=== PATIENT | female | born 1975 | race Caucasian/White ===

== ENCOUNTER → 2016-05-23 | Outpatient (CLI) | payer BC ==
--- NOTE | 2016-05-24 11:07 | MM ---
Reason for exam: clinical finding. Last mammogram was performed 4 years and 11 months ago. Physical Findings: Nurse did not find any significant physical abnormalities on exam. [facility] Diagnostic Mammo w CAD NICHOLAS Bilateral CC and MLO view(s) were taken. Prior study comparison: June 07, 2011, mammogram, performed at [facility]. The breast tissue is heterogeneously dense. This may lower the sensitivity of mammography. Finding: There are typically benign round calcifications in the left breast. There is no discrete abnormality. These results were verbally communicated with the patient on 05/24/16. ASSESSMENT: Benign, BI-RAD 2 RECOMMENDATION: Routine screening mammogram of both breasts in 1 year.
== END | disposition home or self-care (01) ==
LOC: RADMAMWWP 15:45
PROVIDERS: ATTEND Internal Medicine
DX: N64.52 Nipple discharge (principal)

== ENCOUNTER → 2016-06-12 | Outpatient (CLI) | payer BC ==
--- NOTE | 2016-06-13 07:36 | USB ---
Reason for exam: clinical finding. Indicated problem(s): non-bloody discharge and pain in both breasts. Physical Findings: Nurse Summary: Patient complains of right breast lump for two years bilateral hart/green discharge, bilateral tenderness (nurse mm). US Breast BILAT Right breast ultrasound including all four quadrants, the retroareolar region and axilla demonstrates a 0.7 x 0.8 x 0.6cm oval cystic cluster at 12 o'clock and a 0.4 x 0.3 x 0.7cm cystic cluster at 6 o'clock. Left breast ultrasound including all four quadrants, the retroareolar region and axilla demonstrates a 0.8 x 0.4 x 0.9cm oval, cystic cluster at 11 o'clock. These results were verbally communicated with the patient and result sheet given to the patient on 06/12/16. ASSESSMENT: Benign, BI-RAD 2 RECOMMENDATION: Routine screening mammogram of both breasts in 1 year. Manage patient on a clinical basis.
== END | disposition home or self-care (01) ==
LOC: RADUSWWP 15:50
PROVIDERS: ATTEND Surgery
DX: N64.52 Nipple discharge (principal); N64.4 Mastodynia

== ENCOUNTER 2019-09-06 00:44 | Emergency (ER) | payer BC, OTHER ==
[2019-09-06 00:50] VITALS: BP 113/77; PULSE 96; RESP 18; TEMP 98
--- NOTE | 2019-09-06 01:38 | ED ---
ENT HPI - General Chief complaint: ENT Stated complaint: Ear Pain Time Seen by Provider: 09/06/19 01:02 Source: patient Limitations: no limitations - History of Present Illness Initial comments: 44 year-old female patient presents to the emergency department today for evaluation of right ear pain and discomfort. Patient states that for the last 2-3 days her right ear has been very itchy. States she has been itching it with her finger and Q-tips. Patient states today it seemed to be more irritated and tender to the touch. Denies any drainage from the ear. Denies any history of diabetes or other medical conditions. Denies fever or chills. States that she has been having some clear nasal drainage and increase in her ALLERGY symptoms over the last few days. She has been taking [id number] medication for this. - Related Data Previous Rx's Medication Instructions Recorded Ofloxacin 0.3% Otic Soln [Floxin 5 drops RIGHT EAR BID #15 ml 09/06/19 0.3% Otic Soln] Allergies Allergy/AdvReac Type Severity Reaction Status Date / Time paroxetine [From Paxil] Allergy Hallucinati Verified 09/06/19 00:50 ons prochlorperazine Allergy Itching Verified 09/06/19 00:50 [From Compazine] Review of Systems ROS Statement: Those systems with pertinent positive or pertinent negative responses have been documented in the HPI. ROS Other: All systems not noted in ROS Statement are negative. Past Medical History Past Medical History: Hypertension Additional Past Medical History / Comment(s): cervical cancer when 13 years old History of Any Multi-Drug Resistant Organisms: None Reported Past Surgical History: Cholecystectomy, Tubal Ligation Past Psychological History: No Psychological Hx Reported Smoking Status: Current every day smoker Past Alcohol Use History: Rare Past Drug Use History: Marijuana General Exam Limitations: no limitations General appearance: alert, in no apparent distress, other (This is a well-developed, well-nourished adult female patient in no acute distress. Vital signs upon presentation are temperature 98.0F, pulse 96, respirations 18, blood pressure 113/77, pulse ox 100% on room air.) Eye exam: Present: normal appearance, PERRL, EOMI. Absent: scleral icterus, conjunctival injection, periorbital swelling ENT exam: Present: normal oropharynx, mucous membranes moist, TM's normal bilaterally, normal external ear exam (External auditory canal to the right side that shows some erythema and abrasion.) Respiratory exam: Present: normal lung sounds bilaterally. Absent: respiratory distress, wheezes, rales, rhonchi, stridor Cardiovascular Exam: Present: regular rate, normal rhythm, normal heart sounds. Absent: systolic murmur, diastolic murmur, rubs, gallop, clicks GI/Abdominal exam: Present: normal bowel sounds Course Vital Signs 09/06/19 00:46 Temperature 98 F Pulse Rate 96 Respiratory 18 Rate Blood Pressure 113/77 O2 Sat by Pulse 100 Oximetry Medical Decision Making - Medical Decision Making 44 year-old female patient presents to the emergency department today for right ear tenderness and discomfort. Physical examination does reveal your canal abrasion. No swelling or drainage. No fever or chills. Patient was advised to not insert anything into her ear. She is instructed to take ibuprofen and Tylenol for pain control. She'll be given a prescription for ofloxacin eardrops if her symptoms should worsen or persist beyond 2 days. She is instructed to follow-up with her primary care physician for recheck in 1-2 days. Return parameters were discussed in detail. She verbalizes understanding and agrees with this plan. Disposition Clinical Impression: Ear canal abrasion Disposition: HOME SELF-CARE Condition: Good Instructions (If sedation given, give patient instructions): Earache (ED), Abrasion (ED) Additional Instructions: Use drops if symptoms don't improve over the next two days. Follow up with your primary care physician for recheck in 1-2 days. Return to the emergency department for any new, worsening, or concerning symptoms. Prescriptions: Ofloxacin 0.3% Otic Soln [Floxin 0.3% Otic Soln] 5 drops RIGHT EAR BID #15 ml Is patient prescribed a controlled substance at d/c from ED?: No Referrals: Manuel Bowman MD [Primary Care Provider] - 1-2 days Time of Disposition: 01:37
== END 2019-09-06 01:56 | disposition home or self-care (01) ==
LOC: EC 00:44
DX: S00.411A Abrasion of right ear, initial encounter (principal); F17.200 Nicotine dependence, unspecified, uncomplicated; Z85.41 Personal history of malignant neoplasm of cervix uteri; Z88.8 Allergy status to other drugs, medicaments and biological substances; X58.XXXA Exposure to other specified factors, initial encounter
CPT/HCPCS: 99282

== ENCOUNTER 2020-10-05 | Emergency (ER) | payer OTHER | END 2020-10-06 00:16 | disposition home or self-care (01) | CPT/HCPCS: 70450; 70486; 72125; 99283 ==

== ENCOUNTER → 2022-11-16 | Outpatient (CLI) | payer OTHER ==
--- NOTE | 2022-11-16 11:24 | CT ---
EXAMINATION TYPE: CT lumbar spine wo con CT DLP: 886 mGycm, Automated exposure control for dose reduction was used. DATE OF EXAM: 11/16/2022 11:09 AM COMPARISON: None. CLINICAL INDICATION:Female, 47 years old with history of M51.26 OTHER INTERVERTEBRAL DISC DISPLACEMEN T; PHH, OTHER INTERVERTEBRAL DISC DISPLACEMENT TECHNIQUE: Multiple axial images were obtained from the midportion of T11 through the sacroiliac ирина nts. Soft tissue and bone windows in coronal and sagittal planes were obtained and reviewed. FINDINGS: Alignment: There are 5 lumbar type vertebral bodies within normal alignment. Bone: No evidence of fracture is identified. Discs: T12-L1: No spinal canal or neural foraminal stenosis is identified. L1-L2: Broad-based disc bulge with minimal effacement of the anterior thecal sac. Mild left neural fo raminal stenosis. The right neural foramen is patent. L2-L3: Broad-based disc bulge with mild effacement of the anterior thecal sac. Mild bilateral neural foraminal stenosis. L3-L4: Broad-based disc bulge with minimal effacement of the anterior thecal sac. Mild bilateral neur al foraminal stenosis. L4-L5: Broad-based disc bulge with mild effacement of the anterior thecal sac. Mild bilateral neural foraminal stenosis. L5-S1: Vacuum disc disease is present. Central disc protrusion with caudal migration of 6 mm superimp osed upon a broad-based disc bulge with mild effacement of anterior thecal sac. Mild to moderate left neural foraminal stenosis. The right neural foramen is patent. Other: Postcholecystectomy changes. IMPRESSION: 1. No evidence of fracture of the lumbar spine. 2. L5-S1 disc herniation with caudal migration resulting in mild central canal stenosis. There is mil d to moderate left neural foraminal stenosis at this level. 3. Mild multilevel degenerative disc disease as described above.
== END | disposition home or self-care (01) ==
LOC: RADCTMAIN 10:31
PROVIDERS: ATTEND Orthopaedic Surgery
DX: M51.26 Other intervertebral disc displacement, lumbar region (principal); M47.816 Spondylosis without myelopathy or radiculopathy, lumbar region; M48.061 Spinal stenosis, lumbar region without neurogenic claudication
CPT/HCPCS: 72131

== ENCOUNTER → 2022-11-16 | Outpatient (CLI) | payer OTHER | END | disposition home or self-care (01) | LOC: LABPAT 11:06 | PROVIDERS: ATTEND Orthopaedic Surgery | DX: Z01.812 Encounter for preprocedural laboratory examination (principal); M51.26 Other intervertebral disc displacement, lumbar region; M47.816 Spondylosis without myelopathy or radiculopathy, lumbar region; Z22.322 Carrier or suspected carrier of Methicillin resistant Staphylococcus aureus | CPT/HCPCS: 87070 ==

== ENCOUNTER → 2022-11-16 | Outpatient (CLI) | payer OTHER ==
[2022-11-16 16:37] LABS: Prothrombin Time 10.6 sec (9.0-12.0)
[2022-11-17 02:19] LABS: HCT 37.7 % (37.2-46.3); HGB 12.8 d/dL (12.0-15.0); MCH 32.1 pg (27.0-32.0); MCV 94.5 FL (80.0-97.0); Mean Platelet Volume 10.6 FL (9.5-12.2); NRBC Per 100 WBC 0 X 10*3/uL (0.00-0.01); Platelet Count 259 X 10*3/uL (140-440); RBC 3.99 X 10*6/uL (4.10-5.20); RDW 13.4 % (11.5-14.5); WBC 7.53 X 10*3/uL (4.50-10.00)
[2022-11-17 02:22] LABS: Blood Urea Nitrogen 6.3 mg/dL (9.0-27.0); Calcium 9.6 mg/dL (8.7-10.3); Chloride 104 mmol/L (96-109); Glucose 86 mg/dL (70-110); Potassium 3.9 mmol/L (3.5-5.5); Sodium 142 mmol/L (135-145)
== END | disposition home or self-care (01) ==
LOC: LABWHC1 11:08
PROVIDERS: ATTEND Orthopaedic Surgery
DX: Z01.812 Encounter for preprocedural laboratory examination (principal); M54.31 Sciatica, right side; M51.36 Other intervertebral disc degeneration, lumbar region
CPT/HCPCS: 36415; 80048; 85027; 85610

== ENCOUNTER → 2022-11-16 | Outpatient (CLI) | payer OTHER | END | disposition home or self-care (01) | LOC: LABWHC1 15:19 | PROVIDERS: ATTEND Orthopaedic Surgery | DX: Z53.9 Procedure and treatment not carried out, unspecified reason (principal) ==

== ENCOUNTER 2022-11-23 10:09 | Day surgery (SDC) | payer OTHER ==
--- NOTE | 2022-11-23 07:59 | P.HPOR ---
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 Month and Year of last PT date? Yes How many sessions? 12 Did it help? No Within the last 6 months Physician directed home exercise completed? Yes, the patient has trialed the physician directed home exercise program without relief of their symptoms. Medications Yes; List: Gabapentin, Motrin 800, Medrol Dosepak Alternative interventions Chiropractic:Yes Massage therapy:No R.I.C.E:Yes Brace: No Injections No RFA:No SUBJECTIVE: Ms. Bates returns to the office today for a pre-operative appointment for her L5-S1 MIS TLIF, right-sided approach. Since last visit patient reports an increase in pain and tension across the low back, buttocks and right leg associated with an increase in right foot numbness as well. Patient is tender to palpation of the low back. The patient continues to report a sharp, throbbing lumbar pain that has been ongoing for approximately 18 years with no known injury or trauma to indicate an exact onset of their symptoms. In addition to their lumbar pain, they continue to report that it radiates down into the bilateral lower extremities, associated with numbness and tingling through the L5-S1 dermatome. The patient states that her right lower extremity pain is much more severe than the left at this time. The patient notes radiating pain into the buttocks and groin. The patient notes decreased range of motion and mobility over the last several months. Patient also states that sneezing or coughing causes shooting low back pain. Overall, the patient has seen a progressive increase in symptoms since their initial onset. She notes that her symptoms are exacerbated by all activity, which makes it very difficult for her to complete many of her daily tasks. The patient is having severe sleep disturbances as well due to their ongoing pain and associated symptoms. Regarding treatments, the patient has previously trialed physical therapy, at home stretches/exercises, career services manager, at home heat/ice therapies, activity modification, and medication management, all with no significant or sustained relief of her symptoms. The patient denies trialing any other modalities at this time. For their symptoms, the patient has been taking Gabapentin, Motrin 800, and Medrol dosepak all without good relief of her symptoms. Otherwise the patient denies any f/c/sob/cp, no incision concerns, no bladder or bowel retention/incontinence, no perineal numbness/tingling, and ambulates independently today. HPI: Ms. Bates presents to the office on 10/04/22 for an evaluation of their low back pain. The patient reports a sharp, throbbing lumbar pain that has been ongoing for approximately 18 years with no known injury or trauma to indicate an exact onset of their symptoms. In addition to their lumbar pain, they do report that it radiates down into the bilateral lower extremities, associated with numbness and tingling through the L5-S1 dermatome. The patient states that his right lower extremity pain is much more severe than the left at this time. The patient notes a worsening throbbing pain throughout the posterior right thigh. The patient notes radiating pain into the buttocks and groin as well. The patient notes decreased range of motion and mobility over the last 1 to 2 months. Overall, the patient has seen a progressive increase in symptoms since their initial onset. She notes that her symptoms are exacerbated by all activity, w hich makes it very difficult for her to complete many of her daily tasks. The patient is having severe sleep disturbances as well due to their ongoing pain and associated symptoms. Regarding treatments, the patient has previously trialed physical therapy, at home stretches/exercises, career services manager, at home heat/ice therapies, activity modification, and medication management, all with no significant or sustained relief of her symptoms. The patient denies trialing any other modalities at this time. For their symptoms, the patient has been taking Ibuprofen, [place], & Norflex. Otherwise the patient denies any f/c/sob/cp, no incision concerns, no bladder or bowel retention/incontinence, no perineal numbness/tingling, and ambulates independently today. The patients' past social, medical, family, surgical history, as well as review of systems, have been reviewed. Please refer to the Neurosurgery History and Physical form that has been scanned in to our electronic medical record system. 14 points review of systems completed and as stated in HPI, all other systems reviewed are negative. Social History: [id number]:current smoker P3 Smoking Amount:1/2 PPD Alcohol:none Family History: [id number]: esophageal P2 Father: kidney Sibling(s): alive & well. Family History: cervical cancer. Past Medical History: P1None Surgical / Procedural History: tubal ligation cyst removal cholecystectomy cervical cancer Current Medications: P1Rx: Claritin 10 mg tablet Ref: 0 Rx: HYDROcodone 5 mg-acetaminophen 325 mg tablet Ref: 0 Rx: IBU 800 mg tablet Ref: 0 Rx: lisinopriL 10 mg tablet Ref: 0 Rx: MMJ , Ref: 0 Rx: Norflex Ref: 0 Rx: Singulair 10 mg tablet Ref: 0 Rx: Xanax 0.25 mg tablet Ref: 0 Rx: gabapentin 300 mg capsule Ref: 0 Rx: Medrol ([place]) 4 mg tablets in a dose pack Ref: 0 P1 PHYSICAL EXAMINATION: General:Awake, alert, appropriate for age, in no acute distress. HEENT:No unusual neck masses around region of lateral neck triangle, thyroid, supraclavicular groove Heart:Regular rate and rhythm, normal S1, S2 and no murmur/gallop. Lungs:Clear to auscultation bilaterally with no use of accessory muscles. Extremities:Skin warm and dry without acute lesions, coloration, temperature, skin intact, no tenderness or erythema Integument: Hairy patches:ABSENT Dorsal skin dimples:ABSENT Cafe au lait spots:ABSENT Palpation: Please see Pain drawing on Intake sheet for further detail. Midline spinal tenderness:No E6 Cervical Tenderness: No E6 Paralumbar tenderness:Yes E6 Parathoracic tenderness:No E6 Buttocks tenderness: No E6 Sacroiliac Tenderness:No POSTURAL and MUSCULO-SKELETAL EVALUATION: Coronal Balance: NEUTRAL Recumbent testing: Patient isable to lay flat on back Sagittal Balance: NEUTRAL Shoulder Profile: LEVEL Pelvic Girdle: LEVEL Neck ROM: UNRESTRICTED Lumbar ROM: RESTRICTED Shoulder ROM: Symmetrical Hip ROM: Symmetrical Knee ROM: Symmetrical Hands: Normal appearance, Symmetrical Feet: Normal appearance, Symmetrical VASCULAR STATUS : LEFT RIGHT Wrist Pulses INTACT INTACT Pedal Pulses (Dors. pedis & post.tibialis) INTACT INTACT Color NORMAL NORMAL Edema Absent Absent NEUROLOGIC EXAMINATION: Mental Status:Awake and alert, fully oriented, with normal attention, concentration and memory, and fluent, appropriate speech. Cranial Nerves: I: Olfactory not tested. II: Visual acuity normal, no visual field deficit noted with confrontation. III,IV: Normal pupillary reflexes & intact extraocular movements without nystagmus. V,: Intact symmetrical facial sensation. VII: Intact symmetrical facial motor movement VIII: Hearing intact. IX,X: Intact gag, swallow, & normal voice. XI: Sternocleidomastoid, trapezius function intact. XII: Tongue midline with normal movements. L'hermitte's Sign:positive Spurling'Sign:Absent bilaterally. Cubital percussion test: Absent bilaterally. Ellison-Tinel sign - Carpal region:Absent bilaterally. Straight Leg Raising:Positive, right Crossed straight leg raise: negative MOTOR EXAM (0-5/5, N/T Muscle appearance:Symmetrical, without signs of atrophy or dystrophy UPPER EXTREMITY RIGHT LEFT Shoulder Abduction 5/5 5/5 Biceps 5/5 5/5 Triceps 5/5 5/5 Wrist Extension 5/5 5/5 Hand Intrinsic 5/5 5/5 Telecommunications Engineer 5/5 5/5 Hand and finger dexterity intact bilaterally?yes Disdiadochokinesis examination negative bilaterally? yes LOWER EXTREMITY RIGHT LEFT Hip Flexion 4/5 4/5 Knee Extension 4/5 4/5 Knee Flexion 4/5 4/5 Dorsiflexion 4/5 4/5 Plantarflexion 4/5 4/5 EHL 4/5 4/5 FHL 4/5 4/5 Toe heel walk / heel-toe walk intact while maintaining satisfactory balance?yes Squatting/straightening w/o assistance to a min of 60 degree knee flexion? yes Single leg stance:intact Trendelenburg sign negative bilaterally REFLEXES(0-4/2, NT)Upper ExtremityLower Extremity Right 2 2 Left 2 2 Pathological Reflexes RIGHT LEFT Ellison's Absent Absent Clonus Absent Absent Babinski Absent Absent Sensory system (0-4, N/T) Test type RU WISAM RL LL Joint-Position 2 2 2 2 Vibration 2 2 2 2 Pain & LT sense 2 2 2 2 Dermatomal Deficit: None None None None Gait and Functional Evaluation: Ambulatory aids:Independent Romberg's test:Intact bilaterally Steady Gait RADIOGRAPHIC STUDIES: XRay Lumbar AP/lateral 2 views taken at [facility] on 0 10/04/22 of Lumbar Spine:spondylosis noted L5-S1 with stenosis there is facet hypertrophy facet arthrosis noted. There is disc collapse and disc height loss. No fractures otherwise noted. Alignment maintained. AP pelviscongruent level pelvis no fracture [facility] LumbarSpine:L5-S1 herniated nucleus pulposus noted with stenosis. There is spondylosis L5-S1 with disc height loss disc desiccation facet hypertrophy and ligamentum hypertrophy. Always contributed to moderate stenosis at this level. No acute fracture or dislocation was noted no lesions. IMPRESSION: It was my pleasure to have seen and examined Allison. I reviewed the patient's clinical syndrome, physical findings, and imaging studies during the appointment today. It is my impression that the patient has a diagnosis of. 1. L5-S1 herniated nucleus pulposus 2. L5-S1 spondylosis with stenosis 3. Low back pain 4. Lower extremity radiculopathy I outlined the natural course history without intervention and various interventional options. PLAN: Based on my findings I suggest the following course of action: - CT of lumbar spine ordered today stat - I discussed treatment options with the patient, including operative and non- operative options, and they have elected to proceed with the following surgical procedure: L5-S1 MIS TLIF, right-sided approach The indications, risks, benefits, and alternatives to surgery were discussed with the patient and family at length. Specifically, but not limited to, the risks of infection, stiffness, recurrence of symptoms, need for revision surgery, local numbness, neurovascular injury, and blood clots were discussed. The patient's questions were answered. The decision to proceed was made. Consent will be obtained for the procedure. - Ambulate daily. - Take medications as directed. - Ice and rest for pain and swelling control. Spine Surgery Risk Review Ms. Bates is presenting for evaluation of low back and bilateral lower extremity pain, bilateral lower extremity numbness and tingling. It was my pleasure to have seen and examined Ms. Bates. In our visit today we have had a chance to go over subjective complaints, physical examination findings and treatments including the natural course hi story without intervention and various interventional options. The patients imaging demonstrates: XRay Lumbar AP/lateral 2 views taken at [facility] on 10/04/22 of Lumbar Spine:spondylosis noted L5-S1 with stenosis there is facet hypertrophy facet arthrosis noted. There is disc collapse and disc height loss. No fractures otherwise noted. Alignment maintained. AP pelviscongruent level pelvis no fracture MRI [facility] 20[facility] of LumbarSpine :L5-S1 herniated nucleus pulposus noted with stenosis. There is spondylosis L5-S1 with disc height loss disc desiccation facet hypertrophy and ligamentum hypertrophy. Always contributed to moderate stenosis at this level. No acute fracture or dislocation was noted no lesions. On physical exam, Ms. Bates demonstrates: The patient reports a sharp, throbbing lumbar pain that has been ongoing for approximately 18 years with no known injury or trauma to indicate an exact onset of their symptoms. In addition to their lumbar pain, they do report that it radiates down into the bilateral lower extremities, associated with numbness and tingling through the L5-S1 dermatome. The patient states that his right lower extremity pain is much more severe than the left at this time. The patient notes a worsening throbbing pain throughout the posterior right thigh. The patient notes radiating pain into the buttocks and groin as well. The patient notes decreased range of motion and mobility over the last 1 to 2 months. Overall, the patient has seen a progressive increase in symptoms since their initial onset. She notes that her symptoms are exacerbated by all activity, which makes it very difficult for her to complete many of her daily tasks. The patient is having severe sleep disturbances as well due to their ongoing pain and associated symptoms. I have explained to the patient that as their condition progresses it will cause further neurological deficits and eventual paralysis. Based on the patients imaging, physical exam, and the rapid progression and disabling nature of their symptoms, at this time I recommend surgery in the form of a: L5-S1 MIS TLIF, right-sided approach. I discussed the risk and benefits of this procedure at length with Ms. Bates. The patient agreed to considered pursuing the procedure above mentioned. Prior to surgery, she should follow up with her PCP (Cardio, ID, IM etc) for clearance. Questions were invited and answered, and the patient wishes to proceed as outlined below. Currently, I am recommendin. L5-S1 MIS TLIF, right-sided approach 2.Follow up with PCP for surgical clearance. 3.Review of surgical risks and benefits as well as an educational packet on the proposed surgical procedure. Risks: All surgical procedures come with inherent risks, including those related to positioning, anesthesia, intraoperative findings, and postoperative complications. It is important to understand that surgery does not come with any guarantee of a successful outcome as complications and adverse events are always possible. The patient was given a handout in office today discussing the surgical procedure and risks associated with the intervention, both of which were discussed with the patient. These risks include but are not limited to the following: * Experiencing same, different or even worse symptoms in back, neck, arms, or legs compared to before surgery. Requiring further surgery or other forms of treatment presently or at some time in the future at same or other levels of the intended spine surgery. On an extreme but fortunately relatively rare basis severe complication such as blindness, stroke, heart attack, temporary and/or permanent nerve injury, paralysis, coma, or may occur, sometimes without known explanation. Surgical complications may include but are not limited to risk of infection, fluid accumulation in the surgical dissection site, including a seroma or hematoma, that requires additional surgery, wound drainage, bleeding, new numbness or weakness, vision changes/loss, spinal fluid leakage, non-healing and/or infected incision, headaches, difficulty or inability to swallow, hoarseness, hemopneumothorax, pneumothorax, impotence, retrograde ejaculation, vaginal dryness; injury to nerves, spinal cord, blood vessels, lymphatics or other vital organs (i.e., bowel injury, injury to the great vessels); heterotopic bone formation; complications related to the hardware such as screws, rods, cages including misplaced hardware, device failure, instrumentation at the wrong spine level, hardware fracture/breakage, or hardware loosening; vertebral failure of the spinal column above or below the newly placed hardware; retained surgical instrumentations or devices and the need for further surgery. * Medical risks of the planned spine surgery include but are not limited to generalized Infections to the whole body or local areas outside of the surgical site (sepsis), heart attack, bleeding, anaphylaxis, meningitis, seizure, epilepsy, hearing loss, burn bajwa, laceration of the head or other areas of the body, bruising, hypersensitivity of the skin, bladder over distension; allergic reaction; shoulder injury related to positioning; fat, blood and air clots to other areas of the body like heart, lungs, brain; failure of internal organs such as lungs, kidneys, liver and excessive bleeding. If blood transfusions are necessary, note that transfusions may cause intolerance reactions such as anaphylaxis or other complex reactions. Despite best efforts, the results of spine surgery might not heal in terms of bone, soft tissues such as skin, fascia, ligaments, and joints. Additionally, in order to achieve best possible results, spine surgery may be carried out beyond the initially planned levels and involve decompression, fusion including insertion of hardware at levels other than the original intended area of surgical interest change some portions of the procedure in order to ensure the best possible outcomes. With spine surgery and spinal fusion, there are different off label uses of instrumentation (devices, implants and hardware) as well as biological substances (bone morphogenic proteins, demineralized bone matrix) as well as using extra bone from allograft sources (i.e. cadaver bone) or autograft (iliac crest bone, ribs, or the spine itself). The patient has been given information about these practices and their inherent risks and benefits. [facility] is an educational center that serves as a training facility for neurosurgical and orthopedic LEADERSHIP DEVELOPMENT MANAGER and Nursing students. Physician assistants are medically trained surgical providers who function in the outpatient, inpatient, and operating room setting under the direct supervision of the attending surgeon. [facility] has multiple operating rooms with single and overlapping rooms running daily. They currently function under the required guidelines as produced by the [facility] Finance Committee with regards to the overlapping rooms and will continue to comply with changes to this policy as they occur. The requirements include and are complied with as follows: (1) the critical portions of the overlapping rooms will not occur at the same time, (2) the attending physician will be physically present during the critical portions of the procedure and immediately available during the entire case, and (3) a back-up attending is designated should the primary attending not be immediately available. The patient has had a chance to review all the listed information, has been given print outs detailing this information, and has had all his/her questions answered to their satisfaction. It was my pleasure to have seen and examined Ms. Bates. In our visit today we have had a chance to go over my understanding of our patient's current condition, the natural course history without intervention and various interventional options. Questions were invited and answered, and the patient wishes to proceed as outlined above. I have seen and examined the patient for 25 minutes and we have spent more than 50% of the time in repeat and detailed counseling about the patient's condition, its natural course history with out and as much as can be predicted with surgery and re-review of various surgical treatment options. In conclusion, Ms. Bates requested we proceed with the above suggested surgery and are willing to accept risks and limitations of the suggested surgery as nature of the disease process and our best attempts at treatment for the condition. Thank you again for allowing us to be part of your patient's care. Please don't hesitate to contact me if you have any further questions. Follow- up: Post procedure Patient Education: (Informational booklet, instructions, etc) given at today's appointment: Yes .ED:Patient Education: Y Medications Reviewed: YES In our visit today Ms. Bates and I have had a chance to go over my understanding of the patient's current condition, the natural course history without intervention and various interventional options. Questions were invited and answered, and the patient wishes to proceed as outlined above. I will be sure to keep you updated afterMs. Bates returns here for further follow-up. Thank you again for your referral. Please do not hesitate to contact me if you have any further questions. Signed and authenticated by: Jacky Summers [facility] [address] [address] This message is confidential, intended only for the named recipient(s) and may contain information that is privileged or exempt from disclosure under applicable law. If you are not the intended recipient(s), you are notified that the dissemination, distribution or copying of this information is strictly prohibited. If you received this message in error, please notify the sender then delete this message. Patient verbalizes understanding of the information discussed. The above note was initiated by Herminio Llanes, physician recording dairy and food laboratory assistant for Dr. Jacky Love. This note has been reviewed by Dr. Love, who has made his personal changes and impressions for this document. CC: Eyal Bowman M.D. #Orders: CT Lumbar Spine # SIGNED BY Jacky Love ([facility])11/21/2022 06:37A Past Medical History Past Medical History: Cancer, Hypertension, Musculoskeletal Disorder, Osteoarthritis (OA) Additional Past Medical History / Comment(s): cervical cancer when 13 years old, allergy induced asthma, pain down right buttock & leg, migraines History of Any Multi-Drug Resistant Organisms: None Reported Past Surgical History: Cholecystectomy, Tubal Ligation Additional Past Surgical History / Comment(s): conization of cervix, hysterscopy to remove scar tissue Past Anesthesia/Blood Transfusion Reactions: No Reported Reaction Smoking Status: Former smoker - Past Family History Mother Family Medical History: No Reported History Medications and Allergies Home Medications Medication Instructions Recorded Confirmed Type ALPRAZolam [Xanax] 0.25 mg PO TID PRN 11/16/22 11/16/22 History Cetirizine HCl [Zyrtec] 10 mg PO DAILY 11/16/22 11/16/22 History Gabapentin [Neurontin] 300 mg PO TID PRN 11/16/22 11/16/22 History Ibuprofen [Motrin] 800 mg PO Q6H PRN 11/16/22 11/16/22 History Nicotine 14Mg/24Hr Patch [Habitrol 1 patch TRANSDERM DAILY 11/16/22 11/16/22 History 14Mg/24Hr Patch] lisinopriL [Zestril] 10 mg PO DAILY 11/16/22 11/16/22 History Allergies Allergy/AdvReac Type Severity Reaction Status Date / Time paroxetine [From Paxil] Allergy Hallucinati Verified 11/16/22 16:48 ons prochlorperazine Allergy Itching Verified 11/16/22 16:48 [From Compazine] Physical Examination Osteopathic Statement: *. No significant issues noted on an osteopathic structural exam other than those noted in the History and Physical/Consult.
[~2022-11-23 10:09] MED LIST: ACETAMINOPHEN TAB 500 MG TAB PO PRN; GABAPENTIN 300 MG CAP PO PRN; LIDOCAINE 1% (10MG/ML) FOR IV START INTRADERMA PRN; MIDAZOLAM 2 MG/2 ML VIAL IV PRN; ONDANSETRON 4 MG/2 ML VIAL IVP ONE; ONDANSETRON 4 MG/2 ML VIAL IVP PRN; TRANEXAMIC 1,000 MG/100ML-NACL 1,000 MG in SALINE 1 100ML.BAG IVPB PRN; VANCOMYCIN 1,000 MG in SODIUM CHLORIDE 0.9% 250 ML IVPB PRN
[2022-11-23] MEDS: DEXAMETHASONE SOD PHOSPHATE 4 MG/ML 1 ML VIAL IV ONE ×2 (11:20→17:51)
[2022-11-23] MEDS: LACTATED RINGERS 1,000 ML IV SCH ×2 (11:20→16:56)
[2022-11-23] MEDS ORDERED: MIDAZOLAM 2 MG/2 ML VIAL ONE (12:30)
[2022-11-23] MEDS ORDERED: KETAMINE 10 MG/ML 20 ML VIAL ONE (12:30)
[2022-11-23] MEDS ORDERED: PROPOFOL 10 MG/ML 20 ML VIAL IV ONE (12:30)
[2022-11-23] MEDS ORDERED: NEOSTIGMINE 1 MG/ML 10 ML VIAL ONE (12:30)
[2022-11-23] MEDS ORDERED: PHENYLEPHRINE-0.9% NACL SYG 1,000 MCG/10 ML SYRINGE ONE (12:30)
[2022-11-23] MEDS ORDERED: LIDOCAINE 2% INJ 20 MG/ML (2 ML VIAL) ONE (12:30)
[2022-11-23] MEDS ORDERED: ROCURONIUM 10 MG/ML (5 ML VIAL) IV ONE (12:30)
[2022-11-23] MEDS ORDERED: TRANEXAMIC 1,000 MG/100ML-NACL PREMIX BAG ONE (12:30)
[2022-11-23] MEDS ORDERED: SUCCINYLCHOLINE CHLORIDE 200 MG/10 ML VIAL IV ONE (12:30)
[2022-11-23] MEDS ORDERED: ePHEDrine 50 MG/ML 1 ML VIAL ONE (12:30)
[2022-11-23] MEDS ORDERED: GLYCOPYRROLATE 0.2 MG/ML 2 ML VIAL ONE (12:30)
[2022-11-23] MEDS ORDERED: fentaNYL (PF) 50 MCG/ML 2 ML AMP ONE (12:30)
[2022-11-23] MEDS ORDERED: THROMBIN (BOVINE) 5,000 UNIT VIAL TOPICAL ONE (12:35)
[2022-11-23] MEDS ORDERED: LIDOCAINE 2%-EPI 1:100,000 20 ML VIAL SQ ONE (12:35)
[2022-11-23] MEDS ORDERED: GELATIN SPONGE,ABSORB (LARGE) 1 EACH SPONGE TOPICAL ONE (12:35)
[2022-11-23] MEDS ORDERED: BUPIVACAINE (PF) 0.25% 10 ML VIAL SQ ONE (12:35)
[2022-11-23] MEDS ORDERED: VANCOMYCIN 1,000 MG VIAL MISCELLANE ONE (14:10)
[2022-11-23] MEDS ORDERED: HYDROcodone/APAP 5-325MG 1 EACH TAB PO PRN (14:57)
[2022-11-23] MEDS ORDERED: HYDROmorphone 0.5 MG/0.5 ML SYRINGE IVP PRN (14:57)
[2022-11-23] MEDS ORDERED: MAGNESIUM HYDROXIDE 2,400 MG/30 ML CUP PO PRN (14:57)
[2022-11-23] MEDS ORDERED: SENNOSIDES-DOCUSATE SODIUM 1 EACH TAB PO PRN (14:57)
[2022-11-23] MEDS: HYDROmorphone 0.5 MG/0.5 ML SYRINGE IVP PRN ×3 (15:09→16:08)
--- NOTE | 2022-11-23 15:30 | FL ---
Intraoperative/procedural fluoroscopic services were provided. Total fluoroscopy time is 50 seconds w ith a total of 8 submitted images to PACS. Please see the operative/procedural note for further detai ls. DAP: 06/19/1973 [id number]
[2022-11-23] MEDS ORDERED: droPERidol 5 MG/2 ML VIAL IVP ONE (16:12)
[2022-11-23] MEDS: HYDROcodone/APAP 10-325MG 1 EACH TAB PO PRN (16:57)
[2022-11-23] MEDS: ACETAMINOPHEN TAB 325 MG TAB PO SCH (18:20)
[2022-11-23] MEDS: HYDROmorphone 1 MG/ML 1 ML SYRINGE IVP PRN ×2 (18:21→22:15)
[2022-11-23] MEDS: ONDANSETRON 4 MG/2 ML VIAL IVP PRN (18:43)
[2022-11-23] MEDS: CYCLOBENZAPRINE 5 MG TAB PO PRN (20:43)
--- NOTE | 2022-11-23 22:26 | CT ---
EXAMINATION TYPE: CT lumbar spine wo con CT DLP: 652.2 mGycm, Automated exposure control for dose reduction was used. DATE OF EXAM: 11/23/2022 9:16 PM COMPARISON: CT lumbar spine 11/16/2022. CLINICAL INDICATION:Female, 47 years old with history of s/p L5-S1 MIS; PHH, s/p L5-S1 MIS TECHNIQUE: Multiple axial images were obtained from the midportion of T11 through the sacroiliac ирина nts. Soft tissue and bone windows in coronal and sagittal planes were obtained and reviewed. FINDINGS: Postsurgical changes from L5-S1 with bilateral pedicular screws and rods and disc fusion cage. Hardwa re appears intact with appropriate alignment. Hardware creates streak artifact which limits evaluatio n. No acute fracture. There is associated soft tissue edema and gas with skin anil. Small amount o f midline shift fluid of this posterior back of his tissues. No gross evidence for significant centra l canal or neural foraminal stenosis at L5-S1. Broad-based disc bulge with mild effacement of the int rathecal sac suggested at L2 or L5. Mild bilateral neural foraminal narrowing suggested. Broad-based disc bulge with minimal effacement of the anterior thecal sac at L2-L3, L3-L4 with mild bilateral luke ral foraminal stenosis. Broad-based disc bulge at L1-L2 with minimal effacement of the anterior theca l sac. Mild left neural foraminal stenosis. The right neural foramen is patent. Linear atelectasis within both lung bases. Mildly distended stomach. Post cholecystectomy changes. IMPRESSION: 1. No evidence of fracture of the lumbar spine. 2. Postsurgical changes of lumbar fusion at L5-S1. Hardware appears intact with appropriate alignment . 3. Mild multilevel degenerative disc disease as described above.
[2022-11-24] MEDS: ACETAMINOPHEN TAB 325 MG TAB PO SCH ×4 (00:13→17:35)
[2022-11-24] MEDS: HYDROcodone/APAP 10-325MG 1 EACH TAB PO PRN ×4 (00:16→19:00)
[2022-11-24] MEDS: ONDANSETRON 4 MG/2 ML VIAL IVP PRN ×3 (00:46→19:00)
[2022-11-24] MEDS: HYDROmorphone 1 MG/ML 1 ML SYRINGE IVP PRN ×4 (04:43→21:30)
[2022-11-24] MEDS: CYCLOBENZAPRINE 5 MG TAB PO PRN ×2 (07:04→15:18)
[2022-11-24 09:25] VITALS: RESP 18
--- NOTE | 2022-11-24 09:48 | P.PN ---
Subjective Progress Note Date: 11/24/22 Principal diagnosis: 1. L5-S1 herniated nucleus pulposus 2. L5-S1 spondylosis with stenosis 3. Low back pain 4. Lower extremity radiculopathy Patient seen and examined at bedside. Patient is resting comfortable in bed. Patient reports her pain is managed on current regimen. Surgical incisions the paralumbar spine, dressings are clean dry and intact. Patient reports that she has been ambulatory since procedure and is tolerating activity well. Patient denies any numbness or tingling to bilateral lower extremities. Patient seems she is progressing well towards discharge tomorrow 11/25/2022. She states she has multiple family members that are able to assist her at home and declines need for home care at this time. No acute events overnight. Objective - Vital Signs Vital signs: Vital Signs Temp 97.5 F L 11/24/22 00:16 Pulse 56 L 11/24/22 00:16 Resp 17 11/24/22 00:16 BP 102/65 11/24/22 00:16 Pulse Ox 100 11/24/22 00:16 FiO2 Intake & Output 11/23/22 11/24/22 11/24/22 18:59 06:59 18:59 Intake Total 1950 Output Total 450 825 Balance 1500 -825 Weight 60.6 kg Intake: IV 1950 Output: Urine 400 825 Estimated Blood Loss 50 Other: Voiding Method Indwelling Catheter Indwelling Catheter - Exam Physical Examination General: The patient is awake and alert, in no acute distress Skin: Skin is warm and dry with no obvious rashes or lesions. Surgical incisions to the paralumbar spine, dressings are clean dry and intact. Eye: Pupils are equal, round and reactive to light, extra-ocular movements are intact; there is normal conjunctiva bilaterally. Neck: The neck is supple, there is no tenderness and ROM intact. Cardiovascular: There is a regular rate and rhythm. No murmur, rub or gallop is appreciated. Respiratory: Lungs are clear to auscultation, respirations are non-labored, breath sounds are equal. Gastrointestinal: Soft, non-distended, non-tender abdomen. Back: There is no tenderness to palpation in the midline, paralumbar, parathoracic or buttocks region. There is no obvious deformity . Musculoskeletal: ROM limited secondary to pain and stiffness from surgical procedure. Muscle strength in all major muscle groups of bilateral upper extremities 5/5, bilateral lower extremities 5/5. Neurological: CN 2-12 intact. There are no obvious motor or sensory deficits. Movement and coordination equal and intact. Sensory exam to light touch intact C5-T1 and intact from L2-S1. Reflexes 2/4 in bilateral upper and lower extremities. Negative Hoffmans, babinski, and clonus signs. Psychiatric: Cooperative, appropriate mood & affect, normal judgment. Assessment and Plan Assessment: Postop day 1: L5-S1 minimally invasive TLIF 1. L5-S1 herniated nucleus pulposus 2. L5-S1 spondylosis with stenosis 3. Low back pain 4. Lower extremity radiculopathy Plan: -Appreciate applications development consultant and team management. -Activity: Ambulate QID, OOB all meals, up and about, limit lifting bending twisting to less than 5 lbs. Use walker or cane if needed for stability. -Daily PT/OT, increase ambulation strength and balance. -Pain control: Adequate at this time -Meds: reviewed -GI ppx: senna, Miralax -DVT PPX: OK to restart Heparin tonight -Hygiene: Shower today. Maintain dressing clean and dry. Meticulous cleaning after BMs away from the incision site -Encourage IS 10x/hr -Dispo: Anticipate discharge home tomorrow. *I reviewed and discussed this case with my attending Dr. Love, whom has reviewed this chart and films and is in agreement with assessment and plan of care as outlined above. I have personally seen and examined the patient, performed the documentation and the assessment and plan as written. Number of minutes spent on the visit: 20m.
--- NOTE | 2022-11-24 10:13 | P.OP ---
Date of Procedure: 11/23/22 Preoperative Diagnosis: 1. L5-S1 spondylosis 2. L5-S1 bilateral foraminal stenosis 3. Lower extremity radiculopathy with paresthesias 4. Low back pain Postoperative Diagnosis: 1. L5-S1 spondylosis 2. L5-S1 bilateral foraminal stenosis 3. Lower extremity radiculopathy with paresthesias 4. Low back pain Procedure(s) Performed: 1. L5-S1 posterior lateral and interbody fusion (41690) 2. L5-S1 laminal foraminotomy for decompression and cage placement (65158) 3. Nonsegmental instrumentation L5-S1 (04509) 4. Insertion of interbody device L5-S1 (20346) 5. Use of [employer] navigation for screw placement (71855) use of intraoperative neuro monitoring use of intraoperative neuro microscope Implants: - Matthew everest mis SCREW AND JUANJOSE SYSTEM - globus Sabal cage short 9-16 15 -MAGNATOS, ALLOCELL, ARTHROCELL, IFACTOR, AUTOGRAFT Anesthesia: GETA Surgeon: Jacky Love Hot Water Heater Installer #1: Wei Loera (SOPHIE Krause Was present and assisted with all aspects of the case from positioning to dressing placement) Estimated Blood Loss (ml): 50 IV fluids (ml): 1,100 Urine output (ml): 250 Pathology: none sent Condition: stable Disposition: PACU Indications for Procedure: Ms. Bates is presenting for evaluation of low back and bilateral lower extremity pain, bilateral lower extremity numbness and tingling. It was my pleasure to have seen and examined Ms. Bates. In our visit today we have had a chance to go over subjective complaints, physical examination findings and treatments including the natural course history without intervention and various interventional options. The patients imaging demonstrates: XRay Lumbar AP/lateral 2 views taken at [facility] on 10/04/22 of Lumbar Spine:spondylosis noted L5-S1 with stenosis there is facet hypertrophy facet arthrosis noted. There is disc collapse and disc height loss. No fractures otherwise noted. Alignment maintained. AP pelviscongruent level pelvis no fracture [facility] of LumbarSpine:L5-S1 herniated nucleus pulposus noted with stenosis. There is spondylosis L5-S1 with disc height loss disc desiccation facet hypertrophy and ligamentum hypertrophy. Always contributed to moderate stenosis at this level. No acute fracture or dislocation was noted no lesions. On physical exam, Ms. Bates demonstrates: The patient reports a sharp, throbbing lumbar pain that has been ongoing for approximately 18 years with no known injury or trauma to indicate an exact onset of their symptoms. In addition to their lumbar pain, they do report that it radiates down into the bilateral lower extremities, associated with numbness and tingling through the L5-S1 dermatome. The patient states that his right lower extremity pain is much more severe than the left at this time. The patient notes a worsening throbbing pain throughout the posterior right thigh. The patient notes radiating pain into the buttocks and groin as well. The patient notes decreased range of motion and mobility over the last 1 to 2 months. Overall, the patient has seen a progressive increase in symptoms since their initial onset. She notes that her symptoms are exacerbated by all activity, which makes it very difficult for her to complete many of her daily tasks. The patient is having severe sleep disturbances as well due to their ongoing pain and associated symptoms. I have explained to the patient that as their condition progresses it will cause further neurological deficits and eventual paralysis. Based on the patients imaging, physical exam, and the rapid progression and disabling nature of their symptoms, at this time I recommend surgery in the form of a: L5-S1 MIS TLIF, right-sided approach. I discussed the risk and benefits of this procedure at length with Ms. Bates. The patient agreed to considered pursuing the procedure above mentioned. Prior to surgery, she should follow up with her PCP (Cardio, ID, IM etc) for clearance. Questions were invited and answered, and the patient wishes to proceed as outlined below. Currently, I am recommendin. L5-S1 MIS TLIF, right-sided approach Description of Procedure: L5-S1 MIS TLIF JAMIL (R) The patient was seen and examined in the preoperative area. All preoperative protocols were followed. Informed consent was obtained, risks and benefits of the procedure were discussed at length. Risks including bleeding infection damage to the surrounding tissue and risk of reoperation were discussed with the patient. Risk of anesthesia up to and including was discussed with the patient. These are outlined in the risk review. They were willing to accept these risks and all the risks of surgery. The patient was given a weight-based dose of antibiotics in the form of 2 g Ancef. The patient was seen and evaluated by the anesthesia team who deemed them fit for surgery. The site was marked, the patient was willing to proceed with the procedure. The patient was transferred to the operative suite by the Department of anesthesia. They were then drifted off to sleep by the department anesthesia and GETA was performed. The patient tolerated this well. Guido catheter was placed by nursing staff, a-traumatically. Once confirmation of lines and ventilation the patient was transferred to a prone Praveen table very carefully. All bony prominences including wrists, elbows, axilla, chest, hips, and thighs, and feet were padded very well. Special attention was paid to the genitalia, and these were padded accordingly. SCDs were placed on bilateral lower extremities and were connected. Arms were well padded and placed on arm boards up and out in the 90/90 position. Once in position, again we confirmed good ventilation capabilities and that lines were running appropriately. The patients Lumbar spine was then exposed. 1010s were placed outlining the incision site. Standard alcohol was used to clean the incision site and allowed to dry. C-arm was used to needle localize the pedicles at L5-S1 and bio-vikram the patient and confirm level for incision which was marked with a skin marker. Operative briefing was performed with all teams and everyone in agreement to proceed. The patient was then prepped and draped in a normal sterile fashion. Timeout was then performed, and all parties agreed with the procedure to be performed. Skin nicks were made over the PSIS on the right side and pins placed for the [employer] Navigation tracker. This was secured and then a 3D Zhiem spin was registered. Once registered it was tested and confirmed to be accurate. We then targeted pedicles b/l at L5 and S1 using navigated Jamshidi and drill guide. Wires were then placed in their void and confirmed to be in good position on AP and Lateral. Contralateral right side screws were then placed over wires and tested and they all tested above 20 mA. Attention was then turned to interbody fusion at L5-S1. Tubular retractor system was placed at the interspace of L5-S1 using biplanar c arm. Once in position and dilated up to 26mm tube it was locked to the bed and confirmed in good position. Microscope was then brought in for visualization. Limited myomectomy was performed and laminectomy, complete facetectomy and foraminotomy performed at L5-S1 using high speed mendoza and Kerrison rongure. The ligamentum was removed and dural sac decompressed. Exiting and traversing roots visualized and decompressed. Neural elements were then protected, and disc space accessed with an osteotome. Sequential shaving then done under lateral imaging and complete discectomy performed using daksha, pituitary and curette. Once good bleeding endplates accomplished and good height muslim with trials, a combination of autograft, allograft and synthetic placed anterior in the disc space. The cage was then selected and impacted into place under lateral imaging. The cage was then expanded restoring height, lordosis and alignment. The cage was backfilled with bone graft through a funnel. The silverware supervisor removed and area inspected. Good cage placement, stable cage and no injuries. Area was irrigated copiously, and meticulous hemostasis achieved. The tubular retractor was then removed under direct visualization. Screws were then selected and placed over the previously placed wires on the ipsilateral side. This was done in the fashion described above. Screws were then tested, and all tested above 20 mA. Shells were then placed on the tabs. Juanjose length was then measured, and rods selected. They were then placed through the MIS tabs, subfascial. These were then locked into place with set screws and final tightened. Juanjose holders removed and images taken showing good placement of rods good lordosis and muslim of height. Tabs were broken off. Wounds were then copiously irrigated with NSS. Mendoza used for TP decortication and mixture of MagnatOs, allograft and autograft packed posterolateral. Facia was then closed with 0 Vircyl. Deep subq closed with 0 Vicryl. Superficial subq closed with 2-0 Vicryl and skin with anil. Wound edges approximated very well. Wound was then cleaned with alcohol and dried. Wounds dressed in Optifoam dressings. The patient was then transferred off the table back to their hospital bed a- traumatically. They were extubated by the department of anesthesia. They were then transferred to PACU in stable condition having tolerated the procedure with no complications.
[2022-11-24 11:08] LABS: Basophils # (A) 0.02 X 10*3/uL (0.00-0.10); Basophils % (A) 0.2 %; Eosinophils # (A) 0.09 X 10*3/uL (0.04-0.35); HCT 33.9 % (37.2-46.3); HGB 11.3 d/dL (12.0-15.0); Lymphocytes # (A) 1.96 X 10*3/uL (0.90-5.00); Lymphocytes % (A) 22.1 %; MCHC 33.3 d/dL (32.0-37.0); Mean Platelet Volume 10.7 FL (9.5-12.2); Monocytes # (A) 0.72 X 10*3/uL (0.20-1.00); Monocytes % (A) 8.1 %; NRBC Per 100 WBC 0 X 10*3/uL (0.00-0.01); Neutrophils # (A) 6.05 X 10*3/uL (1.80-7.70); Neutrophils % (A) 68.4 %; Platelet Count 210 X 10*3/uL (140-440); RBC 3.53 X 10*6/uL (4.10-5.20); RDW 13.5 % (11.5-14.5); WBC 8.86 X 10*3/uL (4.50-10.00)
[2022-11-24 11:15] LABS: BUN/Creat Ratio 8.17 Ratio (12.00-20.00); Blood Urea Nitrogen 4.9 mg/dL (9.0-27.0); Calcium 8.7 mg/dL (8.7-10.3); Carbon Dioxide 26.7 mmol/L (21.6-31.8); Chloride 103 mmol/L (96-109); Glucose 92 mg/dL (70-110); Potassium 3.9 mmol/L (3.5-5.5); Sodium 138 mmol/L (135-145)
[2022-11-25] MEDS: ACETAMINOPHEN TAB 325 MG TAB PO SCH ×2 (00:06→06:27)
[2022-11-25] MEDS: CYCLOBENZAPRINE 5 MG TAB PO PRN ×2 (00:09→07:34)
[2022-11-25] MEDS: HYDROmorphone 1 MG/ML 1 ML SYRINGE IVP PRN (04:44)
[2022-11-25] MEDS: HYDROcodone/APAP 10-325MG 1 EACH TAB PO PRN (07:34)
[2022-11-25] MEDS: ONDANSETRON 4 MG/2 ML VIAL IVP PRN (07:34)
[2022-11-25 07:44] VITALS: BP 110/72; PULSE 71; TEMP 98.1
[2022-11-25 08:23] LABS: HCT 34.3 % (34.0-46.0); HGB 11.5 gm/dL (11.4-16.0); MCH 32.4 pg (25.0-35.0); MCHC 33.5 g/dL (31.0-37.0); MCV 96.8 fL (80.0-100.0); Mean Platelet Volume 8.1; Platelet Count 185 k/uL (150-450); RBC 3.54 m/uL (3.80-5.40); RDW 13.5 % (11.5-15.5); WBC 10.1 k/uL (3.8-10.6)
[2022-11-25] MEDS: LACTATED RINGERS 1,000 ML IV SCH (09:49)
--- NOTE | 2022-11-25 10:05 | P.PN ---
Subjective Progress Note Date: 11/25/22 Principal diagnosis: 1. L5-S1 herniated nucleus pulposus 2. L5-S1 spondylosis with stenosis 3. Low back pain 4. Lower extremity radiculopathy Patient seen and examined at bedside. Patient is resting comfortable in bed. Patient reports her pain is managed on current regimen. Surgical incisions the paralumbar spine, dressings are clean dry and intact. Patient reports that she has been ambulatory every hour while awake and is tolerating activity well. Patient denies any numbness or tingling to bilateral lower extremities. Patient states she feels comfortable going home. No acute events overnight. Objective - Vital Signs Vital signs: Vital Signs Temp 98.1 F 11/25/22 06:45 Pulse 71 11/25/22 06:45 Resp 18 11/25/22 06:45 BP 110/72 11/25/22 06:45 Pulse Ox 99 11/25/22 06:45 FiO2 Intake & Output 11/24/22 11/25/22 11/25/22 18:59 06:59 18:59 Intake Total 1080 Output Total 30 Balance 1050 Intake: Oral 1080 Output: Post Void Residual 30 Other: Voiding Method Toilet # Voids 2 1 - Exam Physical Examination General: The patient is awake and alert, in no acute distress Skin: Skin is warm and dry with no obvious rashes or lesions. Surgical incisions to the paralumbar spine, dressings are clean dry and intact. Eye: Pupils are equal, round and reactive to light, extra-ocular movements are i ntact; there is normal conjunctiva bilaterally. Neck: The neck is supple, there is no tenderness and ROM intact. Cardiovascular: There is a regular rate and rhythm. No murmur, rub or gallop is appreciated. Respiratory: Lungs are clear to auscultation, respirations are non-labored, breath sounds are equal. Gastrointestinal: Soft, non-distended, non-tender abdomen. Back: There is no tenderness to palpation in the midline, paralumbar, parathoracic or buttocks region. There is no obvious deformity . Musculoskeletal: ROM limited secondary to pain and stiffness from surgical procedure. Muscle strength in all major muscle groups of bilateral upper extremities 5/5, bilateral lower extremities 5/5. Neurological: CN 2-12 intact. There are no obvious motor or sensory deficits. Movement and coordination equal and intact. Sensory exam to light touch intact C5-T1 and intact from L2-S1. Reflexes 2/4 in bilateral upper and lower extremities. Negative Hoffmans, babinski, and clonus signs. Psychiatric: Cooperative, appropriate mood & affect, normal judgment. - Labs CBC & Chem 7: 11/25/22 07:31 11/24/22 07:40 Labs: Abnormal Lab Results - Last 24 Hours (Table) 11/24/22 11/24/22 11/25/22 Range/Units 07:40 07:40 07:31 RBC 3.53 L 3.54 L (4.10-5.20) X 10*6/uL Hgb 11.3 L (12.0-15.0) d/dL Hct 33.9 L (37.2-46.3) % BUN 4.9 L (9.0-27.0) mg/dL BUN/Creatinine Ratio 8.17 L (12.00-20.00) Ratio Assessment and Plan Assessment: Postop day 2: L5-S1 minimally invasive TLIF 1. L5-S1 herniated nucleus pulposus 2. L5-S1 spondylosis with stenosis 3. Low back pain 4. Lower extremity radiculopathy Plan: -Appreciate sourcing consultant and team management. -Activity: Ambulate QID, OOB all meals, up and about, limit lifting bending twisting to less than 5 lbs. Use walker or cane if needed for stability. -Daily PT/OT, increase ambulation strength and balance. -Pain control: Adequate at this time -Meds: reviewed -GI ppx: senna, Miralax -DVT PPX: OK to restart Heparin tonight -Hygiene: Shower today. Maintain dressing clean and dry. Meticulous cleaning after BMs away from the incision site -Encourage IS 10x/hr -Dispo: Discharge home today 11/25/22 *I reviewed and discussed this case with my attending Dr. Love, whom has reviewed this chart and films and is in agreement with assessment and plan of care as outlined above. I have personally seen and examined the patient, performed the documentation and the assessment and plan as written. Number of minutes spent on the visit: 20m.
--- NOTE | 2022-11-25 10:07 | P.DS ---
Providers Date of admission: 11/24/22 Expected date of discharge: 11/25/22 Attending physician: Jacky Love DO Consults: 11/23/22 14:57 Consult Physician Routine Consulting Provider: Manuel Bowman Reason/Comments: medical management s/p L5-S1 MIS TLIF Do you want consulting provider notified?: Yes Primary care physician: Manuel Bowman Hospital Course: Hospital Course: The patient was evaluated preoperatively and found to have the diagnosis of lumbar spondylosis, HNP. They underwent appropriate preoperative care and were willing to undergo the intended procedure. They underwent a successful L5-S1 minimally invasive TLIF, were recovered appropriately and sent to the floor. While on the floor they worked with physical therapy, occupational therapy and nursing to enhance their recovery experience. Their pain was well controlled through their stay and they were started on appropriate medications, DVT ppx modalities, activity and dietary needs. Daily labs were monitored closely, and transfusions were only used when necessary. Medicine as well as other consulting services have made their input and have helped with our team approach and multidisciplinary care. PT milestones have been met and passed and they have made the recommendation of home for this patient and treating providers agree with this care path. The patient will be discharged home with appropriate medications, instructions and follow-up information and in stable condition. Patient Condition at Discharge: Good Plan - Discharge Summary Discharge Rx Participant: Yes New Discharge Prescriptions: New cefaDROXiL [Duricef] 500 mg PO Q12HR 5 Days #10 cap Cyclobenzaprine [Flexeril] 5 mg PO TID PRN #30 tablet PRN Reason: Muscle Spasm HYDROcodone/APAP 10-325MG [[place] 10-325] 1 tab PO Q6HR PRN #42 tab PRN Reason: Pain Sennosides/Docusate Sodium [Senna Plus 8.6-50 mg Softgel] 1 each PO DAILY PRN #20 capsule PRN Reason: Constipation Ondansetron [Zofran] 4 mg PO Q8HR PRN #21 tab PRN Reason: Nausea No Action lisinopriL [Zestril] 10 mg PO DAILY Nicotine 14Mg/24Hr Patch [Habitrol 14Mg/24Hr Patch] 1 patch TRANSDERM DAILY Ibuprofen [Motrin] 800 mg PO Q6H PRN PRN Reason: Pain Gabapentin [Neurontin] 300 mg PO TID PRN PRN Reason: Pain Cetirizine HCl [Zyrtec] 10 mg PO DAILY ALPRAZolam [Xanax] 0.25 mg PO TID PRN PRN Reason: Anxiety Discharge Medication List ALPRAZolam [Xanax] 0.25 mg PO TID PRN 11/16/22 [History] Cetirizine HCl [Zyrtec] 10 mg PO DAILY 11/16/22 [History] Gabapentin [Neurontin] 300 mg PO TID PRN 11/16/22 [History] Ibuprofen [Motrin] 800 mg PO Q6H PRN 11/16/22 [History] Nicotine 14Mg/24Hr Patch [Habitrol 14Mg/24Hr Patch] 1 patch TRANSDERM DAILY 11/16/22 [History] lisinopriL [Zestril] 10 mg PO DAILY 11/16/22 [History] Cyclobenzaprine [Flexeril] 5 mg PO TID PRN #30 tablet 11/24/22 [Rx] HYDROcodone/APAP 10-325MG [[place] 10-325] 1 tab PO Q6HR PRN #42 tab 11/24/22 [Rx] Sennosides/Docusate Sodium [Senna Plus 8.6-50 mg Softgel] 1 each PO DAILY PRN #20 capsule 11/24/22 [Rx] cefaDROXiL [Duricef] 500 mg PO Q12HR 5 Days #10 cap 11/24/22 [Rx] Ondansetron [Zofran] 4 mg PO Q8HR PRN #21 tab 11/25/22 [Rx] Follow up Appointment(s)/Referral(s): Jacky Love DO [Doctor of Osteopathic Medicine] - 2 Weeks Patient Instructions/Handouts: Laminectomy (DC) Activity/Diet/Wound Care/Special Instructions: Spine Discharge and Recovery Instructions Date of Surgery: 11/23/2022 Diagnosis: Lumbar spondylosis with stenosis Procedure: L5-S1 minimally invasive TLIF Medications: See medication list All medication refills should be obtained through your primary care doctor or your clinic spine surgeon. Please discuss prescription refills at your follow up appointment. Do not call the hospital for medication refills. Dressing: Leave your dressing in place for a total of 5 days post operatively. Then you may remove your dressing and leave open to air. Keep the area clean and if not able to keep area clean, then cover with sterile gauze and tape. Showering: You may shower 3 days after your procedure allowing soap and water to run over incision. Do not scrub. Do not soak. Blot dry. Follow up: Please confirm a follow up appointment with your surgeon 3 weeks post operatively. Please make an appointment to follow up with your PCP in 1-2 weeks after surgery for evaluation 3 phase, 3-week plan POST OP WEEKS 1-3 1. Lifting/carrying/pushing/pulling limited to less than 5 pounds. 2. Do not sit for longer than 15 minutes at one time. Get up and walk around. Prolonged sitting is NOT advised. If you lay down, see if you can tolerate laying down on you front (belly side) 3. Walk for periods of 15 minutes = 1 mile but no longer; do it multiple times times each day. 4. Ice your low back after activity. POST OP WEEKS 3-6 1. Lifting limited to less than 20 pounds. 2. Do not sit for longer than 30 minutes at a time. Frequently change positions. Use a sit-to stand workstation or take frequent breaks from sitting if you have returned to work. 3. Walk for 30 minutes each day. If possible, do these three or more times a day POST OP WEEKS 6+ At your 6-week appointment we will give you a physical therapy referral to focus on a core stabilization and strengthening program. You should also work on leg & buttock strengthening, hamstring & quadriceps stretching, and continue a low impact aerobic activity program such as swimming, walking, or riding a stationary bicycle. During the initial 6 weeks after your surgery, you are at the highest risk of re-injuring your spine. You should generally avoid BLTs (bending, lifting and twisting combination motions) and follow the above guidelines to reduce the chance of reinjury. You can anticipate post op appointments in our office at approximately 3 weeks and 6 weeks after your surgery. INCISION CARE: If your incision is not draining you do NOT need to cover it with a dressing. Keep your incision clean, dry and intact. In most cases, we apply skin glue, anil or sutures to the incision at the time of surgery. This will be like a crust or have the appearance of a scab and will fall off in time on its own. The stitches or anil need to be removed at 3 weeks post op appointment. You may begin to shower 3 days after surgery (this allows the glue to morton well). However, please avoid scrubbing the incision site or peeling off any of the skin glue. This will ensure optimal healing of your incision. Also, during this time avoid soaking the incision area in water - this includes swimming pools, hot tubs or baths. No ointments, lotions or oils on the incision until your surgeon allows. Leave anil, sutures or glue in place. Neurological dysfunction that comes on suddenly can also be a sign of a stroke. Below some common symptoms of a stroke are listed: B - balance difficulty such as sudden onset walking or leaning to one side - NEW E - eye problem such as sudden double vision or trouble seeing on one side - NEW F - Facial weakness or numbness on one side - NEW A - Arm or leg weakness or numbness on one side - NEW S - Slurred speech or difficulty with word finding - NEW T - Time is BRAIN! Call 911 as soon as you recognize these symptoms Diet: Consume a regular diet rich in vegetables and lean protein such as chicken or fish. You should consume in a ratio of approximately 20% fats|40% carb ohydrates|40%protein. Vegetables, sweet potatoes, brown rice or quinoa are examples of good carbohydrates. Chips, white bread, cookies and sweets/sugar are examples of bad carbohydrates. Limit your bad carbs, go wild with good carbs. 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 (1) Get Active. Physical activity can help people lose weight, control high blood pressure and cholesterol, feel emotionally better, and sleep better. (2) Control Cholesterol. Avoid a diet high in saturated fat, trans fat, & cholesterol. Limit whole milk & cream, ice cream, butter, egg yolks, processed meats (like sausage and hot dogs), and fatty meats. Choose healthy foods that are low in saturated fat, trans fat and cholesterol which include: Fruits and vegetables, fiber rich grain products (like whole grain pasta and brown rice), lean meat such as chicken, fish, nuts, seeds, and legumes. (3) Eat Better. Eat small portions. Shop at the grocery with a list and do not stray from it. Tips for a healthy diet include: Limit sodium intake to less than 1500mg daily, avoid prepackaged, processed, and fast foods, choose a diet rich in fruits, vegetables, and whole grain, high fiber foods, and limit saturated & cholesterol in your diet. (4) Manage Blood Pressure. If you have high blood pressure, you should have a cuff at home so that you can check your blood pressure regularly. Be sure you have a good cuff. An arm one is generally better than a wrist one. Bring the cuff to a doctor's appointment to validate that the measurements that your cuff are taking are accurate. Take your blood pressure twice daily when you are sitting down and relaxing. Record the numbers in a log and bring this log with you to your doctors' appointments. (5) Lose Weight if your BMI is above 25. A healthy BMI is between 19-25. To calculate Your BMI, you may use a Standard BMI Calculator on the NIH BMI website: <www.nhlbi.nih.gov/guidelines/obesity/BMI/bmicalc.htm>. Weigh oneself daily. If you are overweight, set a goal to lose weight. A pound a week loss if needed is a good target. (6) Reduce Blood Sugar. Limit foods and liquids with "added sugars." (Added sugars include sucrose, fructose, glucose, maltose, dextrose, high fructose corn syrup, corn syrup, concentrated fruit juice and honey). (7) Stop Smoking. If you smoke, quitting smoking is one of the best things that you can do for your health. Smoking increases your risk of heart attack, stroke, and peripheral vascular disease, which is a build-up of plaque in your arteries. Please discard all the cigarettes and lighters in your house. Have a plan for what you will do when you have the urge to smoke. Direct and second- hand smoke shortens your life as well as the lives of your family, friends and others around you. For your health and the health of those around you, please consider quitting! Proper Bending Body Mechanics: Maintain a wide stance with one foot slightly in front of the other. Keep your back straight. Bend utilizing the strength in your hips and knees. Do not bend at the waist. Maintain the lifted object at your waist-level close to your body. Avoid lifting weight that causes immediately pain or pain anywhere in the body afterwards. Smoking/Nicotine If there was ever one thing that you could do to increase your overall health, decrease your risk of cardiovascular problems by about 39% the second you make the choice, it is to STOP SMOKING. Your body's most instant gratification is the second you stop smoking. We have all heard the studies, read the articles but it is true, smoking is extremely bad for your overall health, and moreover it is detrimental to your bone health. Nicotine, IN ANY FORM, kills bone cells, prevents your body from healing fractures, and significantly prolongs healing after surgery. In spine surgery specifically, it increases your risk of not healing your bones to create a fusion and increases your risk of having a revision surgery due to this up to 60%. I know it is hard. I know it feels impossible. But there are ways. Take control of your life. We are here to help you through it. And when you are ready, ask us and we can direct you to help if you desire. Use the START Plan to Quit Smoking (please visit the Helpguide.org website listed below for more information): S = Set a quit date. Choose a date within the next 2 weeks, so you have enough time to prepare without losing your motivation to quit. If you mainly smoke at work, quit on the weekend, so you have a few days to adjust to the change. T = Tell family, friends, and co-workers that you plan to quit. Let your friends and family in on your plan to quit smoking and tell them you need their support and encouragement to stop. Look for a quit kyle who wants to stop smoking as well. You can help each other get through the rough times. A = Anticipate and plan for the challenges you'll face while quitting. Most people who begin smoking again do so within the first 3 months. You can help yourself make it through by preparing ahead for common challenges, such as nicotine withdrawal and cigarette cravings. R = Remove cigarettes and other tobacco products from your home, car, and work. Throw away all your cigarettes (no emergency pack!), lighters, ashtrays, and matches. Wash your clothes and freshen up anything that smells like smoke. Shampoo your car, clean your drapes and carpet, and steam your furniture. T = Talk to your doctor about getting help to quit. Your doctor can prescribe medication to help with withdrawal and suggest other alternatives. If you can't see a doctor, you can get many products over the counter at your local pharmacy or grocery store, including the nicotine patch, nicotine lozenges, and nicotine gum. Resources for Quitting Smoking: <https://www.[place].gov/documents/mdch/Quit_[place] cco_Resources_for_patients_313480_7.pdf> Supplementation: Take recommended dosages of Vitamin D and Calcium to help fortify your bones and help them to heal. See your health maintenance packet for dosages and recommended levels. DVT/VTE prophylaxis: You will be given compression stockings from the hospital. Wear these daily for the first two weeks after surgery. You may take them off at night. You may be prescribed a medication to help thin your blood. Take this as directed. If you are not prescribed this medication, early and frequent ambulation has been shown to be the best prophylaxis to deep vein thrombosis and sequelae related to this event. Discharge Disposition: HOME SELF-CARE
--- NOTE | 2022-11-29 15:27 | CONS ---
CONSULTATION CHIEF COMPLAINT: Low back pain with degenerative osteoarthritis and disk disease. HISTORY OF PRESENT ILLNESS: This lady is coming in for an elective diskectomy. REVIEW OF SYSTEMS: She has had no headaches, fever, chills, neurologic problems, chest pain, shortness of breath, abdominal pain, nausea, vomiting, melena, hematochezia, jaundice, renal failure, hematuria, frequency, urgency, dysuria, etc. Past medical history, family history, and personal and social histories are otherwise unremarkable or noncontributory. PHYSICAL EXAMINATION: VITAL SIGNS: Normal. HEAD, EARS, EYES, NOSE, AND MOUTH: Normal. CHEST: Clear. CARDIAC: Normal sinus rhythm. ABDOMEN: Soft and nontender. EXTREMITIES: Normal. NEUROLOGIC: She is intact. DIAGNOSES: She is admitted to the hospital with diagnoses: 1. Lumbosacral spine degenerative disk disease, arthritis, and herniated nucleus pulposus. RECOMMENDATIONS: None. MMODL / IJN: [id number] /
--- NOTE | 2022-11-29 15:27 | PN ---
PROGRESS NOTE DATE OF SERVICE: 11/25/2022 CHIEF COMPLAINT: Status post diskectomy. HISTORY OF PRESENT ILLNESS: This lady is doing well. She has had no nausea, vomiting, etc. PHYSICAL EXAMINATION: CHEST: Clear. CARDIAC: Normal. VITAL SIGNS: Normal. IMPRESSION: Status post lumbar diskectomy. PLAN: Probably home today or tomorrow. MMODL / IJN: [id number] /
--- NOTE | 2022-11-29 15:28 | PN ---
PROGRESS NOTE DATE OF SERVICE: 11/24/2022 CHIEF COMPLAINT: LS spine disk disease and arthritis. HISTORY OF PRESENT ILLNESS: This lady is doing well, and she is still having some pain, but is doing very nicely. PHYSICAL EXAMINATION: CHEST: Clear. CARDIAC: Normal. ABDOMEN: Soft and nontender. VITAL SIGNS: She is afebrile. IMPRESSION: Status post diskectomy for lumbosacral spine degenerative disk disease and arthritis. PLAN: Progress activity and probably home soon. MMODL / IJN: [id number] /
== END 2022-11-25 11:26 | disposition home or self-care (01) ==
LOC: OR 10:09 → 4SSUR 14:48 → OR 11-25 11:26
PROVIDERS: ATTEND Orthopaedic Surgery
DX: M48.07 Spinal stenosis, lumbosacral region (principal); M47.27 Other spondylosis with radiculopathy, lumbosacral region; M51.27 Other intervertebral disc displacement, lumbosacral region; I10 Essential (primary) hypertension; M19.90 Unspecified osteoarthritis, unspecified site; F41.9 Anxiety disorder, unspecified; F17.210 Nicotine dependence, cigarettes, uncomplicated; Z85.41 Personal history of malignant neoplasm of cervix uteri; Z98.890 Other specified postprocedural states; Z90.49 Acquired absence of other specified parts of digestive tract; Z79.899 Other long term (current) drug therapy
CPT/HCPCS: 97161; 81025; 86900; 86901; 80048; 85025; 85027; 86850; 72100; 72131; 22853; C1713; C1734; J2250; J3370; J0330; J2710; J0690 ×2; J2405 ×3; J3010; J1170 ×4; J2704; J1790; J2001; J2371; J0665

== ENCOUNTER 2022-12-06 22:00 | Emergency (ER) | payer OTHER ==
[2022-12-06 22:16] VITALS: TEMP 98.6
[2022-12-07 00:06] LABS: Basophils % (A) 0 %; Eosinophils # (A) 0.2 k/uL (0-0.7); Eosinophils % (A) 2 %; HCT 36.2 % (34.0-46.0); HGB 12.4 gm/dL (11.4-16.0); Lymphocytes # (A) 2.4 k/uL (1.0-4.8); Lymphocytes % (A) 19 %; MCHC 34.2 g/dL (31.0-37.0); MCV 96.5 fL (80.0-100.0); Mean Platelet Volume 7.2; Monocytes # (A) 0.8 k/uL (0-1.0); Monocytes % (A) 6 %; Neutrophils # (A) 9.3 k/uL (1.3-7.7); Neutrophils % (A) 72 %; RBC 3.75 m/uL (3.80-5.40); RDW 13.1 % (11.5-15.5)
[2022-12-07 00:07] LABS: Platelet Count 375 k/uL (150-450)
[2022-12-07] MEDS ORDERED: HYDROcodone/APAP 10-325MG 1 EACH TAB PO ONE (00:08)
--- NOTE | 2022-12-07 00:12 | ED ---
General Adult HPI - General Chief complaint: Back Pain/Injury Stated complaint: Back Surgery Complication Time Seen by Provider: 12/06/22 23:09 Source: patient, RN notes reviewed Mode of arrival: wheelchair Limitations: no limitations - History of Present Illness Initial comments: 47-year-old female with past medical history of chronic back pain presents the emergency department with a chief complaint of postop problem. Patient had a spinal surgery performed by Dr. Chua's and on 11/23/2022. She reports that today she woke up with increased redness and tenderness to her right sided surgical site. She also is complaining of accompanying symptoms of chills. No known fevers. She reports that she initially course of antibiotics for 2 weeks. She was provided a new antibiotic today by Dr. Love and took 1 dose prior to arrival. She denies any saddle paresthesia, loss of bowel or bladder function. - Related Data Home Medications Medication Instructions Recorded Confirmed ALPRAZolam [Xanax] 0.25 mg PO TID PRN 11/16/22 12/07/22 Cetirizine HCl [Zyrtec] 10 mg PO DAILY 11/16/22 12/07/22 Gabapentin [Neurontin] 300 mg PO TID PRN 11/16/22 12/07/22 Ibuprofen [Motrin] 800 mg PO Q6H PRN 11/16/22 11/16/22 Nicotine 14Mg/24Hr Patch [Habitrol 1 patch TRANSDERM DAILY 11/16/22 11/16/22 14Mg/24Hr Patch] lisinopriL [Zestril] 10 mg PO DAILY 11/16/22 12/07/22 Acetaminophen Tab [Tylenol Tab] 500 mg PO PRN 12/07/22 Previous Rx's Medication Instructions Recorded Cyclobenzaprine [Flexeril] 5 mg PO TID PRN #30 tablet 11/24/22 HYDROcodone/APAP 10-325MG [Gerry 1 tab PO Q6HR PRN #42 tab 11/24/22 10-325] Sennosides/Docusate Sodium [Senna 1 each PO DAILY PRN #20 capsule 11/24/22 Plus 8.6-50 mg Softgel] cefaDROXiL [Duricef] 500 mg PO Q12HR 5 Days #10 cap 11/24/22 Ondansetron [Zofran] 4 mg PO Q8HR PRN #21 tab 11/25/22 Allergies Allergy/AdvReac Type Severity Reaction Status Date / Time paroxetine [From Paxil] Allergy Hallucinati Verified 12/06/22 22:15 ons prochlorperazine Allergy Itching Verified 12/06/22 22:15 [From Compazine] Review of Systems ROS Statement: Those systems with pertinent positive or pertinent negative responses have been documented in the HPI. ROS Other: All systems not noted in ROS Statement are negative. Past Medical History Past Medical History: Cancer, Hypertension, Musculoskeletal Disorder, Osteoarthritis (OA) Additional Past Medical History / Comment(s): cervical cancer when 13 years old, allergy induced asthma, pain down right buttock & leg, migraines History of Any Multi-Drug Resistant Organisms: None Reported Past Surgical History: Cholecystectomy, Tubal Ligation Additional Past Surgical History / Comment(s): conization of cervix, hysterscopy to remove scar tissue Past Anesthesia/Blood Transfusion Reactions: No Reported Reaction Past Psychological History: Anxiety Smoking Status: Former smoker Past Alcohol Use History: Rare Past Drug Use History: Marijuana - Past Family History Mother Family Medical History: No Reported History General Exam - General Exam Comments Initial Comments: General: Alert, in no acute distress Head: atraumatic normocephalic. Eyes PERRL, EOMI intact, mucous membranes moist Respiratory: Lungs clear to auscultation bilaterally Cardiovascular: Heart rate regular rate and rhythm Abdominal: Soft without guarding or rebound Extremities: Normal inspection with full range of motion and normal capillary refill Back: Left incisional site appears well-healed, tight surgical site with surrounding erythema. It is firm. It is tender. No active drainage or discharge Neuroogic: alert and oriented 3, CN II-XII intact, able to ambulate with steady gait Skin: warm dry and intact with normal color Limitations: no limitations Course Vital Signs 12/06/22 22:11 Temperature 98.6 F Pulse Rate 100 Respiratory 20 Rate Blood Pressure 109/77 O2 Sat by Pulse 99 Oximetry Medical Decision Making - Medical Decision Making Was pt. sent in by a medical professional or institution (, PA, [employer], urgent care, hospital, or [place] health care facility...) When possible be specific @ -[No] Did you speak to anyone other than the patient for history (EMS, parent, family, police, friend...)? What history was obtained from this source @ - Did you review nursing and triage notes (agree or disagree)? Why? @ -[I reviewed and agree with nursing and triage notes] Were old charts reviewed (outside hosp., previous admission, EMS record, old EKG, old radiological studies, urgent care reports/EKG's, [place] health care facility records)? Report findings @ -[No old charts were reviewed] Differential Diagnosis (chest pain, altered mental status, abdominal pain women, abdominal pain men, vaginal bleeding, weakness, fever, dyspnea, syncope, headache, dizziness, GI bleed, back pain, seizure, CVA, palpatations, mental health, musculoskeletal)? @ -[not applicable] EKG interpreted by me (3pts min.). @ -[As above] X-rays interpreted by me (1pt min.). @ -[None done] CT interpreted by me (1pt min.). @ See below U/S interpreted by me (1pt. min.). @ -[None done] What testing was considered but not performed or refused? (CT, X-rays, U/S, labs)? Why? @ -[None] What meds were considered but not given or refused? Why? @ -[None] Did you discuss the management of the patient with other professionals (professionals i.e. , PA, [employer], lab, RT, psych nurse, social studies department chair, summer internship, teacher, custody officer, assistant case manager)? Give summary @ -[No] Was smoking cessation discussed for >3mins.? @ -[No] Was critical care preformed (if so, how long)? @ -[No] Were there social determinants of health that impacted care today? How? (Homelessness, low income, unemployed, alcoholism, drug addiction, transportation, low edu. Level, literacy, decrease access to med. care, residential, rehab)? @ -[No] Was there de-escalation of care discussed even if they declined (Discuss DNR or withdrawal of care, Hospice)? DNR status @ -[No] What co-morbidities impacted this encounter? (DM, HTN, Smoking, COPD, CAD, Cancer, CVA, ARF, Chemo, Hep., AIDS, mental health diagnosis, sleep apnea, morbid obesity)? @ -[None] Was patient admitted / discharged? Hospital course, mention meds given and route, prescriptions, significant lab abnormalities, going to OR and other pertinent info. @ -Discharged. This is a pleasant 47-year-old female who presents the emergency department with wound recheck. Patient had a thorough history and physical exam performed which revealed surgical sites that appear well healed. Right-sided surgical site reveals mild erythema mild tenderness to palpation. No active bleeding or pertinent discharge from the site. Patient able to ambul ate with steady gait without extremities. I interpreted the following laboratory and imaging studies. CT abdomen and pelvis with contrast reveals postsurgical changes that appear intact without com plication. There are small subcutaneous fluid collections which likely represent postsurgical seroma or resolving hematomas. Incidental finding of sigmoid colitis. Patient labs revealed WBC 13.0, hemoglobin 12.2 sodium 133, potassium 4.1, lactic acid is. Blood cultures are pending. I discussed results in detail the patient verbalized understanding and questions were addressed. Patient will be discharged home in stable condition. Patient verbalizes that she has an appointment with her surgeon@[phone] 00 earlier this morning. Return precautions were discussed. She is instructed to continue her antibiotics as prescribed. Case discussed with Dr. Kelly [facility] who agrees with plan. Undiagnosed new problem with uncertain prognosis? @ -[No] Drug Therapy requiring intensive monitoring for toxicity (Heparin, Nitro, Insulin, Cardizem)? @ -[No] Were any procedures done? @ -[No] Diagnosis/symptom? @ -Post-op Problem Acute, or Chronic, or Acute on Chronic? @ -Acute Uncomplicated (without systemic symptoms) or Complicated (systemic symptoms)? @ -Uncomplicated Side effects of treatment? @ -[No] Exacerbation, Progression, or Severe Exacerbation? @ -[No] Poses a threat to life or bodily function? How? (Chest pain, USA, AR, pneumonia, PE, COPD, DKA, ARF, appy, cholecystitis, CVA, Diverticulitis, Homicidal, Suicidal, threat to staff... and all critical care pts) @ -Low likelihood - Lab Data Result diagrams: 12/06/22 23:47 12/06/22 23:47 Lab Results 12/06/22 12/06/22 12/06/22 Range/Units 23:47 23:47 23:47 WBC 13.0 H (3.8-10.6) k/uL RBC 3.75 L (3.80-5.40) m/uL Hgb 12.4 (11.4-16.0) gm/dL Hct 36.2 (34.0-46.0) % MCV 96.5 (80.0-100.0) fL MCH 33.0 (25.0-35.0) pg MCHC 34.2 (31.0-37.0) g/dL RDW 13.1 (11.5-15.5) % Plt Count 375 D (150-450) k/uL MPV 7.2 Neutrophils % 72 % Lymphocytes % 19 % Monocytes % 6 % Eosinophils % 2 % Basophils % 0 % Neutrophils # 9.3 H (1.3-7.7) k/uL Lymphocytes # 2.4 (1.0-4.8) k/uL Monocytes # 0.8 (0-1.0) k/uL Eosinophils # 0.2 (0-0.7) k/uL Basophils # 0.0 (0-0.2) k/uL Sodium 133 L (137-145) mmol/L Potassium 4.1 (3.5-5.1) mmol/L Chloride 98 (98-107) mmol/L Carbon Dioxide 26 (22-30) mmol/L Anion Gap 9 mmol/L BUN 9 (7-17) mg/dL Creatinine 0.56 (0.52-1.04) mg/dL Est GFR (CKD-EPI)AfAm >90 (>60 ml/min/1.73 sqM) Est GFR (CKD-EPI)NonAf >90 (>60 ml/min/1.73 sqM) Glucose 88 (74-99) mg/dL Plasma Lactic Acid Kwame 1.2 (0.7-2.0) mmol/L Calcium 9.3 (8.4-10.2) mg/dL Total Bilirubin 0.5 (0.2-1.3) mg/dL AST 21 (14-36) U/L ALT 17 (4-34) U/L Alkaline Phosphatase 82 (38-126) U/L Total Protein 7.1 (6.3-8.2) g/dL Albumin 4.1 (3.5-5.0) g/dL Disposition Clinical Impression: Encounter for wound re-check Disposition: HOME SELF-CARE Condition: Stable Additional Instructions: Please follow-up with your appointment with Dr. Love tomorrow at 9 AM Continue antibiotics as prescribed Is patient prescribed a controlled substance at d/c from ED?: No Referrals: Manuel Bowman MD [Primary Care Provider] - 1-2 days Jacky Love DO [Family Provider] - 1-2 days Time of Disposition: 02:00
[2022-12-07 00:21] LABS: ALT 17 U/L (4-34); AST 21 U/L (14-36); African American GFR (CKD) >90 (>60 ml/min/1.73 sqM); Albumin 4.1 g/dL (3.5-5.0); Alkaline Phosphatase 82 U/L (38-126); Anion Gap 9 mmol/L; Blood Urea Nitrogen 9 mg/dL (7-17); Calcium 9.3 mg/dL (8.4-10.2); Carbon Dioxide 26 mmol/L (22-30); Chloride 98 mmol/L (98-107); Glucose 88 mg/dL (74-99); Non-African American GFR(CKD) >90 (>60 ml/min/1.73 sqM); Potassium 4.1 mmol/L (3.5-5.1); Sodium 133 mmol/L (137-145); Total Bilirubin 0.5 mg/dL (0.2-1.3); Total Protein 7.1 g/dL (6.3-8.2)
--- NOTE | 2022-12-07 01:41 | CT ---
EXAM: CT Lumbar Spine With Intravenous Contrast CLINICAL HISTORY: ITS.REASON CT Reason: post op abscess TECHNIQUE: Axial computed tomography images of the lumbar spine with intravenous contrast. CTDI is 20.8 mGy and DLP is 801.2 mGy-cm. This CT exam was performed using one or more of the following dose reduction techniques: automated exposure control, adjustment of the mA and/or kV according to patient size, and/or use of iterative reconstruction technique. COMPARISON: Comparison made to prior CT scan of the lumbar spine from November 16, 2022. FINDINGS: Vertebrae: There are 5 lumbar type vertebral bodies with a mild generalized curve to the left and normal lumbar lordosis. Patient is status post posterior interbody fusion of L5 and S1 with transpedicular screws and connecting rods in place. There is a metallic interbody fusion device in place. No acute fracture. Discs/spinal canal/neural foramina: There is a metallic intervertebral fusion device in place at L5-S1. No acute findings. No spinal canal stenosis. Soft tissues: There are small subcutaneous fluid collections at the level of L5 with overlying cutaneous surgical anil. Findings concerning for sigmoid colitis, which may be of infectious or inflammatory etiologies. IMPRESSION: Status post posterior and interbody fusion of L5 and S1 with expected postsurgical changes. No evidence of surgical hardware complication. Small subcutaneous fluid collections, which likely represent postsurgical seromas or resolving hematomas. Findings concerning for sigmoid colitis, which may be of infectious or inflammatory etiologies.
[2022-12-07 02:37] VITALS: RESP 16
[2022-12-07 02:39] VITALS: BP 108/63; PULSE 88
== END 2022-12-07 02:39 | disposition home or self-care (01) ==
LOC: EC 22:00
DX: T81.41XA Infection following a procedure, superficial incisional surgical site, initial encounter (principal); I10 Essential (primary) hypertension; F41.9 Anxiety disorder, unspecified; F12.90 Cannabis use, unspecified, uncomplicated; Z79.899 Other long term (current) drug therapy; Z90.49 Acquired absence of other specified parts of digestive tract; Z87.891 Personal history of nicotine dependence; Z98.890 Other specified postprocedural states
CPT/HCPCS: 36415; 80053; 83605; 85025; 87040; 72132; 99284; Q9967

== ENCOUNTER 2022-12-08 13:51 | Inpatient (IN) | payer OTHER ==
[2022-12-08] MEDS ORDERED: SODIUM CHLORIDE 0.9% 1,000 ML IV ONE (14:33)
[2022-12-08] MEDS ORDERED: HYDROmorphone 0.5 MG/0.5 ML SYRINGE IVP STA (14:33)
--- NOTE | 2022-12-08 14:33 | ED ---
General Adult HPI - General Chief complaint: Back Pain/Injury Stated complaint: post op comp Time Seen by Provider: 12/08/22 14:00 Source: patient, RN notes reviewed Mode of arrival: wheelchair Limitations: no limitations - History of Present Illness Initial comments: 37-year-old female with past medical history significant for recent lumbar spine surgery presents to the emergency department with a chief complaint of postop problem. Patient was seen on 2314. She reports that she did follow up with Dr. Chua's and yesterday morning who removed the anil. She reports she was instructed to return to the emergency department if her symptoms worsen. She reports worsening redness, pain, went to the site. She denies any known fevers. She has been taking her antibiotics as prescribed. - Related Data Home Medications Medication Instructions Recorded Confirmed Cetirizine HCl [Zyrtec] 10 mg PO DAILY 11/16/22 12/08/22 Gabapentin [Neurontin] 300 mg PO TID PRN 11/16/22 12/08/22 Ibuprofen [Motrin] 800 mg PO Q6H PRN 11/16/22 12/08/22 Nicotine 14Mg/24Hr Patch [Habitrol 1 patch TRANSDERM DAILY PRN 11/16/22 12/08/22 14Mg/24Hr Patch] lisinopriL [Zestril] 10 mg PO DAILY 11/16/22 12/08/22 Acetaminophen Tab [Tylenol Tab] 500 - 1,000 mg PO Q6H PRN 12/07/22 12/08/22 ALPRAZolam [Xanax] 0.5 mg PO TID PRN 12/08/22 12/08/22 Cyclobenzaprine [Flexeril] 10 mg PO TID PRN 12/08/22 12/08/22 Sennosides/Docusate Sodium [Senna 1 tab PO DAILY PRN 12/08/22 12/08/22 Plus 8.6-50 mg Softgel] Previous Rx's Medication Instructions Recorded HYDROcodone/APAP 10-325MG [Blackwell 1 tab PO Q6HR PRN #42 tab 11/24/22 10-325] cefaDROXiL [Duricef] 500 mg PO Q12HR 5 Days #10 cap 11/24/22 Ondansetron [Zofran] 4 mg PO Q8HR PRN #21 tab 11/25/22 Allergies Allergy/AdvReac Type Severity Reaction Status Date / Time Fish Containing Products Allergy Swelling Verified 12/08/22 18:18 [Fish] paroxetine [From Paxil] Allergy Hallucinati Verified 12/08/22 15:36 ons prochlorperazine Allergy Itching Verified 12/08/22 15:36 [From Compazine] Review of Systems ROS Statement: Those systems with pertinent positive or pertinent negative responses have been documented in the HPI. ROS Other: All systems not noted in ROS Statement are negative. Past Medical History Past Medical History: Cancer, Hypertension, Musculoskeletal Disorder, Osteoarthritis (OA) Additional Past Medical History / Comment(s): cervical cancer when 13 years old, allergy induced asthma, pain down right buttock & leg, migraines History of Any Multi-Drug Resistant Organisms: None Reported Past Surgical History: Cholecystectomy, Tubal Ligation Additional Past Surgical History / Comment(s): conization of cervix, hysterscopy to remove scar tissue Past Anesthesia/Blood Transfusion Reactions: No Reported Reaction Past Psychological History: Anxiety Smoking Status: Former smoker Past Alcohol Use History: Rare Past Drug Use History: Marijuana - Past Family History Mother Family Medical History: No Reported History General Exam - General Exam Comments Initial Comments: General: Alert, in no acute distress Head: atraumatic normocephalic. Eyes PERRL, EOMI intact, mucous membranes moist Respiratory: Lungs clear to auscultation bilaterally Cardiovascular: Rate regular rate and rhythm Abdominal: Soft without guarding or rebound Back: Left lower lumbar surgical site without erythema, tenderness or warmth. Right-sided lumbar surgical site with surrounding erythema and warmth it is tender to palpation. No active drainage at this time. Extremities: Normal inspection with full range of motion and normal capillary refill Neuroogic: alert and oriented 3, CN II-XII intact, able to ambulate with steady gait Skin: warm dry and intact with normal color Limitations: no limitations Course Vital Signs 12/08/22 12/08/22 12/08/22 13:53 14:30 16:10 Temperature 97.9 F Pulse Rate 115 H 79 90 Respiratory 20 18 16 Rate Blood Pressure 125/80 95/66 103/72 O2 Sat by Pulse 98 98 99 Oximetry 12/08/22 18:16 Temperature Pulse Rate 80 Respiratory 16 Rate Blood Pressure 102/77 O2 Sat by Pulse 99 Oximetry - Reevaluation(s) Reevaluation #1: 12/08/22 17:[address] Bowman who agrees and accepts the patient for admission with recommended consult to Dr. Love Medical Decision Making - Medical Decision Making Was pt. sent in by a medical professional or institution (, SOPHIE, BATCH MIXER OPERATOR, urgent care, hospital, or care home...) When possible be specific @ -[No] Did you speak to anyone other than the patient for history (EMS, parent, family, police, friend...)? What history was obtained from this source @ -[No] Did you review nursing and triage notes (agree or disagree)? Why? @ -[I reviewed and agree with nursing and triage notes] Were old charts reviewed (outside hosp., previous admission, EMS record, old E KG, old radiological studies, urgent care reports/EKG's, care home records)? Report findings @ -[No old charts were reviewed] Differential Diagnosis (chest pain, altered mental status, abdominal pain women, abdominal pain men, vaginal bleeding, weakness, fever, dyspnea, syncope, headache, dizziness, GI bleed, back pain, seizure, CVA, palpatations, mental h ealth, musculoskeletal)? @ -[not applicable] EKG interpreted by me (3pts min.). @ -[As above] X-rays interpreted by me (1pt min.). @ -[None done] CT interpreted by me (1pt min.). @ -CT was considered however it was recently done on 12/07/2022. Does not reveal any deep surgical site abscess U/S interpreted by me (1pt. min.). @ -[None done] What testing was considered but not performed or refused? (CT, X-rays, U/S, labs)? Why? @ -[None] What meds were considered but not given or refused? Why? @ -[None] Did you discuss the management of the patient with other professionals (professionals i.e. , SOPHIE, BATCH MIXER OPERATOR, lab, RT, psych nurse, social science professor, legal service specialist, teacher, light armored vehicle officer, patient case coordinator)? Give summary @ -[No] Was smoking cessation discussed for >3mins.? @ -[No] Was critical care preformed (if so, how long)? @ -[No] Were there social determinants of health that impacted care today? How? (Homelessness, low income, unemployed, alcoholism, drug addiction, transportation, low edu. Level, literacy, decrease access to med. care, senior care, rehab)? @ -[No] Was there de-escalation of care discussed even if they declined (Discuss DNR or withdrawal of care, Hospice)? DNR status @ -[No] What co-morbidities impacted this encounter? (DM, HTN, Smoking, COPD, CAD, Cancer, CVA, ARF, Chemo, Hep., AIDS, mental health diagnosis, sleep apnea, morbid obesity)? @ -[None] Was patient admitted / discharged? Hospital course, mention meds given and route, prescriptions, significant lab abnormalities, going to OR and other pertinent info. @ Admission. This is a pleasant 47-year-old female who presents the emergency department with postop problem. Patient had a thorough history and physical exam performed while the ED. Physical exam reveals right sided, erythema numbness. Patient had lab work obtained WBC 12.0. Patient agreeable with the plan for admission. Case discussed with Dr. Pang who agrees and accepts the patient for admission with consult to Dr. Chua's and. Patient started on IV Vanco. Case discussed with Dr. Watters, [facility] who agrees with plan of care Undiagnosed new problem with uncertain prognosis? @ -[No] Drug Therapy requiring intensive monitoring for toxicity (Heparin, Nitro, Insulin, Cardizem)? @ -[No] Were any procedures done? @ -[No] Diagnosis/symptom? @ -Post op problem - Luekocytosis Acute, or Chronic, or Acute on Chronic? @ -Acute Uncomplicated (without systemic symptoms) or Complicated (systemic symptoms)? @ -complicated Side effects of treatment? @ -[No] Exacerbation, Progression, or Severe Exacerbation? @ -[No] Poses a threat to life or bodily function? How? (Chest pain, USA, [place], pneumonia, PE, COPD, DKA, ARF, appy, cholecystitis, CVA, Diverticulitis, Homicidal, Suicidal, threat to staff... and all critical care pts) @ -Moderate likelihood - Lab Data Result diagrams: 12/08/22 14:51 12/08/22 14:51 Lab Results 12/08/22 12/08/22 12/08/22 Range/Units 14:51 14:51 14:51 WBC 12.0 H (3.8-10.6) k/uL RBC 3.95 (3.80-5.40) m/uL Hgb 12.7 (11.4-16.0) gm/dL Hct 37.6 (34.0-46.0) % MCV 95.1 (80.0-100.0) fL MCH 32.2 (25.0-35.0) pg MCHC 33.9 (31.0-37.0) g/dL RDW 13.1 (11.5-15.5) % Plt Count 375 (150-450) k/uL MPV 7.6 Neutrophils % 75 % Lymphocytes % 16 % Monocytes % 6 % Eosinophils % 2 % Basophils % 0 % Neutrophils # 9.0 H (1.3-7.7) k/uL Lymphocytes # 2.0 (1.0-4.8) k/uL Monocytes # 0.7 (0-1.0) k/uL Eosinophils # 0.2 (0-0.7) k/uL Basophils # 0.0 (0-0.2) k/uL Sodium 134 L (137-145) mmol/L Potassium 4.1 (3.5-5.1) mmol/L Chloride 101 (98-107) mmol/L Carbon Dioxide 26 (22-30) mmol/L Anion Gap 7 mmol/L BUN 7 (7-17) mg/dL Creatinine 0.55 (0.52-1.04) mg/dL Est GFR (CKD-EPI)AfAm >90 (>60 ml/min/1.73 sqM) Est GFR (CKD-EPI)NonAf >90 (>60 ml/min/1.73 sqM) Glucose 95 (74-99) mg/dL Plasma Lactic Acid Kwame 1.2 (0.7-2.0) mmol/L Calcium 9.4 (8.4-10.2) mg/dL Total Bilirubin 0.9 (0.2-1.3) mg/dL AST 20 (14-36) U/L ALT 15 (4-34) U/L Alkaline Phosphatase 93 (38-126) U/L Total Protein 7.0 (6.3-8.2) g/dL Albumin 4.0 (3.5-5.0) g/dL Disposition Clinical Impression: Post op infection Disposition: ADMITTED IP TO THIS HOSP Condition: Stable Time of Disposition: 15:58
[2022-12-08 15:00] LABS: Basophils % (A) 0 %; Eosinophils # (A) 0.2 k/uL (0-0.7); Eosinophils % (A) 2 %; HCT 37.6 % (34.0-46.0); HGB 12.7 gm/dL (11.4-16.0); Lymphocytes % (A) 16 %; MCH 32.2 pg (25.0-35.0); MCHC 33.9 g/dL (31.0-37.0); MCV 95.1 fL (80.0-100.0); Mean Platelet Volume 7.6; Monocytes # (A) 0.7 k/uL (0-1.0); Monocytes % (A) 6 %; Neutrophils % (A) 75 %; Platelet Count 375 k/uL (150-450); RBC 3.95 m/uL (3.80-5.40); RDW 13.1 % (11.5-15.5)
[2022-12-08 15:33] LABS: ALT 15 U/L (4-34); AST 20 U/L (14-36); African American GFR (CKD) >90 (>60 ml/min/1.73 sqM); Alkaline Phosphatase 93 U/L (38-126); Anion Gap 7 mmol/L; Blood Urea Nitrogen 7 mg/dL (7-17); Calcium 9.4 mg/dL (8.4-10.2); Carbon Dioxide 26 mmol/L (22-30); Chloride 101 mmol/L (98-107); Glucose 95 mg/dL (74-99); Non-African American GFR(CKD) >90 (>60 ml/min/1.73 sqM); Potassium 4.1 mmol/L (3.5-5.1); Sodium 134 mmol/L (137-145); Total Bilirubin 0.9 mg/dL (0.2-1.3)
[2022-12-08] MEDS ORDERED: VANCOMYCIN IV PER PHARMACY 1 EACH MISC MISCELLANE PRN (15:57)
[2022-12-08] MEDS ORDERED: VANCOMYCIN 1,000 MG in SODIUM CHLORIDE 0.9% 250 ML IVPB ONE (16:30)
[2022-12-08] MEDS ORDERED: NALOXONE 0.4 MG/ML 1 ML VIAL IV PRN (17:15)
[2022-12-08] MEDS: HYDROmorphone 0.5 MG/0.5 ML SYRINGE IVP PRN ×2 (19:50→23:18)
[2022-12-08] MEDS: SODIUM CHLORIDE 0.9% 1,000 ML IV SCH (19:55)
[2022-12-08] MEDS: VANCOMYCIN 1,000 MG in SODIUM CHLORIDE 0.9% 250 ML IVPB SCH (23:19)
[2022-12-09] MEDS: HYDROmorphone 0.5 MG/0.5 ML SYRINGE IVP PRN ×6 (03:07→20:25)
[2022-12-09 09:14] LABS: Blood Urea Nitrogen 6.5 mg/dL (9.0-27.0); Calcium 8.6 mg/dL (8.7-10.3); Carbon Dioxide 22.3 mmol/L (21.6-31.8); Chloride 102 mmol/L (96-109); Glucose 94 mg/dL (70-110); Sodium 135 mmol/L (135-145)
[2022-12-09] MEDS: SODIUM CHLORIDE 0.9% 1,000 ML IV SCH (09:36)
[2022-12-09] MEDS: VANCOMYCIN 1,000 MG in SODIUM CHLORIDE 0.9% 250 ML IVPB SCH ×3 (09:39→23:09)
[2022-12-09 09:52] LABS: Basophils # (A) 0.04 X 10*3/uL (0.00-0.10); Basophils % (A) 0.5 %; Eosinophils # (A) 0.15 X 10*3/uL (0.04-0.35); Eosinophils % (A) 1.8 %; HCT 32.5 % (37.2-46.3); Lymphocytes # (A) 1.76 X 10*3/uL (0.90-5.00); Lymphocytes % (A) 20.7 %; MCH 32.2 pg (27.0-32.0); MCHC 33.8 d/dL (32.0-37.0); Monocytes # (A) 0.84 X 10*3/uL (0.20-1.00); Monocytes % (A) 9.9 %; NRBC Per 100 WBC 0 X 10*3/uL (0.00-0.01); Neutrophils # (A) 5.68 X 10*3/uL (1.80-7.70); Neutrophils % (A) 66.5 %; Platelet Count 293 X 10*3/uL (140-440); RBC 3.42 X 10*6/uL (4.10-5.20); WBC 8.52 X 10*3/uL (4.50-10.00)
[2022-12-09] MEDS ORDERED: GABAPENTIN 300 MG CAP PO PRN (09:57)
[2022-12-09] MEDS ORDERED: SENNOSIDES-DOCUSATE SODIUM 1 EACH TAB PO PRN (09:57)
[2022-12-09] MEDS: GABAPENTIN 300 MG CAP PO SCH ×3 (10:17→20:25)
--- NOTE | 2022-12-09 11:31 | P.CNOR ---
History of Present Illness - [facility] Consult date: 12/09/22 Requesting physician: Stephanie Hua Consult reason: other (Post-Op Complication) History of present illness: History of Presenting Illness Patient is a pleasant 47-year-old female with a past medical history of chronic back pain that presents to the ER with a complaint of post op complications. Patient had a L5-S1 MIS TLIF performed by Dr. Love on 11/23/2022. Patient had follow-up at her postop appointment on 12/07/2022 and had her anil removed from her lumbar incisions. There was mild erythema noted, oral antibiotics were prescribed. Patient was instructed if symptoms increased to return to the ER. Patient states she has increase of pain, swelling, and erythema to the right surgical lumbar incision. She states she has a burning pain at the right lumbar incision that radiates to the left across her lower back. She continues to deny any numbness or tingling to the lower extremities. Patient has been admitted to Dr. Bowman for medical management. Dr. Maya has been consulted for post-op infection and failed outpatient treatment. Patient has been started on IV vancomycin. She has remained afebrile, denies chills or chest pain. Review of Systems Pertinent positives and negatives as discussed in HPI, a complete review of systems was performed and all other systems are negative. Physical Examination Inspection: Healing incisions to the paralumbar spine. Increased erythema and swelling to the right lumbar incision; scant amount of serous drainage noted from a pinhole opening at the inferior portion of the incision. Sensation: Sensation is equal, symmetric, bilaterally intact throughout the upper and lower extremities Palpation: Nontender to palpation throughout bilateral upper and lower extremities. Range of motion: Patient does have full range of motion bilateral upper and lower extremities on exam Motor: 5/5 in all major motor groups in the bilateral upper and lower extremities Special tests: Negative Homans bilaterally. Negative Megha bilaterally. Negative clonus bilaterally. Neurovascular: Radial pulse intact, 2+ bilaterally. Cap refill under 3 seconds in digits upper extremities. Assessment and Plan s/p recent L5-S1 MIS TLIF Post-op wound complication CT scan of the Lumbar spine has been ordered NPO at [place] on 12/10/22 I&D of lumbar surgical wound scheduled for Sunday12/11/22. Continue with IV vancomycin Pain management: IV Dilaudid, [place], Gabapentin, and Flexeril Activity: Ambulate as tolerated. I reviewed and discussed this case with my attending Dr. Love, whom has reviewed this chart and films and is in agreement with assessment and plan of care as outlined above. I have personally seen and examined the patient, performed the documentation and the assessment and plan as written. Number of minutes spent on the visit: 30m. Past Medical History Past Medical History: Cancer, Hypertension, Musculoskeletal Disorder, Osteoarthritis (OA) Additional Past Medical History / Comment(s): cervical cancer when 13 years old, allergy induced asthma, pain down right buttock & leg, migraines History of Any Multi-Drug Resistant Organisms: None Reported Past Surgical History: Cholecystectomy, Tubal Ligation Additional Past Surgical History / Comment(s): conization of cervix, hysterscopy to remove scar tissue Past Anesthesia/Blood Transfusion Reactions: No Reported Reaction Past Psychological History: Anxiety Smoking Status: Former smoker Past Alcohol Use History: Rare Past Drug Use History: Marijuana - Past Family History Mother Family Medical History: No Reported History Medications and Allergies Home Medications Medication Instructions Recorded Confirmed Type Cetirizine HCl [Zyrtec] 10 mg PO DAILY 11/16/22 12/08/22 History Gabapentin [Neurontin] 300 mg PO TID PRN 11/16/22 12/08/22 History Ibuprofen [Motrin] 800 mg PO Q6H PRN 11/16/22 12/08/22 History Nicotine 14Mg/24Hr Patch [Habitrol 1 patch TRANSDERM DAILY PRN 11/16/22 12/08/22 History 14Mg/24Hr Patch] lisinopriL [Zestril] 10 mg PO DAILY 11/16/22 12/08/22 History HYDROcodone/APAP 10-325MG [[place]ine 1 tab PO Q6HR PRN #42 tab 11/24/22 12/08/22 Rx 10-325] cefaDROXiL [Duricef] 500 mg PO Q12HR 5 Days #10 cap 11/24/22 12/08/22 Rx Ondansetron [Zofran] 4 mg PO Q8HR PRN #21 tab 11/25/22 12/08/22 Rx Acetaminophen Tab [Tylenol Tab] 500 - 1,000 mg PO Q6H PRN 12/07/22 12/08/22 History ALPRAZolam [Xanax] 0.5 mg PO TID PRN 12/08/22 12/08/22 History Cyclobenzaprine [Flexeril] 10 mg PO TID PRN 12/08/22 12/08/22 History Sennosides/Docusate Sodium [Senna 1 tab PO DAILY PRN 12/08/22 12/08/22 History Plus 8.6-50 mg Softgel] Allergies Allergy/AdvReac Type Severity Reaction Status Date / Time Fish Containing Products Allergy Swelling Verified 12/08/22 18:18 [Fish] paroxetine [From Paxil] Allergy Hallucinati Verified 12/08/22 15:36 ons prochlorperazine Allergy Itching Verified 12/08/22 15:36 [From Compazine] Results - Labs Labs: Abnormal Lab Results - Last 24 Hours (Table) 12/08/22 12/08/22 12/09/22 Range/Units 14:51 14:51 06:14 WBC 12.0 H (3.8-10.6) k/uL RBC 3.42 L (4.10-5.20) X 10*6/uL Hgb 11.0 L (12.0-15.0) d/dL Hct 32.5 L (37.2-46.3) % MCH 32.2 H (27.0-32.0) pg Neutrophils # 9.0 H (1.3-7.7) k/uL Sodium 134 L (137-145) mmol/L BUN (9.0-27.0) mg/dL Creatinine (0.6-1.5) mg/dL Calcium (8.7-10.3) mg/dL 12/09/22 Range/Units 06:14 WBC (3.8-10.6) k/uL RBC (4.10-5.20) X 10*6/uL Hgb (12.0-15.0) d/dL Hct (37.2-46.3) % MCH (27.0-32.0) pg Neutrophils # (1.3-7.7) k/uL Sodium (137-145) mmol/L BUN 6.5 L (9.0-27.0) mg/dL Creatinine 0.5 L (0.6-1.5) mg/dL Calcium 8.6 L (8.7-10.3) mg/dL H & H 12/08/22 12/09/22 Range/Units 14:51 06:14 Hgb 12.7 11.0 L (11.4-16.0) gm/dL Hct 37.6 32.5 L (34.0-46.0) % Result Diagrams: 12/09/22 06:14 12/09/22 06:14
--- NOTE | 2022-12-09 14:27 | CT ---
EXAMINATION TYPE: CT lumbar spine w con DATE OF EXAM: 12/09/2022 COMPARISON: 12/07/2022 HISTORY: post op lumbar sx infection CT DLP: 683.4 mGycm CONTRAST: CT scan of the lumbar is performed with IV Contrast, patient injected with 100 mL of Isovue 300. TECHNIQUE: CT of the lumbar spine is performed on a spiral scan at 3 mm thick sections. Reconstructed images are performed in the coronal and sagittal planes. FINDINGS: Alignment appears preserved. Pedicle screws and a disc spacer is in place L5-S1. No interval change i s evident. No suspicious changes are evident. Subcutaneous postsurgical changes appear stable. No abscess format ion is identified within the subcutaneous or paraspinal muscle. Small epidural abscess would be difficult to identify on this exam. No intraspinal canal abnormality readily. There are some mild disc bulge is present at L2-3, present previously. No spinal canal steno sis is present. IMPRESSION: 1. No suspicious interval change. Postsurgical changes appear stable.
[2022-12-09] MEDS ORDERED: VANCOMYCIN TROUGH DUE 1 EACH MISC MISCELLANE ONE (15:00)
[2022-12-09] MEDS ORDERED: ACETAMINOPHEN TAB 500 MG TAB PO PRN (16:03)
[2022-12-09] MEDS ORDERED: ONDANSETRON 4 MG TAB PO PRN (16:04)
[2022-12-09] MEDS ORDERED: NICOTINE 14MG/24HR PATCH TRANSDERM PRN (16:04)
[2022-12-09] MEDS: HYDROcodone/APAP 7.5-325MG 1 EACH TAB PO PRN (18:28)
[2022-12-09] MEDS: SENNOSIDES-DOCUSATE SODIUM 1 EACH TAB PO SCH (20:25)
[2022-12-09] MEDS: ALPRAZolam 0.5 MG TAB PO PRN (23:09)
--- NOTE | 2022-12-09 23:43 | P.CONS ---
History of Present Illness - Reason for Consult Consult date: 12/09/22 Post op Infection Requesting physician: Stephanie Hua - Chief Complaint Increasing pain and draiange from the lumbar incision x few days - History of Present Illness Patient is a 47-year-old female with a past medical history significant for chronic back pain in this patient who did have a L5-S1 MIS TLIF performed by Dr. Love on 11/23/2022 patient did have her anil removed on 12/07/2022 from the lumbar incision she was noticed to have mild erythema at the patient was started on oral Keflex patient now presenting to the ER concerning for increasing pain to the lumbar surgical spine patient describes the pain to be throbbing and sharp almost 10 out of 10 in severity with associated swelling redness and did have minimal drainage this morning patient denies high-grade fever did have some chills on presentation to the hospital the patient was afebrile and no fever has been recorded subsequently patient did have white count of 12,000 with a left shift creatinine has been normal CRP 7.5 patient did have a lumbar spine CT no suspicious interval change postsurgical changes appear stable patient was started on vancomycin infectious disease was consulted for further management of antibiotic therapy Review of Systems Positive point and negatives has been mentioned in the HPI, complete review of systems was performed and all other systems are negative Past Medical History Past Medical History: Cancer, Hypertension, Musculoskeletal Disorder, Osteoarthritis (OA) Additional Past Medical History / Comment(s): cervical cancer when 13 years old, allergy induced asthma, pain down right buttock & leg, migraines History of Any Multi-Drug Resistant Organisms: None Reported Past Surgical History: Cholecystectomy, Tubal Ligation Additional Past Surgical History / Comment(s): conization of cervix, hysterscopy to remove scar tissue Past Anesthesia/Blood Transfusion Reactions: No Reported Reaction Past Psychological History: Anxiety Smoking Status: Former smoker Past Alcohol Use History: Rare Past Drug Use History: Marijuana - Past Family History Mother Family Medical History: No Reported History Medications and Allergies Home Medications Medication Instructions Recorded Confirmed Type Cetirizine HCl [Zyrtec] 10 mg PO DAILY 11/16/22 12/08/22 History Gabapentin [Neurontin] 300 mg PO TID PRN 11/16/22 12/08/22 History Ibuprofen [Motrin] 800 mg PO Q6H PRN 11/16/22 12/08/22 History Nicotine 14Mg/24Hr Patch [Habitrol] 1 patch TRANSDERM DAILY PRN 11/16/22 12/08/22 History lisinopriL [Zestril] 10 mg PO DAILY 11/16/22 12/08/22 History HYDROcodone/APAP 10-325MG [[place] 1 tab PO Q6HR PRN #42 tab 11/24/22 12/08/22 Rx 10-325] Ondansetron [Zofran] 4 mg PO Q8HR PRN #21 tab 11/25/22 12/08/22 Rx Acetaminophen Tab [Tylenol] 500 - 1,000 mg PO Q6H PRN 12/07/22 12/08/22 History ALPRAZolam [Xanax] 0.5 mg PO TID PRN 12/08/22 12/08/22 History Cyclobenzaprine [Flexeril] 10 mg PO TID PRN 12/08/22 12/08/22 History Sennosides/Docusate Sodium [Senna 1 tab PO DAILY PRN 12/08/22 12/08/22 History Plus 8.6-50 mg Softgel] Cyclobenzaprine [Flexeril] 10 mg PO TID #60 tab 12/14/22 Rx DAPTOmycin [Cubicin] 350 mg IVPB Q24HR@1200 #30 each 12/14/22 Rx HYDROcodone/APAP 7.5-325MG [[place] 1 each PO Q4-6H PRN #42 tab 12/14/22 Rx 7.5] Allergies Allergy/AdvReac Type Severity Reaction Status Date / Time Fish Containing Products Allergy Swelling Verified 12/11/22 11:44 [Fish] paroxetine [From Paxil] Allergy Hallucinati Verified 12/11/22 11:44 ons prochlorperazine Allergy Itching Verified 12/11/22 11:44 [From Compazine] Physical Exam Vitals: Vital Signs Temp Pulse Pulse Resp BP BP Pulse Ox 12/09/22 13:06 97.6 F 79 18 111/75 98 12/09/22 08:10 98.1 F 84 17 115/81 100 12/09/22 01:51 98.0 F 79 15 93/60 100 12/08/22 18:43 98.0 F 85 16 113/75 100 12/08/22 18:16 80 16 102/77 99 09/08/23 16:10 90 16 103/72 99 Intake and Output 12/09/22 12/09/22 12/09/22 06:59 14:59 22:59 Other: # Voids 3 1 GENERAL DESCRIPTION: Middle-aged female lying in bed, no distress. No tachypnea or accessory muscle of respiration use. HEENT: Shows Pallor , no scleral icterus. Oral mucous membrane is dry. NECK: Trachea central, no thyromegaly. LUNGS: Unlabored breathing. Clear to auscultation anteriorly. No wheeze or crackle. HEART: S1, S2, regular rate and rhythm. ABDOMEN: Soft, no tenderness , guarding or rigidity EXTREMITIES: No edema of feet. SKIN: No rash, no masses palpable. Lumbar incision area did have area of sw elling redness induration NEUROLOGICAL: The patient is awake, alert, oriented x3, mood and affect normal. Results CBC & Chem 7: 12/12/22 06:45 12/14/22 06:45 Labs: Abnormal Lab Results - Last 24 Hours (Table) 12/08/22 12/09/22 12/09/22 Range/Units 14:51 06:14 06:14 RBC 3.42 L (4.10-5.20) X 10*6/uL Hgb 11.0 L (12.0-15.0) d/dL Hct 32.5 L (37.2-46.3) % MCH 32.2 H (27.0-32.0) pg Sodium 134 L (137-145) mmol/L BUN 6.5 L (9.0-27.0) mg/dL Creatinine 0.5 L (0.6-1.5) mg/dL Calcium 8.6 L (8.7-10.3) mg/dL C-Reactive Protein (<1.0) mg/dL 12/09/22 Range/Units 06:14 RBC (4.10-5.20) X 10*6/uL Hgb (12.0-15.0) d/dL Hct (37.2-46.3) % MCH (27.0-32.0) pg Sodium (137-145) mmol/L BUN (9.0-27.0) mg/dL Creatinine (0.6-1.5) mg/dL Calcium (8.7-10.3) mg/dL C-Reactive Protein 7.5 H (<1.0) mg/dL Assessment and Plan (1) Post op infection Status: Acute Code(s): T81.40XA - INFECTION FOLLOWING A PROCEDURE, UNSPECIFIED, INIT SNOMED Code(s): 86659315 Plan: Patient presented to hospital with increasing pain swelling and drainage from the lumbar incision in this patient who recently did have a L5-S1 posterior lateral and interbody fusion along with laminal foraminotomy neurotomy for decompression and cage placement subsequently noticed to having increasing erythema to the incision site after removal of the anil now presenting with increasing pain swelling and drainage did have a CT that was negative for any abscess concerning for surgical site infection likely from gram-positive skin gilberto failing outpatient oral Keflex 2-nursing staff has been advised to bring culture if the area started to drain 3-vancomycin pharmacy to dose with a target trough of 15 while watching kidney function and Vanco trough closely. We will follow on clinical condition and cultures to further adjust medication if needed Thank you for this consultation we will follow the patient along with you Dictation was produced using [employer] dictation software. please excuse any grammatical, word or spelling errors. Time with Patient: Greater than 30
[2022-12-10 07:32] LABS: Basophils % (A) 0 %; Eosinophils # (A) 0.2 k/uL (0-0.7); Eosinophils % (A) 3 %; HCT 31.3 % (34.0-46.0); HGB 10.7 gm/dL (11.4-16.0); Lymphocytes # (A) 1.6 k/uL (1.0-4.8); Lymphocytes % (A) 29 %; MCH 32.4 pg (25.0-35.0); MCHC 34.3 g/dL (31.0-37.0); MCV 94.4 fL (80.0-100.0); Mean Platelet Volume 8.2; Monocytes # (A) 0.4 k/uL (0-1.0); Monocytes % (A) 8 %; Neutrophils # (A) 3.2 k/uL (1.3-7.7); Neutrophils % (A) 57 %; Platelet Count 326 k/uL (150-450); RBC 3.32 m/uL (3.80-5.40); RDW 13.3 % (11.5-15.5); WBC 5.5 k/uL (3.8-10.6)
[2022-12-10] MEDS: CYCLOBENZAPRINE 10 MG TAB PO PRN ×2 (07:52→13:37)
[2022-12-10] MEDS: VANCOMYCIN 1,000 MG in SODIUM CHLORIDE 0.9% 250 ML IVPB SCH ×3 (07:52→22:43)
[2022-12-10] MEDS: lisinopriL 10 MG TAB PO SCH (07:53)
[2022-12-10] MEDS: LORATADINE 10 MG TAB PO SCH (07:53)
[2022-12-10] MEDS: GABAPENTIN 300 MG CAP PO SCH ×3 (07:53→20:01)
[2022-12-10] MEDS: SODIUM CHLORIDE 0.9% 1,000 ML IV SCH (07:53)
[2022-12-10 08:05] LABS: ALT 11 U/L (4-34); AST 16 U/L (14-36); African American GFR (CKD) >90 (>60 ml/min/1.73 sqM); Albumin 3.2 g/dL (3.5-5.0); Albumin/Globulin Ratio 1.3; Alkaline Phosphatase 79 U/L (38-126); Anion Gap 6 mmol/L; Blood Urea Nitrogen 6 mg/dL (7-17); Calcium 8.6 mg/dL (8.4-10.2); Carbon Dioxide 24 mmol/L (22-30); Chloride 105 mmol/L (98-107); Globulin 2.5 g/dL; Glucose 87 mg/dL (74-99); Non-African American GFR(CKD) >90 (>60 ml/min/1.73 sqM); Potassium 4.1 mmol/L (3.5-5.1); Sodium 135 mmol/L (137-145); Total Bilirubin 0.5 mg/dL (0.2-1.3); Total Protein 5.7 g/dL (6.3-8.2)
[2022-12-10] MEDS: HYDROmorphone 0.5 MG/0.5 ML SYRINGE IVP PRN ×4 (11:01→23:21)
--- NOTE | 2022-12-10 12:21 | P.PN ---
Subjective Progress Note Date: 12/10/22 Principal diagnosis: Post-Op Complication Patient seen and examined this morning. Patient is sitting upright in bed. She reports her pain is managed on current regimen. Right surgical incision of the paralumbar spine continues to be swollen, slightly improved erythema and now has a small amount of active serous drainage. Wound culture has been sent on 12/09/22. Left paralumbar incision is healing well, no active drainage or redness. Patient states her pain has decreased and is able to be more active without pain and pressure in her back. She does reports a mild shooting pain into her right lower extremity with increased activity. No acute concerns at this time. Patient continues on IV vancomycin, remains afebrile and denies fever/chills. Pateint is on schedule for possible I&D tomorrow 12/11/22 of right paralumbar incision. Objective - Vital Signs Vital signs: Vital Signs Temp 97.9 F 12/10/22 07:48 Pulse 81 12/10/22 07:48 Resp 17 12/10/22 07:48 BP 110/74 12/10/22 07:48 Pulse Ox 100 12/10/22 07:48 FiO2 Intake & Output 12/09/22 12/10/22 12/10/22 18:59 06:59 18:59 Other: # Voids 1 3 1 - Exam Inspection: Healing incisions to the paralumbar spine. Increased erythema and swelling to the right lumbar incision; small amount of serous drainage noted from an opening at the inferior portion of the incision. Sensation: Sensation is equal, symmetric, bilaterally intact throughout the upper and lower extremities Palpation: Nontender to palpation throughout bilateral upper and lower extremities. Range of motion: Patient does have full range of motion bilateral upper and lower extremities on exam Motor: 5/5 in all major motor groups in the bilateral upper and lower extremities Special tests: Negative Homans bilaterally. Negative Megha bilaterally. Negative clonus bilaterally. Neurovascular: Radial pulse intact, 2+ bilaterally. Cap refill under 3 seconds in digits upper extremities. - Labs CBC & Chem 7: 12/10/22 06:11 12/10/22 06:11 Labs: Abnormal Lab Results - Last 24 Hours (Table) 12/09/22 12/10/22 12/10/22 Range/Units 06:14 06:11 06:11 RBC 3.32 L (3.80-5.40) m/uL Hgb 10.7 L (11.4-16.0) gm/dL Hct 31.3 L (34.0-46.0) % Sodium 135 L (137-145) mmol/L BUN 6 L (7-17) mg/dL Creatinine 0.48 L (0.52-1.04) mg/dL C-Reactive Protein 7.5 H (<1.0) mg/dL Total Protein 5.7 L (6.3-8.2) g/dL Albumin 3.2 L (3.5-5.0) g/dL Assessment and Plan Assessment: s/p recent L5-S1 MIS TLIF Post-op wound complication, cellulitis Plan: CT of the lumbar spine taken on 12/09/22 demonstrates no suspicious changes. Subcutaneous postsurgical changes appear stable. No abscess formation is identified within the subcutaneous or paraspinal muscle. NPO at [place] on 12/10/22 I&D of lumbar surgical wound scheduled for Sunday12/11/22. Wound Cultures pending, ID recommendations Continue with IV vancomycin Pain management: IV Dilaudid, [place], Gabapentin, and Flexeril Activity: Ambulate as tolerated. I reviewed and discussed this case with my attending Dr. Love, whom has reviewed this chart and films and is in agreement with assessment and plan of care as outlined above. I have personally seen and examined the patient, performed the documentation and the assessment and plan as written. Number of minutes spent on the visit: 30m.
--- NOTE | 2022-12-10 18:10 | P.PN ---
Subjective Progress Note Date: 12/10/22 Principal diagnosis: Lumbar surgical site infection Patient is a 47-year-old female with a past medical history significant for chronic back pain in this patient who did have a L5-S1 MIS TLIF performed by Dr. Love on 11/23/2022 patient did have her anil removed on 12/07/2022 , subsequent the patient developing increasing pain and discomfort to the surgical site and some drainage failing outpatient oral Keflex. Patient did have CT that was negative for any fluid collection. On today's evaluation that is 12/10/2022, the patient continues to be afebrile, the patient is breathing comfortably and denies any shortness of breath no chest pain or cough, the patient denies having any nausea and vomiting no abdominal pain and no diarrhea, the patient lower back pain slightly decreased did have some drainage which was cultured. The patient did have white, 5.5, creatinine 0.48, cultures currently pending Objective - Vital Signs Vital signs: Vital Signs Temp 97.9 F 12/10/22 07:48 Pulse 81 12/10/22 07:48 Resp 17 12/10/22 07:48 BP 110/74 12/10/22 07:48 Pulse Ox 100 12/10/22 07:48 FiO2 Intake & Output 12/09/22 12/10/22 12/10/22 18:59 06:59 18:59 Other: # Voids 1 3 1 - Exam GENERAL DESCRIPTION: Middle-age female up in bed in no distress RESPIRATORY SYSTEM: Unlabored breathing , decreased breath sounds at bases HEART: S1 S2 regular rate and rhythm , ABDOMEN: Soft , no tenderness Lower back especially right-sided has some erythema no drainage was noticed - Labs CBC & Chem 7: 12/10/22 06:11 12/10/22 06:11 Labs: Abnormal Lab Results - Last 24 Hours (Table) 12/09/22 12/10/22 12/10/22 Range/Units 06:14 06:11 06:11 RBC 3.32 L (3.80-5.40) m/uL Hgb 10.7 L (11.4-16.0) gm/dL Hct 31.3 L (34.0-46.0) % Sodium 135 L (137-145) mmol/L BUN 6 L (7-17) mg/dL Creatinine 0.48 L (0.52-1.04) mg/dL C-Reactive Protein 7.5 H (<1.0) mg/dL Total Protein 5.7 L (6.3-8.2) g/dL Albumin 3.2 L (3.5-5.0) g/dL Assessment and Plan (1) Post op infection Current Visit: Yes Status: Acute Code(s): T81.40XA - INFECTION FOLLOWING A PROCEDURE, UNSPECIFIED, INIT SNOMED Code(s): 63387054 Plan: Patient presented to hospital with increasing pain swelling and drainage from the lumbar incision in this patient who recently did have a L5-S1 posterior lateral and interbody fusion along with laminal foraminotomy neurotomy for decompression and cage placement subsequently noticed to having increasing erythema to the incision site after removal of the anil now presenting with increasing pain swelling and drainage did have a CT that was negative for any abscess concerning for surgical site infection likely from gram-positive skin gilberto failing outpatient oral Keflex 2Patient did have some drainage yesterday and culture has been obtained, patient apparently scheduled for surgical washout tomorrow per the nursing staff 3-patient to continue with vancomycin pharmacy to dose , with a discharge antibiotics on the basis of clinical response and culture Dictation was produced using i[employer] dictation software. please excuse any grammatical, word or spelling errors. Time with Patient: Less than 30
[2022-12-10] MEDS: SENNOSIDES-DOCUSATE SODIUM 1 EACH TAB PO SCH (20:01)
[2022-12-10] MEDS: ALPRAZolam 0.5 MG TAB PO PRN (22:43)
[2022-12-11 07:13] LABS: Basophils % (A) 0 %; Eosinophils # (A) 0.2 k/uL (0-0.7); Eosinophils % (A) 5 %; HCT 34.2 % (34.0-46.0); HGB 11.5 gm/dL (11.4-16.0); Lymphocytes # (A) 1.5 k/uL (1.0-4.8); Lymphocytes % (A) 32 %; MCH 32.2 pg (25.0-35.0); MCHC 33.5 g/dL (31.0-37.0); MCV 96.1 fL (80.0-100.0); Mean Platelet Volume 7.4; Monocytes # (A) 0.4 k/uL (0-1.0); Monocytes % (A) 8 %; Neutrophils # (A) 2.5 k/uL (1.3-7.7); Neutrophils % (A) 53 %; Platelet Count 359 k/uL (150-450); RBC 3.56 m/uL (3.80-5.40); RDW 12.8 % (11.5-15.5); WBC 4.6 k/uL (3.8-10.6)
[2022-12-11 07:27] LABS: African American GFR (CKD) >90 (>60 ml/min/1.73 sqM); Non-African American GFR(CKD) >90 (>60 ml/min/1.73 sqM)
[2022-12-11 07:51] LABS: African American GFR (CKD) >90 (>60 ml/min/1.73 sqM); Anion Gap 6 mmol/L; Blood Urea Nitrogen 10 mg/dL (7-17); Carbon Dioxide 23 mmol/L (22-30); Chloride 107 mmol/L (98-107); Glucose 96 mg/dL (74-99); Non-African American GFR(CKD) >90 (>60 ml/min/1.73 sqM); Sodium 136 mmol/L (137-145)
[2022-12-11] MEDS: lisinopriL 10 MG TAB PO SCH (08:07)
[2022-12-11] MEDS: VANCOMYCIN 1,000 MG in SODIUM CHLORIDE 0.9% 250 ML IVPB SCH ×3 (08:09→23:53)
[2022-12-11] MEDS: LORATADINE 10 MG TAB PO SCH (08:09)
[2022-12-11] MEDS: GABAPENTIN 300 MG CAP PO SCH ×3 (08:09→20:50)
[2022-12-11] MEDS: HYDROmorphone 0.5 MG/0.5 ML SYRINGE IVP PRN ×3 (08:13→19:00)
[2022-12-11] MEDS ORDERED: LACTATED RINGERS 1,000 ML IV ONE (11:42)
[2022-12-11] MEDS ORDERED: SUCCINYLCHOLINE CHLORIDE 200 MG/10 ML VIAL IV ONE (12:09)
[2022-12-11] MEDS ORDERED: MIDAZOLAM 2 MG/2 ML VIAL ONE (12:09)
[2022-12-11] MEDS ORDERED: LIDOCAINE 2% INJ 20 MG/ML (2 ML VIAL) ONE (12:09)
[2022-12-11] MEDS ORDERED: PROPOFOL 10 MG/ML 20 ML VIAL IV ONE (12:09)
[2022-12-11] MEDS ORDERED: fentaNYL (PF) 50 MCG/ML 2 ML AMP ONE (12:09)
[2022-12-11] MEDS ORDERED: GENTAMICIN 260 MG in SODIUM CHLORIDE 0.9% 100 ML IVPB ONE (12:25)
--- NOTE | 2022-12-11 12:27 | P.PN ---
Subjective Progress Note Date: 12/11/22 Principal diagnosis: Lumbar surgical site infection Patient is a 47-year-old female with a past medical history significant for chronic back pain in this patient who did have a L5-S1 MIS TLIF performed by Dr. Love on 11/23/2022 patient did have her anil removed on 12/07/2022 , subsequent the patient developing increasing pain and discomfort to the surgical site and some drainage failing outpatient oral Keflex. Patient did have CT that was negative for any fluid collection. On today's evaluation that is 12/11/2022, the patient remains to be afebrile, the patient is breathing comfortably , the patient denies having any chest pain or cough, the patient denies nausea and vomiting no abdominal pain and no diarrhea, the patient lower back pain has slightly decreased in intensity and did have some drainage The patient did have white count is 4.6eatinine 0.45, culture currently growing MRSA Objective - Vital Signs Vital signs: Vital Signs Temp 97.5 F L 12/11/22 11:58 Pulse 67 12/11/22 11:58 Resp 16 12/11/22 11:58 BP 134/75 12/11/22 11:58 Pulse Ox 100 12/11/22 11:58 FiO2 Intake & Output 12/10/22 12/11/22 12/11/22 18:59 06:59 18:59 Intake Total 100 Balance 100 Intake: IV 100 Other: # Voids 1 3 # Bowel Movements 1 - Exam GENERAL DESCRIPTION: Middle-age female up in bed in no distress RESPIRATORY SYSTEM: Unlabored breathing , decreased breath sounds at bases HEART: S1 S2 regular rate and rhythm , ABDOMEN: Soft , no tenderness Lower back especially right-sided has some erythema no drainage was noticed - Labs CBC & Chem 7: 12/11/22 06:55 12/11/22 06:55 Labs: Abnormal Lab Results - Last 24 Hours (Table) 12/09/22 12/11/22 12/11/22 Range/Units 06:14 06:55 06:55 RBC 3.56 L (3.80-5.40) m/uL ESR 47 H (0-20) mm/Hr Sodium (137-145) mmol/L Creatinine 0.46 L (0.52-1.04) mg/dL 12/11/22 Range/Units 06:55 RBC (3.80-5.40) m/uL ESR (0-20) mm/Hr Sodium 136 L (137-145) mmol/L Creatinine 0.45 L (0.52-1.04) mg/dL Microbiology - Last 24 Hours (Table) 12/09/22 16:50 Gram Stain - Preliminary Back Wound Culture - Preliminary Presumptive MRSA Assessment and Plan (1) Post op infection Current Visit: Yes Status: Acute Code(s): T81.40XA - INFECTION FOLLOWING A PROCEDURE, UNSPECIFIED, INIT SNOMED Code(s): 36740324 Plan: Patient presented to hospital with increasing pain swelling and drainage from the lumbar incision in this patient who recently did have a L5-S1 posterior lateral and interbody fusion along with laminal foraminotomy neurotomy for decompression and cage placement subsequently noticed to having increasing erythema to the incision site after removal of the anil now presenting with increasing pain swelling and drainage did have a CT that was negative for any abscess concerning for surgical site infection likely from gram-positive skin gilberto failing outpatient oral Keflex 2Patient did have some drainage which is growing MRSA, patient is scheduled for surgical washout this afternoon 3-patient to continue with vancomycin pharmacy to dose will likely need IV antibiotic on discharge Dictation was produced using [employer] dictation software. please excuse any grammatical, word or spelling errors. Time with Patient: Less than 30
[2022-12-11] MEDS ORDERED: ceFAZolin 3,000 MG in SODIUM CHLORIDE 0.9% IRRIGATIO 3,000 ML IRRIGATION ONE (12:50)
[2022-12-11] MEDS ORDERED: GENTAMICIN 80 MG in SODIUM CHLORIDE 0.9% IRRIGATIO 3,000 ML IRRIGATION ONE (12:50)
[2022-12-11] MEDS ORDERED: VANCOMYCIN 1,000 MG VIAL MISCELLANE ONE (12:53)
--- NOTE | 2022-12-11 13:44 | P.PN ---
Progress Note - Text Progress Note Date: 12/11/22 Spine Surgery Clinical and Risk Review Mendy Bates is a 47-year-old female presenting for evaluation of lumbar wound drainage and pain. It was my pleasure to have seen and examined Mendy Bates. In our visit today we have had a chance to go over subjective complaints, physical examination findings and treatments including the natural course history without intervention and various interventional options. The patients imaging demonstrates fluid collection superficially over the left sided minimally invasive incision. On physical exam, Mendy Bates demonstrates wound drainage or erythema and fluctuance around the right-sided lumbar MIS wound. I have explained to the patient that as their condition progresses it will cause further neurological deficits and eventual paralysis. Based on the patients imaging, physical exam, and the rapid progression and disabling nature of their symptoms, at this time I recommend surgery in the form or a: lumbar wound irrigation debridement. I discussed the risk and benefits of this procedure at length with Mendy Bates. The patient and agreed to considered pursuing the procedure abovementioned. Prior to surgery, she should follow up with her PCP (Cardio, ID, IM etc) for clearance. Questions were invited and answered, and the patient wishes to proceed as outlined below. Currently, I am recommendin. lumbar wound irrigation and debridement 2. Follow up with PCP for surgical clearance 3. Review of surgical risks and benefits as well as an educational packet on the proposed surgical procedure. Risks: All surgical procedures come with inherent risks, including those related to positioning, anesthesia, intraoperative findings, and postoperative complications. It is important to understand that surgery does not come with any guarantee of a successful outcome as complications and adverse events are always possible. The patient was given a handout in office today discussing the surgical pr ocedure and risks associated with the intervention, both of which were discussed with the patient. These risks include but are not limited to the following: * Experiencing same, different or even worse symptoms in back, neck, arms, or legs compared to before surgery. * Requiring further surgery or other forms of treatment presently or at some time in the future at same or other levels of the intended spine surgery. * On an extreme but fortunately relatively rare basis severe complication such as blindness, stroke, heart attack, temporary and/or permanent nerve injury, paralysis, coma, or may occur, sometimes without known explanation. * Surgical complications may include but are not limited to risk of infection, fluid accumulation in the surgical dissection site, including a seroma or hematoma, that requires additional surgery, wound drainage, bleeding, new numbness or weakness, vision changes/loss, spinal fluid leakage, non-healing and/or infected incision, headaches, difficulty or inability to swallow, hoarseness, hemopneumothorax, pneumothorax, impotence, retrograde ejaculation, vaginal dryness; injury to nerves, spinal cord, blood vessels, lymphatics or other vital organs (i.e., bowel injury, injury to the great vessels); heterotopic bone formation; complications related to the hardware such as screws, rods, cages including misplaced hardware, device failure, instrumentation at the wrong spine level, hardware fracture/breakage, or hardware loosening; vertebral failure of the spinal column above or below the newly placed hardware; retained surgical instrumentations or devices and the need for further surgery. * Medical risks of the planned spine surgery include but are not limited to generalized Infections to the whole body or local areas outside of the surgical site (sepsis), heart attack, bleeding, anaphylaxis, meningitis, seizure, epilepsy, hearing loss, burn bajwa, laceration of the head or other areas of the body, bruising, hypersensitivity of the skin, bladder over distension; allergic reaction; shoulder injury related to positioning; fat, blood and air clots to other areas of the body like heart, lungs, brain; failure of internal organs such as lungs, kidneys, liver and excessive bleeding. If blood transfusions are necessary, note that transfusions may cause intolerance reactions such as anaphylaxis or other complex reactions. * Despite best efforts, the results of spine surgery might not heal in terms of bone, soft tissues such as skin, fascia, ligaments, and joints. Additionally, in order to achieve best possible results, spine surgery may be carried out beyond the initially planned levels and involve decompression, fusion including insertion of hardware at levels other than the original intended area of surgical interest change some portions of the procedure in order to ensure the best possible outcomes. * With spine surgery and spinal fusion, there are different off label uses of instrumentation (devices, implants and hardware) as well as biological substances (bone morphogenic proteins, demineralized bone matrix) as well as using extra bone from allograft sources (i.e. cadaver bone) or autograft (iliac crest bone, ribs, or the spine itself). The patient has been given information about these practices and their inherent risks and benefits. The patient has had a chance to review all the listed information, has been given print outs detailing this information, and has had all his/her questions answered to their satisfaction. It was my pleasure to have seen and examined Mendy Bates. In our visit today we have had a chance to go over my understanding of our patient's current condition, the natural course history without intervention and various interventional options. Questions were invited and answered, and the patient wishes to proceed as outlined above. I have seen and examined the patient for 25 minutes and we have spent more than 50% of the time in repeat and detailed counseling about the patient's condition, its natural course history with out and as much as can be predicted with surgery and re-review of various surgical treatment options. In conclusion, Mendy Bates and her requested we proceed with the above suggested surgery and are willing to accept risks and limitations of the suggested surgery as nature of the disease process and our best attempts at treatment for the condition. Thank you again for allowing us to be part of your patient's care. Please don't hesitate to contact me if you have any further questions. Signed and authenticated by: [facility] [address], [address] [address]
[2022-12-11] MEDS ORDERED: HYDROmorphone 0.5 MG/0.5 ML SYRINGE IVP ONE ×2 (13:45→13:53)
[2022-12-11] MEDS: CYCLOBENZAPRINE 10 MG TAB PO PRN ×2 (15:10→23:53)
[2022-12-11] MEDS: HYDROcodone/APAP 7.5-325MG 1 EACH TAB PO PRN ×2 (15:10→20:50)
[2022-12-11] MEDS: IBUPROFEN 800 MG TAB PO PRN (18:25)
[2022-12-11] MEDS: SODIUM CHLORIDE 0.9% 1,000 ML IV SCH (19:45)
[2022-12-11] MEDS: SENNOSIDES-DOCUSATE SODIUM 1 EACH TAB PO SCH (20:50)
[2022-12-11] MEDS: ALPRAZolam 0.5 MG TAB PO PRN (23:53)
[2022-12-12] MEDS: HYDROmorphone 0.5 MG/0.5 ML SYRINGE IVP PRN ×4 (06:55→16:51)
[2022-12-12 07:19] LABS: Basophils % (A) 0 %; Eosinophils # (A) 0.2 k/uL (0-0.7); Eosinophils % (A) 5 %; HCT 33.3 % (34.0-46.0); HGB 11.2 gm/dL (11.4-16.0); Lymphocytes # (A) 1.5 k/uL (1.0-4.8); Lymphocytes % (A) 33 %; MCH 32.6 pg (25.0-35.0); MCHC 33.6 g/dL (31.0-37.0); MCV 97.2 fL (80.0-100.0); Mean Platelet Volume 7.5; Monocytes # (A) 0.4 k/uL (0-1.0); Monocytes % (A) 8 %; Neutrophils # (A) 2.3 k/uL (1.3-7.7); Neutrophils % (A) 52 %; Platelet Count 327 k/uL (150-450); RBC 3.42 m/uL (3.80-5.40); RDW 12.9 % (11.5-15.5); WBC 4.5 k/uL (3.8-10.6)
[2022-12-12 07:35] LABS: African American GFR (CKD) >90 (>60 ml/min/1.73 sqM); Anion Gap 6 mmol/L; Blood Urea Nitrogen 11 mg/dL (7-17); Calcium 8.4 mg/dL (8.4-10.2); Carbon Dioxide 23 mmol/L (22-30); Chloride 108 mmol/L (98-107); Glucose 115 mg/dL (74-99); Non-African American GFR(CKD) >90 (>60 ml/min/1.73 sqM); Potassium 3.8 mmol/L (3.5-5.1); Sodium 137 mmol/L (137-145)
[2022-12-12] MEDS: lisinopriL 10 MG TAB PO SCH (09:38)
[2022-12-12] MEDS: HYDROcodone/APAP 7.5-325MG 1 EACH TAB PO PRN ×2 (09:38→21:21)
[2022-12-12] MEDS: LORATADINE 10 MG TAB PO SCH (09:38)
[2022-12-12] MEDS: CYCLOBENZAPRINE 10 MG TAB PO PRN (09:38)
[2022-12-12] MEDS: GABAPENTIN 300 MG CAP PO SCH ×3 (09:38→21:21)
[2022-12-12] MEDS: VANCOMYCIN 1,000 MG in SODIUM CHLORIDE 0.9% 250 ML IVPB SCH ×2 (09:39→16:34)
--- NOTE | 2022-12-12 10:32 | P.PN ---
Subjective Progress Note Date: 12/12/22 Principal diagnosis: Post-Op Complication Lumbar wound drainage and pain Patient seen and examined this morning. Patient is resting comfortably in bed. She reports her pain is managed on current regimen. Patient does express that she had turned in bed and felt an immediate burning sensation into her right buttock, she was anxious that she might have done something to her low back. Emotional support provided and informed patient that she may have occasional radicular symptoms due to procedure. Surgical incision to the right lumbar has mild shadowing noted, MARY drain present with minimal output. Informed patient that we may remove drain later today pending output. No acute concerns at this time. Patient continues on IV vancomycin, remains afebrile and denies fever/chills. Objective - Vital Signs Vital signs: Vital Signs Temp 97.9 F 12/12/22 02:59 Pulse 66 12/12/22 02:59 Resp 17 12/12/22 02:59 BP 107/68 12/12/22 02:59 Pulse Ox 98 12/12/22 02:59 FiO2 Intake & Output 12/11/22 12/11/22 12/12/22 06:59 18:59 06:59 Intake Total 1482 Output Total 10 Balance 1472 Weight 58.967 kg Intake: IV 402 Oral 1080 Output: Estimated Blood Loss 10 Other: Voiding Method Toilet # Voids 3 3 - Exam Inspection: Healing incision to the left lumbar spine, Right lumbar spine incision with MARY drain intact. Sensation: Sensation is equal, symmetric, bilaterally intact throughout the upper and lower extremities Palpation: Nontender to palpation throughout bilateral upper and lower extremities. Range of motion: Patient does have full range of motion bilateral upper and lower extremities on exam Motor: 5/5 in all major motor groups in the bilateral upper and lower extremities Special tests: Negative Homans bilaterally. Negative Megha bilaterally. Negative clonus bilaterally. Neurovascular: Radial pulse intact, 2+ bilaterally. Cap refill under 3 seconds in digits upper extremities. - Labs CBC & Chem 7: 12/12/22 06:45 12/12/22 06:45 Labs: Abnormal Lab Results - Last 24 Hours (Table) 12/11/22 12/11/22 12/11/22 Range/Units 06:55 06:55 06:55 RBC 3.56 L (3.80-5.40) m/uL Sodium 136 L (137-145) mmol/L Creatinine 0.46 L 0.45 L (0.52-1.04) mg/dL Microbiology - Last 24 Hours (Table) 12/09/22 16:50 Anaerobic Culture - Preliminary Back 12/09/22 16:50 Gram Stain - Final Back Wound Culture - Final Methicillin resist S. aureus Assessment and Plan Assessment: Postop day 1: Irrigation and debridement of lumbar wound Lumbar wound drainage and pain s/p recent L5-S1 MIS TLIF Plan: -Appreciate recruiting consultant and team management. -Activity: Ambulate QID, OOB all meals, up and about, limit lifting bending twisting to less than 5 lbs. Use walker or cane if needed for stability. -Daily PT/OT, increase ambulation strength and balance. -Pain control: Adequate at this time -Meds: reviewed -GI ppx: senna, Miralax -DVT PPX: OK to restart Heparin tonight -Hygiene: Shower today. Maintain dressing clean and dry. Meticulous cleaning after BMs away from the incision site -Drains: Maintain for now. Continue to monitor and record output q shift. -Encourage IS 10x/hr -Dispo: Anticipate discharge home in the next 48-72hrs *I reviewed and discussed this case with my attending Dr. Love, whom has reviewed this chart and films and is in agreement with assessment and plan of care as outlined above. I have personally seen and examined the patient, performed the documentation and the assessment and plan as written. Number of minutes spent on the visit: 20m.
--- NOTE | 2022-12-12 12:28 | PN ---
PROGRESS NOTE CHIEF COMPLAINT: Postop infection of the LS spine. HISTORY OF PRESENT ILLNESS: This lady is doing well. Cultures have grown out MRSA. REVIEW OF SYSTEMS: She is not having any fever, chills, chest pain, shortness of breath, etc. PHYSICAL EXAMINATION: CHEST: Clear. CARDIAC: Normal. ABDOMEN: Soft, nontender. IMPRESSION: MRSA secondary infection following LS spine fusion. PLAN: Continue with IV fluids and antibiotics, to make arrangements for outpatient antibiotic management. MMODL / IJN: [id number] /
[2022-12-12] MEDS: ALPRAZolam 0.5 MG TAB PO PRN (14:51)
[2022-12-12] MEDS: IBUPROFEN 800 MG TAB PO PRN (14:52)
[2022-12-12] MEDS: SODIUM CHLORIDE 0.9% 1,000 ML IV SCH (16:37)
--- NOTE | 2022-12-12 17:13 | P.PN ---
Subjective Progress Note Date: 12/12/22 Principal diagnosis: Lumbar surgical site infection Patient is a 47-year-old female with a past medical history significant for chronic back pain in this patient who did have a L5-S1 MIS TLIF performed by Dr. Love on 11/23/2022 patient did have her anil removed on 12/07/2022 , subsequent the patient developing increasing pain and discomfort to the surgical site and some drainage failing outpatient oral Keflex. Patient did have CT that was negative for any fluid collection. The patient is status post I&D of the lumbar wound by orthopedic surgery on 12/11/2022 On today's evaluation that is 12/12/2022, the patient denies any fever or any chills, the patient is breathing comfortably , the patient denies chest pain or cough, the patient denies nausea and vomiting no abdominal pain and no diarrhea has been reported, the patient lower back pain has slightly decreased in intensity The patient did have white count is 4.5, creatinine 0.46 local cultures growing MRSA Objective - Vital Signs Vital signs: Vital Signs Temp 98.4 F 12/12/22 13:50 Pulse 98 12/12/22 13:50 Resp 14 12/12/22 13:50 BP 125/82 12/12/22 13:50 Pulse Ox 98 12/12/22 13:50 FiO2 Intake & Output 12/11/22 12/12/22 12/12/22 18:59 06:59 18:59 Intake Total 1482 Output Total 10 Balance 1472 Weight 58.967 kg Intake: IV 402 Oral 1080 Output: Estimated Blood Loss 10 Other: Voiding Method Toilet # Voids 3 3 - Exam GENERAL DESCRIPTION: Middle-age female up in bed in no distress RESPIRATORY SYSTEM: Unlabored breathing , decreased breath sounds at bases HEART: S1 S2 regular rate and rhythm , ABDOMEN: Soft , no tenderness Lower back especially right-sided has some erythema no drainage was noticed - Labs CBC & Chem 7: 12/12/22 06:45 12/12/22 06:45 Labs: Abnormal Lab Results - Last 24 Hours (Table) 12/12/22 12/12/22 Range/Units 06:45 06:45 RBC 3.42 L (3.80-5.40) m/uL Hgb 11.2 L (11.4-16.0) gm/dL Hct 33.3 L (34.0-46.0) % Chloride 108 H (98-107) mmol/L Creatinine 0.46 L (0.52-1.04) mg/dL Glucose 115 H (74-99) mg/dL Microbiology - Last 24 Hours (Table) 12/09/22 16:50 Anaerobic Culture - Preliminary Back 12/09/22 16:50 Gram Stain - Final Back Wound Culture - Final Methicillin resist S. aureus Assessment and Plan (1) Post op infection Current Visit: Yes Status: Acute Code(s): T81.40XA - INFECTION FOLLOWING A PROCEDURE, UNSPECIFIED, INIT SNOMED Code(s): 46998377 Plan: Patient presented to hospital with increasing pain swelling and drainage from the lumbar incision in this patient who recently did have a L5-S1 posterior lateral and interbody fusion along with laminal foraminotomy neurotomy for decompression and cage placement subsequently noticed to having increasing erythema to the incision site after removal of the anil now presenting with i ncreasing pain swelling and drainage did have a CT that was negative for any abscess concerning for surgical site infection likely from gram-positive skin gilberto failing outpatient oral Keflex 2Patient did have some drainage which is growing MRSA, patient is status post surgical washout and deep cultures completed on 12/11/2022 3-patient to continue with vancomycin pharmacy to dose , plan is for PICC line and outpatient IV antibiotics Dictation was produced using [employer] dictation software. please excuse any grammatical, word or spelling errors. Time with Patient: Less than 30
--- NOTE | 2022-12-12 21:19 | PN ---
PROGRESS NOTE DATE OF SERVICE: 12/11/2022 CHIEF COMPLAINT: Postop infection following spinal fusion. HISTORY OF PRESENT ILLNESS: This lady is doing fairly well. She is not complaining of any fever, chills, chest pain, etc. PHYSICAL EXAMINATION: CHEST: Clear. CARDIAC: Normal. ABDOMEN: Soft, nontender. IMPRESSION: Postoperative infection of LS spine stabilization procedure. PLAN: Continue with IV antibiotics which she will be on for a long period of time. MMODL / IJN: [id number] /
[2022-12-12] MEDS: SENNOSIDES-DOCUSATE SODIUM 1 EACH TAB PO SCH (21:21)
[2022-12-13] MEDS: ALPRAZolam 0.5 MG TAB PO PRN
[2022-12-13] MEDS: HYDROmorphone 0.5 MG/0.5 ML SYRINGE IVP PRN (00:03)
--- NOTE | 2022-12-13 05:55 | PN ---
PROGRESS NOTE DATE OF SERVICE: 12/09/2022 CHIEF COMPLAINT: Wound infection. HISTORY OF PRESENT ILLNESS: This lady is doing fairly well. She is being reassessed by surgery. She may require surgical drainage. PHYSICAL EXAMINATION: CHEST: Clear. CARDIAC: Normal. ABDOMEN: Soft, nontender. IMPRESSION: Status post LS spine fusion procedure with wound infection. PLAN: Continue with IV fluids and await recommendations from surgery and Infectious Disease. MMODL / IJN: [id number] /
--- NOTE | 2022-12-13 05:55 | CONS ---
CONSULTATION CHIEF COMPLAINT: Infection in the back. HISTORY OF PRESENT ILLNESS: Another admission for this 47-year-old white female. She recently underwent LS spine fusion procedure. She then came to the office with some redness, puffiness and discomfort in the back area one of the incision site and was sent to the hospital. She has had no fever, chills, syncope, etc. PAST MEDICAL HISTORY, FAMILY HISTORY, AND PERSONAL AND SOCIAL HISTORIES: All otherwise unremarkable, noncontributory, or unchanged. REVIEW OF SYSTEMS: Otherwise normal. She has had no chills or fever. PHYSICAL EXAMINATION: VITAL SIGNS: Blood pressure is 123/80 with a pulse of 83, respirations of 29. She is afebrile. GENERAL: She appeared to be slender and in no acute distress. HEENT: Head, ears, eyes, nose, mouth and throat were normal. CHEST: Clear. CARDIAC: Normal. ABDOMEN: Soft and nontender. EXTREMITIES: Normal. There is redness and swelling in the back with some purulent drainage. NEUROLOGICAL: Intact. DIAGNOSES: She is admitted to the hospital with diagnoses, 1. Postoperative wound infection. 2. COPD. PLAN: 1. Bed rest. 2. Cultures. 3. IV fluids. 4. Consult with Orthopedic Surgery. MMODL / IJN: [id number] /
--- NOTE | 2022-12-13 06:12 | PN ---
PROGRESS NOTE DATE OF SERVICE: 12/10/2022 CHIEF COMPLAINT: Postoperative LS spine fusion procedure. HISTORY OF PRESENT ILLNESS: This lady is doing fairly well. She has had no fever, chills, cough, chest pain, etc. PHYSICAL EXAMINATION: CHEST: Clear. CARDIAC: Normal. ABDOMEN: Soft, nontender. IMPRESSION: 1. Infected fusion device of the LS spine. 2. Chronic obstructive pulmonary disease. PLAN: Continue with IV fluids and antibiotics. She is currently comfortable. MMODL / IJN: [id number] /
[2022-12-13] MEDS: CYCLOBENZAPRINE 10 MG TAB PO PRN ×3 (06:46→23:51)
[2022-12-13] MEDS: IBUPROFEN 800 MG TAB PO PRN (06:46)
[2022-12-13 07:28] LABS: African American GFR (CKD) >90 (>60 ml/min/1.73 sqM); Non-African American GFR(CKD) >90 (>60 ml/min/1.73 sqM)
[2022-12-13] MEDS: VANCOMYCIN 1,000 MG in SODIUM CHLORIDE 0.9% 250 ML IVPB SCH ×5 (09:00→23:18)
[2022-12-13] MEDS: LORATADINE 10 MG TAB PO SCH (09:01)
[2022-12-13] MEDS: lisinopriL 10 MG TAB PO SCH (09:01)
[2022-12-13] MEDS: GABAPENTIN 300 MG CAP PO SCH ×3 (09:01→20:00)
--- NOTE | 2022-12-13 09:03 | P.PN ---
Subjective Progress Note Date: 12/13/22 Principal diagnosis: Post-Op Complication Lumbar wound drainage and pain Patient seen and examined this morning. Patient is resting comfortably in bed. She reports her pain is managed on current regimen. Surgical incision to the right lumbar spine, dressing has been changed this morning and MARY drain has been removed. PICC line order has been placed regarding IV home antibiotics recommended by ID. No acute concerns at this time. Patient continues on IV vancomycin, remains afebrile and denies fever/chills. Patient is cleared from Orthopedic standpoint for discharge when medically stable. Objective - Vital Signs Vital signs: Vital Signs Temp 97.9 F 12/13/22 02:43 Pulse 59 L 12/13/22 02:43 Resp 18 12/13/22 02:43 BP 90/54 12/13/22 02:43 Pulse Ox 97 12/13/22 02:43 FiO2 Intake & Output 12/12/22 12/13/22 12/13/22 18:59 06:59 18:59 Intake Total 1080 Balance 1080 Intake: Oral 1080 Other: Voiding Method Toilet # Voids 3 2 - Exam Inspection: Healing incision to the left lumbar spine, Right lumbar spine incision, edges are weel approximated with sutures intact. Dressing changed this morning with removal of the MARY drain 12/13/22. Sensation: Sensation is equal, symmetric, bilaterally intact throughout the upper and lower extremities Palpation: Nontender to palpation throughout bilateral upper and lower extremities. Range of motion: Patient does have full range of motion bilateral upper and lower extremities on exam Motor: 5/5 in all major motor groups in the bilateral upper and lower extremities Special tests: Negative Homans bilaterally. Negative Megha bilaterally. Negative clonus bilaterally. Neurovascular: Radial pulse intact, 2+ bilaterally. Cap refill under 3 seconds in digits upper extremities. - Labs CBC & Chem 7: 12/12/22 06:45 12/13/22 06:14 Labs: Abnormal Lab Results - Last 24 Hours (Table) 12/13/22 Range/Units 06:14 Creatinine 0.42 L (0.52-1.04) mg/dL Microbiology - Last 24 Hours (Table) 12/11/22 12:40 Gram Stain - Preliminary Back 12/11/22 12:41 Gram Stain - Preliminary Back Assessment and Plan Assessment: Postop day 2: Irrigation and debridement of lumbar wound Lumbar wound drainage and pain s/p recent L5-S1 MIS TLIF Plan: -Appreciate hr consultant and team management. -Activity: Ambulate QID, OOB all meals, up and about, limit lifting bending twisting to less than 5 lbs. Use walker or cane if needed for stability. -Daily PT/OT, increase ambulation strength and balance. -Pain control: Adequate at this time -Meds: reviewed -GI ppx: senna, Miralax -DVT PPX: Mechanical, TEDS -Hygiene: Shower today. Maintain dressing clean and dry. Meticulous cleaning after BMs away from the incision site -Drains: Maintain for now. Continue to monitor and record output q shift. -Encourage IS 10x/hr -Dispo: Patient is cleared from Orthopedic standpoint for discharge tre[place] medically stable. *I reviewed and discussed this case with my attending Dr. Love, whom has reviewed this chart and films and is in agreement with assessment and plan of care as outlined above. I have personally seen and examined the patient, performed the documentation and the assessment and plan as written. Number of minutes spent on the visit: 20m.
[2022-12-13] MEDS: HYDROcodone/APAP 7.5-325MG 1 EACH TAB PO PRN (17:10)
[2022-12-13] MEDS: SODIUM CHLORIDE 0.9% 1,000 ML IV SCH (18:40)
[2022-12-13] MEDS: SENNOSIDES-DOCUSATE SODIUM 1 EACH TAB PO SCH (20:00)
[2022-12-14] MEDS ORDERED: VANCOMYCIN TROUGH DUE 1 EACH MISC MISCELLANE ONE (07:00)
--- NOTE | 2022-12-14 07:22 | P.PN ---
Subjective Progress Note Date: 12/14/22 Principal diagnosis: Post-Op Complication Lumbar wound drainage and pain Patient seen and examined this morning. Patient is resting comfortably in bed. She reports her pain is managed on current regimen. Surgical dressing is CDI. PICC line order placed yesterday 12/13/22, awaiting procedure. Patient reports she has been scheduled to recieve IV antibiotics at [facility] with Dr. Maya. No acute concerns at this time. Patient continues on IV vancomycin, remains afebrile and denies fever/chills. Patient is cleared from Orthopedic standpoint for discharge. Objective - Vital Signs Vital signs: Vital Signs Temp 97.7 F 12/14/22 01:00 Pulse 70 12/14/22 01:00 Resp 16 12/14/22 01:00 BP 112/72 12/14/22 01:00 Pulse Ox 97 12/14/22 01:00 FiO2 Intake & Output 12/13/22 12/14/22 12/14/22 18:59 06:59 18:59 Other: Voiding Method Toilet # Voids 4 3 - Exam Inspection: Healing incision to the left lumbar spine, Right lumbar spine incision, edges are weel approximated with sutures intact. Dressing is CDI. Sensation: Sensation is equal, symmetric, bilaterally intact throughout the upper and lower extremities Palpation: Nontender to palpation throughout bilateral upper and lower extremities. Range of motion: Patient does have full range of motion bilateral upper and lower extremities on exam Motor: 5/5 in all major motor groups in the bilateral upper and lower extremities Special tests: Negative Homans bilaterally. Negative Megha bilaterally. Negative clonus bilaterally. Neurovascular: Radial pulse intact, 2+ bilaterally. Cap refill under 3 seconds in digits upper extremities. - Labs CBC & Chem 7: 12/12/22 06:45 12/13/22 06:14 Labs: Abnormal Lab Results - Last 24 Hours (Table) 12/13/22 Range/Units 06:14 Creatinine 0.42 L (0.52-1.04) mg/dL Microbiology - Last 24 Hours (Table) 12/09/22 16:50 Anaerobic Culture - Final Back 12/11/22 12:40 Gram Stain - Preliminary Back Wound Culture - Preliminary Presumptive MRSA 12/11/22 12:41 Gram Stain - Preliminary Back Wound Culture - Preliminary Presumptive MRSA Assessment and Plan Assessment: Postop day 3: Irrigation and debridement of lumbar wound Lumbar wound drainage and pain s/p recent L5-S1 MIS TLIF Plan: -Appreciate consultants intern and team management. -Follow up with Dr. Maya at [facility] for IV antibiotic infusions. -Activity: Ambulate QID, OOB all meals, up and about, limit lifting bending twisting to less than 5 lbs. Use walker or cane if needed for stability. -Daily PT/OT, increase ambulation strength and balance. -Pain control: Adequate at this time -Meds: reviewed -GI ppx: senna, Miralax -DVT PPX: Mechanical, TEDS -Hygiene: Shower today. Maintain dressing clean and dry. Meticulous cleaning after BMs away from the incision site. -Encourage IS 10x/hr -Dispo: Patient is cleared from Orthopedic standpoint for discharge, no further recommendations. Our services will be signing off at this time, please feel free to reach out with any questions or concerns. *I reviewed and discussed this case with my attending Dr. Love, whom has reviewed this chart and films and is in agreement with assessment and plan of care as outlined above. I have personally seen and examined the patient, performed the documentation and the assessment and plan as written. Number of minutes spent on the visit: 20m.
[2022-12-14 07:41] LABS: African American GFR (CKD) >90 (>60 ml/min/1.73 sqM); Non-African American GFR(CKD) >90 (>60 ml/min/1.73 sqM)
--- NOTE | 2022-12-14 08:04 | P.PN ---
Subjective Progress Note Date: 12/13/22 Principal diagnosis: Lumbar surgical site infection Patient is a 47-year-old female with a past medical history significant for chronic back pain in this patient who did have a L5-S1 MIS TLIF performed by Dr. Love on 11/23/2022 patient did have her anil removed on 12/07/2022 , subsequent the patient developing increasing pain and discomfort to the surgical site and some drainage failing outpatient oral Keflex. Patient did have CT that was negative for any fluid collection. The patient is status post I&D of the lumbar wound by orthopedic surgery on 12/11/2022 On today's evaluation that is 12/13/2022, the patient denies having any fever or any chills, the patient is breathing comfortably, the patient denies having any chest pain shortness of breath or cough no nausea vomiting no abdominal pain or diarrhea has been reported patient lower back pain has decreased in intensity. Patient did have vital of 4.5 as of yesterday creatinine 0.42 back culture has been positive for MRSA, Objective - Vital Signs Vital signs: Vital Signs Temp 97.8 F 12/13/22 06:55 Pulse 77 12/13/22 06:55 Resp 15 12/13/22 06:55 BP 112/73 12/13/22 06:55 Pulse Ox 99 12/13/22 06:55 FiO2 Intake & Output 12/12/22 12/13/22 12/13/22 18:59 06:59 18:59 Intake Total 1080 Balance 1080 Intake: Oral 1080 Other: Voiding Method Toilet Toilet # Voids 3 2 - Exam GENERAL DESCRIPTION: Middle-age female up in bed in no distress RESPIRATORY SYSTEM: Unlabored breathing , decreased breath sounds at bases HEART: S1 S2 regular rate and rhythm , ABDOMEN: Soft , no tenderness Lower back especially right-sided has some erythema no drainage was noticed - Labs CBC & Chem 7: 12/12/22 06:45 12/14/22 06:45 Labs: Abnormal Lab Results - Last 24 Hours (Table) 12/13/22 Range/Units 06:14 Creatinine 0.42 L (0.52-1.04) mg/dL Microbiology - Last 24 Hours (Table) 12/11/22 12:40 Gram Stain - Preliminary Back Wound Culture - Preliminary Presumptive MRSA 12/11/22 12:41 Gram Stain - Preliminary Back Wound Culture - Preliminary Presumptive MRSA Assessment and Plan (1) Post op infection Current Visit: Yes Status: Acute Code(s): T81.40XA - INFECTION FOLLOWING A PROCEDURE, UNSPECIFIED, INIT SNOMED Code(s): 06460933 Plan: Patient presented to hospital with increasing pain swelling and drainage from the lumbar incision in this patient who recently did have a L5-S1 posterior lateral and interbody fusion along with laminal foraminotomy neurotomy for decompression and cage placement subsequently noticed to having increasing erythema to the incision site after removal of the anil now presenting with increasing pain swelling and drainage did have a CT that was negative for any abscess concerning for surgical site infection likely from gram-positive skin gilberto failing outpatient oral Keflex 2Patient did have some drainage which is growing MRSA, patient is status post surgical washout and deep cultures completed on 12/11/2022 which is growing MRSA as well. 3patient to continue with the vancomycin however keeping in mind deep infection she will need a PICC line for outpatient IV antibiotics which are currently in the process of getting arranged Dictation was produced using [employer] dictation software. please excuse any grammatical, word or spelling errors.
[2022-12-14] MEDS: GABAPENTIN 300 MG CAP PO SCH ×2 (08:06→15:14)
[2022-12-14] MEDS: lisinopriL 10 MG TAB PO SCH (08:06)
[2022-12-14] MEDS: LORATADINE 10 MG TAB PO SCH (08:07)
[2022-12-14] MEDS ORDERED: VANCOMYCIN 750 MG in SODIUM CHLORIDE 0.9% 250 ML IVPB SCH (09:00)
[2022-12-14] MEDS ORDERED: LIDOCAINE 2% (PF) 20 MG/ML 5 ML VIAL SQ ONE (10:58)
[2022-12-14] MEDS ORDERED: DAPTOmycin 350 MG in SODIUM CHLORIDE 0.9% 50 ML IVPB SCH (13:00)
--- NOTE | 2022-12-14 13:12 | IR ---
PICC LINE PLACEMENT: HISTORY: Infection requiring long-term antibiotic therapy PROCEDURE: Ultrasound and fluoroscopic guidance of PICC line placement. COMPLICATIONS: None ANESTHESIA: 1. 1% Lidocaine locally. FINDINGS/TECHNIQUE: The procedure was explained to the patient. The risks, complications, benefits and alternatives were discussed and any questions were answered. Informed consent was obtained. The patient was placed supine on the fluoroscopic table and prepped and draped in the usual sterile fash ion. Utilizing a 21 gauge needle and sonographic and fluoroscopic guidance, access in the left basi lic vein was achieved and there is placement of a 0.018 guidewire. The vein is patent. A 4-F sheath was placed over the guidewire. The guidewire and dilator were removed and a 4-F. PICC line was plac ed through the sheath with the tip at the level of the SVC. The sheath was removed, the catheter was flushed and sutured into position. The patient was stable throughout the procedure and remained sta ble upon discharge from the Department of Radiology. The vein puncture was patent under ultrasound. A hart scale image was obtained to document patency of the vein punctured. All elements of the maximal barrier technique were utilized. FLUOROSCOPY TIME: DAP 0.1504Gy cm2 IMPRESSION: Successful PICC line placement under ultrasound and fluoroscopic guidance.
--- NOTE | 2022-12-14 14:07 | PN ---
PROGRESS NOTE DATE OF SERVICE: 12/14/2022 CHIEF COMPLAINT: Postoperative wound infection after LS spine fusion. HISTORY OF PRESENT ILLNESS: This lady is doing well. She has had no pain, fever, chills, etc. She is waiting for PICC line to be placed, and then she expects to go home today. PHYSICAL EXAMINATION: VITAL SIGNS: Normal. CHEST: Clear. CARDIAC: Normal. ABDOMEN: Soft and nontender. IMPRESSION: Status post operative wound infection in the lumbosacral spine. PLAN: Probably home today with outpatient followup. MMODL / IJN: [id number] /
--- NOTE | 2022-12-14 15:05 | P.PN ---
Subjective Progress Note Date: 12/14/22 Principal diagnosis: Lumbar surgical site infection Patient is a 47-year-old female with a past medical history significant for chronic back pain in this patient who did have a L5-S1 MIS TLIF performed by Dr. Love on 11/23/2022 patient did have her anil removed on 12/07/2022 , subsequent the patient developing increasing pain and discomfort to the surgical site and some drainage failing outpatient oral Keflex. Patient did have CT that was negative for any fluid collection. The patient is status post I&D of the lumbar wound by orthopedic surgery on 12/11/2022 On today's evaluation that is 12/14/2022, the patient is afebrile, the patient is breathing comfortably , the patient denies chest pain and no significant cough, the patient denies nausea and vomiting no abdominal pain and no diarrhea, patient lower back pain has decreased in intensity. Feeling better no new symptoms Patient did have WBC of 4.5 as of 12/12/2022 creatinine 0.46 back culture has been positive for MRSA, Objective - Vital Signs Vital signs: Vital Signs Temp 97.7 F 12/14/22 07:10 Pulse 75 12/14/22 07:10 Resp 18 12/14/22 07:10 BP 125/84 12/14/22 07:10 Pulse Ox 99 12/14/22 07:10 FiO2 Intake & Output 12/13/22 12/14/22 12/14/22 18:59 06:59 18:59 Other: Voiding Method Toilet # Voids 4 3 - Exam GENERAL DESCRIPTION: Middle-age female up in bed in no distress RESPIRATORY SYSTEM: Unlabored breathing , decreased breath sounds at bases HEART: S1 S2 regular rate and rhythm , ABDOMEN: Soft , no tenderness Lower back especially right-sided has some erythema no drainage was noticed - Labs CBC & Chem 7: 12/12/22 06:45 12/14/22 06:45 Labs: Abnormal Lab Results - Last 24 Hours (Table) 12/14/22 Range/Units 06:45 Creatinine 0.46 L (0.52-1.04) mg/dL Microbiology - Last 24 Hours (Table) 12/09/22 16:50 Anaerobic Culture - Final Back 12/11/22 12:40 Gram Stain - Preliminary Back Wound Culture - Preliminary Presumptive MRSA 12/11/22 12:41 Gram Stain - Preliminary Back Wound Culture - Preliminary Presumptive MRSA Assessment and Plan (1) Post op infection Current Visit: Yes Status: Acute Code(s): T81.40XA - INFECTION FOLLOWING A PROCEDURE, UNSPECIFIED, INIT SNOMED Code(s): 44499601 Plan: Patient presented to hospital with increasing pain swelling and drainage from the lumbar incision in this patient who recently did have a L5-S1 posterior lateral and interbody fusion along with laminal foraminotomy neurotomy for decompression and cage placement subsequently noticed to having increasing erythema to the incision site after removal of the anil now presenting with increasing pain swelling and drainage did have a CT that was negative for any abscess concerning for surgical site infection likely from gram-positive skin gilberto failing outpatient oral Keflex 2Patient did have some drainage which is growing MRSA, patient is status post surgical washout and deep cultures completed on 12/11/2022 which is growing MRSA as well. 3patient did got a PICC line and antibiotics switched to daptomycin as the patient chooses to go to infusion clinic for a daily dose of antibiotics instead of IV antibiotic at home prescription provided to the geriatric case manager and close outpatient follow-up Dictation was produced using [employer] dictation software. please excuse any grammatical, word or spelling errors. Time with Patient: Less than 30
[2022-12-14] MEDS: HYDROcodone/APAP 7.5-325MG 1 EACH TAB PO PRN (15:14)
[2022-12-14] MEDS: CYCLOBENZAPRINE 10 MG TAB PO PRN (15:14)
[2022-12-14 15:49] VITALS: BP 123/81; RESP 18; TEMP 97.3
[2022-12-14 15:53] VITALS: PULSE 76
[2022-12-14 16:10] VITALS: BMI 23.0
--- NOTE | 2022-12-16 11:58 | P.OP ---
Date of Procedure: 12/11/22 Preoperative Diagnosis: 1. Right-sided low back MIS incision superficial infection 2. Low back pain 3. Status post minimally invasive L5-S1 T lift Postoperative Diagnosis: 1. Right-sided low back MIS incision superficial infection 2. Low back pain 3. Status post minimally invasive L5-S1 T lift Procedure(s) Performed: 1. Irrigation debridement lumbar wound 10 x 8 x4 cm skin soft tissue muscle and bone using the following - skin knife used to excise infected skin and creating margins - curet used to remove necrotic fat and subcu tissue - rongeur used to remove necrotic subcu tissue 2. Complex closure lumbar wound 3 layered 10 x 8 x 4 cm Implants: none Anesthesia: GETA Surgeon: Jacky Love Payable Manager #1: Gwen Munson (Gwen Munson PLUMBING AND HEATING CONTRACTOR Was present and assisted with all aspects of the case from positioning to dressing placement) Estimated Blood Loss (ml): 50 IV fluids (ml): 1,000 Urine output (ml): 0 Pathology: other (2 lumbar spine wound) Condition: stable Disposition: PACU Indications for Procedure: Mendy Bates is a 47-year-old female presenting for evaluation of lumbar wound drainage and pain. It was my pleasure to have seen and examined Mendy Bates. In our visit today we have had a chance to go over subjective complaints, physical examination findings and treatments including the natural course history without intervention and various interventional options. The patients imaging demonstrates fluid collection superficially over the left sided minimally invasive incision. On physical exam, Mendy Bates demonstrates wound drainage or erythema and fluctuance around the right-sided lumbar MIS wound. I have explained to the patient that as their condition progresses it will cause further neurological deficits and eventual paralysis. Based on the patients imaging, physical exam, and the rapid progression and disabling nature of their symptoms, at this time I recommend surgery in the form or a: lumbar wound irrigation debridement. I discussed the risk and benefits of this procedure at length with Mendy Bates. The patient and agreed to considered pursuing the procedure abovementioned. Prior to surgery, she should follow up with her PCP (Cardio, ID, IM etc) for clearance. Questions were invited and answered, and the patient wishes to proceed as outlined below. Currently, I am recommendin. lumbar wound irrigation and debridement Description of Procedure: The patient was seen and examined in the preoperative area. All preoperative protocols were followed. Informed consent was obtained risks and benefits of the procedure were discussed at length. Risks including bleeding infection damage to the surrounding tissue and risk of reoperation were discussed with the patient. Risk of anesthesia up to and including was a discussed with the patient. These are outlined in the risk review. They were willing to accept these risks and all of the risks of surgery. The patient was given a weight- based dose of antibiotics in the form of vancomycin from the floor. The patient was seen and evaluated by the anesthesia team who deemed them fit for surgery. The site was marked, the patient was willing to proceed with the procedure. The patient was transferred to the operative suite by the Department of anesthesia. They were then drifted off to sleep by the department anesthesia and GETA was performed. The patient tolerated this well. [Guido catheter was placed by nursing staff, atraumatically]. Once confirmation of lines and ventilation the patient was transferred to a [prone Praveen table very carefully]. All bony prominences including wrists, elbows, axilla, chest, hips, and thighs, and feet were padded very well. Special attention was paid to the genitalia and these were padded accordingly. SCDs were placed on bilateral lower extremities and were connected. Arms were well padded and placed [on arm boards up and out in the 90/90 position]. Once in position, again we confirmed good ventilation capabilities and that lines were running appropriately. The patient's lumbar spine was then exposed. 1010s were placed outlining the incision site. Standard alcohol was used to clean the incision site and allowed to dry. C-arm was used to biomark the patient and confirm level for incision which was marked with a skin marker. Operative briefing was performed with all teams and everyone in agreement to proceed. The patient was then prepped and draped in a normal sterile fashion. Timeout was then performed and all parties were in agreement with the procedure to be performed. The right MIS incision was then ellipticized sure fresh edges and removed. We excised then the subcutaneous tissue as well as the muscle in the area revealing a likely suture abscess that propagated deep. It did not go deep to the fascia however. 2 cultures were taken of this area. Phlegmon in the area was excised using a rongeur and curet. The hardware was identified the fascia in this area was still intact. It was then debrided. 12 L of fluid including antibiotic fluid Irricept and Betadine irrigation were sent through the wound. During this time debridement was happening. After this the area was inspected and was very clean. A deep drain was placed. The fascia was then closed with PDS deep subcu tissue closed with 0 PDS. Superficial subcu tissue closed with 2-0 PDS and the skin was closed with 2-0 nylon in a simple fashion. Wound edges approximated very well. The wound was then cleaned and dressed sterilely with an operative foam dressing. The patient was transferred back to their hospital bed atraumatically. [Drain continued to hold suction and were in good position]. Patient was then awakened and extubated by the department of anesthesia having tolerated the procedure very well with no complications. They were transferred to the postoperative care unit in stable condition.
--- NOTE | 2022-12-20 23:34 | DS ---
DISCHARGE SUMMARY CHIEF COMPLAINT: Pain, redness, swelling in the back. HISTORY OF PRESENT ILLNESS AND PHYSICAL EXAMINATION: Details of this lady's history and physical can be found in the initial workup. LABORATORY STUDIES: While she is in the hospital, she had laboratory studies, details of which can be found in the laboratory section of her chart. COURSE IN THE HOSPITAL: After admission, she was placed on bedrest, started on intravenous fluids and IV antibiotics. She was seen by Orthopedic Surgery and followed. While in the hospital, her drainage slowed and she began to improve. Plan was to send her home with a PICC line on long-term antibiotics to see if this would control the infection. FINAL DIAGNOSIS: Secondary infection of LS spine fusion. OPERATIONS: None. CONSULTATIONS: Infectious Disease and Orthopedics. CONDITION: She is improved. MMODL / IJN: [id number] /
--- NOTE | 2022-12-22 08:57 | PN ---
PROGRESS NOTE DATE OF SERVICE: 12/13/2022 CHIEF COMPLAINT: Postop wound infection following LS spine fusion. HISTORY OF PRESENT ILLNESS: This lady is doing well. Pain is well controlled. She is not febrile. PHYSICAL EXAMINATION: CHEST: Clear. CARDIAC: Normal. IMPRESSION: 1. Postoperative wound infection following LS spine fusion. 2. Chronic obstructive pulmonary disease. PLAN: Probably home, soon on long-term IV antibiotic management. MMODL / IJN: [id number] /
== END 2022-12-14 17:10 | disposition home or self-care (01) | DRG 711 ==
LOC: EC 13:51 → 4SSUR 15:56
PROVIDERS: ADMIT Family Medicine; ATTEND Family Medicine
PROC: 0QB10ZZ Excision of Sacrum, Open Approach (ICD-10-PCS; principal; 2022-12-11 07:30)
PROC: 0QB00ZZ Excision of Lumbar Vertebra, Open Approach (ICD-10-PCS; principal; 2022-12-11 07:30)
PROC: 02HV33Z Insertion of Infusion Device into Superior Vena Cava, Percutaneous Approach (ICD-10-PCS; 2022-12-14)
DX: T81.41XA Infection following a procedure, superficial incisional surgical site, initial encounter (principal); L03.312 Cellulitis of back [any part except buttock and flank]; B95.62 Methicillin resistant Staphylococcus aureus infection as the cause of diseases classified elsewhere; I10 Essential (primary) hypertension; M19.90 Unspecified osteoarthritis, unspecified site; F41.9 Anxiety disorder, unspecified; J44.0 Chronic obstructive pulmonary disease with (acute) lower respiratory infection; Z79.899 Other long term (current) drug therapy; Z85.41 Personal history of malignant neoplasm of cervix uteri; Z98.1 Arthrodesis status; Z87.891 Personal history of nicotine dependence; Z91.013 Allergy to seafood
CPT/HCPCS: 36415; 36573; 72132; 80048; 80053; 80202; 81025; 82565; 83605; 85025; 85652; 86140; 87070; 87075; 87077; 87102; 87116; 87186; 87205; 87206; 96361; 96365; 96375; 99285

== ENCOUNTER → 2023-06-22 | Outpatient (CLI) | payer OTHER ==
[2023-06-22 15:31] VITALS: BP 131/85; PULSE 89; RESP 16; TEMP 97.8
--- NOTE | 2023-06-22 15:36 | P.GSHP ---
History of Present Illness H&P Date: 06/22/23 Chief Complaint: breast pain Allison is a 48 year old female seen in consultation for Dr. Bowman regarding breast pain. She had a bilateral mammogram on 02-15-23 which showed a 2.7 cm isodense mass at 12:00. An ultrasound was recommended. The ultrasound was done on 03-13-23 and showed a simple cyst in the area. It was read as BIRAD 2. She is complaining of pain at the 12 oClock position of hte right breast. The pain has been present since March. It radiates to the back of the breast, and is worse with any pressure. She states she can feel nodularity at that site. She is not complaining of any infection in the breast or any trauma in the breast. She is complaining of bilateral nipple discharge for 25 years with squeezing. She has no bloody nipple discharge. She has not had any surgery on her breast. The patient had a history of cervical cancer at the age of 13. This was treated with freezing and scraping. She has been cancer free for many years. CAffien: 3 cups of coffee/am and MTN Dew 1/2 2 liter in the afternoon nicotine: 1/2 PPD chocolate: three times a week BCP: started at 7 and used for < 1 year hormnes: none Family History: mother: Esophageal cancer, smoker Father: Intraperitoneal mass above his kidney/was cancer maternal grandmother: throat cancer smoker Hormonal History: menarche: 7 , breast fed: no, age at first : 18 menopause: stopped having her periods about 1 year ago hormones: none Surgical history: gallbaldder tubal opening from cervix to uterus back surgery/fusion lower spine October 2022 Medical History: HTN anxiety Social History: nicotine: as above alcohol: occasional drugs: Marijuana daily to relax - Constitutional Constitutional: Reports sweats - EENT Eyes: denies blurred vision, denies pain Ears: bilateral: tinnitus, deny: decreased hearing Ears, nose, mouth and throat: Reports headache, Denies sore throat - Breasts Breasts: bilateral: as per HPI - Cardiovascular Cardiovascular: Reports chest pain - Respiratory Respiratory: Reports as per HPI, Reports cough - Gastrointestinal Gastrointestinal: Denies abdominal pain, Denies diarrhea, Denies nausea, Denies vomiting - Genitourinary (Female) Genitourinary: Denies dysuria, Denies hematuria - Menstruation Menstruation: Reports as per HPI, Reports postmenopausal - Musculoskeletal Musculoskeletal: Reports myalgias - Integumentary Integumentary: Denies pruritus, Denies rash - Neurological Neurological: Reports numbness, Denies weakness - Psychiatric Psychiatric: Reports anxiety - Endocrine Endocrine: Reports fatigue, Reports weight change - Hematologic/Lymphatic Comment: none - Allergic/Immunologic Allergic/Immunologic: Reports seasonal allergies Past Medical History Past Medical History: Cancer, Hypertension, Musculoskeletal Disorder, Osteoart hritis (OA) Additional Past Medical History / Comment(s): cervical cancer when 13 years old, allergy induced asthma, pain down right buttock & leg, migraines History of Any Multi-Drug Resistant Organisms: MRSA Date of last positivie culture/infection: 12/11/22 MDRO Source:: Back Past Surgical History: Cholecystectomy, Tubal Ligation Additional Past Surgical History / Comment(s): conization of cervix, hysterscopy to remove scar tissue Past Anesthesia/Blood Transfusion Reactions: No Reported Reaction Past Psychological History: Anxiety Smoking Status: Former smoker Past Alcohol Use History: Rare Additional Past Alcohol Use History / Comment(s): quit smoking 1 week ago, smoked for 12 yrs., <1ppd, rarely drinks alcohol Past Drug Use History: Marijuana Additional Drug Use History / Comment(s): has edibles & smokes daily - Past Family History Mother Family Medical History: No Reported History Medications and Allergies Home Medications Medication Instructions Recorded Confirmed Type Cetirizine HCl [Zyrtec] 10 mg PO DAILY 11/16/22 06/22/23 History Gabapentin [Neurontin] 300 mg PO TID PRN 11/16/22 06/22/23 History Ibuprofen [Motrin] 800 mg PO Q6H PRN 11/16/22 06/22/23 History Nicotine 14Mg/24Hr Patch [Habitrol] 1 patch TRANSDERM DAILY PRN 11/16/22 06/22/23 History lisinopriL [Zestril] 10 mg PO DAILY 11/16/22 06/22/23 History HYDROcodone/APAP 10-325MG [Bradford 1 tab PO Q6HR PRN #42 tab 11/24/22 06/22/23 Rx 10-325] Ondansetron [Zofran] 4 mg PO Q8HR PRN #21 tab 11/25/22 06/22/23 Rx Acetaminophen Tab [Tylenol] 500 - 1,000 mg PO Q6H PRN 12/07/22 06/22/23 History ALPRAZolam [Xanax] 0.5 mg PO TID PRN 12/08/22 06/22/23 History Cyclobenzaprine [Flexeril] 10 mg PO TID PRN 12/08/22 06/22/23 History Sennosides/Docusate Sodium [Senna 1 tab PO DAILY PRN 12/08/22 06/22/23 History Plus 8.6-50 mg Softgel] Cyclobenzaprine [Flexeril] 10 mg PO TID #60 tab 12/14/22 06/22/23 Rx DAPTOmycin [Cubicin] 350 mg IVPB Q24HR@1200 #30 each 12/14/22 06/22/23 Rx HYDROcodone/APAP 7.5-325MG [Bradford 1 each PO Q4-6H PRN #42 tab 12/14/22 06/22/23 Rx 7.5] Allergies Allergy/AdvReac Type Severity Reaction Status Date / Time Fish Containing Products Allergy Swelling Verified 06/22/23 15:09 [Fish] paroxetine [From Paxil] Allergy Hallucinati Verified 06/22/23 15:09 ons prochlorperazine Allergy Itching Verified 06/22/23 15:09 [From Compazine] Surgical - Exam Vital Signs Temp Pulse Resp BP Pulse Ox 97.8 F 89 16 131/85 97 06/22/23 15:10 06/22/23 15:10 06/22/23 15:10 06/22/23 15:10 06/22/23 15:10 - General no distress - Eyes normal ocular movement - Neck trachea midline - Respiratory normal respiratory effort - Cardiovascular Rhythm: regular Heart Sounds: normal: S1, S2 - Abdomen Abdomen: soft, non tender, no guarding, no rigid, no rebound - Integumentary normal turgor - Neurologic no disoriented, no combative - Musculoskeletal normal gait, normal posture - Psychiatric oriented to time, oriented to person, oriented to place, speech is normal, memory intact Breast Exam: BRA: sports bra medium inspection: Bilateral grade 2 ptosis Palpation: Right breast: Multi positional exam fibrocystic changes, at the 12 o'clock position approximately 5 cm from the nipple there is an area of approximately 2 cm of fullness consistent with Right axilla: No adenopathy of concern Left breast: Multi positional exam no dominant masses or nodules of concern Left axilla: No adenopathy of concern Results Bilateral mammogram performed 02/15/2023 which led to an ultrasound of the right breast this was performed on 03/13/2023 findings were consistent with a right breast 2.3 cm cystic lesion The xrays were done at [facility] Assessment and Plan Assessment: Impression: Right breast pain most likely consistent with fibrocystic changes cyst at 12 o'clock position right breast Plan: Ultrasound-guided drainage cyst right breast Patient to follow-up after ultrasound-guided drainage Patient we have discussed causes of breast pain which include nicotine/caffeine/patient will consider lifestyle modification I have given her the information to order the book solving the [facility] CC: Dr. Bowman
== END ==
LOC: WWCWWP 14:57
PROVIDERS: ATTEND Surgery
DX: N64.4 Mastodynia (principal); F17.200 Nicotine dependence, unspecified, uncomplicated; F12.90 Cannabis use, unspecified, uncomplicated; Z91.013 Allergy to seafood; Z88.5 Allergy status to narcotic agent; Z88.3 Allergy status to other anti-infective agents

== ENCOUNTER → 2023-07-10 | Day surgery (SDC) | payer OTHER ==
--- NOTE | 2023-07-17 08:02 | MM ---
Reason for Exam: Post Procedure Mammogram. Last mammogram was performed 7 year(s) and 2 month(s) ago. Risk Values: Michelle 5 year model risk: 0.6%. NCI Lifetime model risk: 6.0%. Prior Study Comparison: 06/07/2011 Screening Mammogram, [facility]. 05/23/2016 Bilateral Diagnostic Mammogram, [facility]. Tissue Density: Right: The breasts are heterogeneously dense, which may obscure small masses. Pathology Description: wing clip The ultrasound guided cyst aspiration procedure was explained to the patient. The risks, benefits, alternatives were discussed. An informed consent was then obtained. A time out was performed . The patient was placed in supine positioning for imaging and for the procedure. The overlying skin was prepped with betadine and sterilely draped in usual sterile fashion. 10 ml 1% lidocaine was used as anesthetic into the skin and deeper breast tissue up to area of concern in the right 12:00 o'clock breast, 5 cm from nipple. Under ultrasound guidance, an 12-gauge spinal needle was advanced into the cyst and aspiration yielded 2 mL of turbid brown fluid. The fluid was labeled and sent for laboratory analysis. A clip was left in lesion. Good hemostasis was obtained with direct pressure. Postprocedure mammogram: The patient was transferred to mammography for physician ordered post procedure mammogram for clip placement verification. The clip is in the expected region of the biopsy. The patient tolerated the procedure well without any immediate complication. The patient was discharged to home in stable condition. Impression: Successful ultrasound guided cyst aspiration right 12:00 breast. Cytology pending. Pathology Results: Result: Benign, Fibrocystic change. Pathology and radiology were reviewed. Findings are concordant. RIGHT BREAST, TWELVE O'CLOCK, ASPIRATE: Apocrine and metaplastic epithelial lining cells with background degenerated cellular material consistent with cyst contents/fibrocystic changes. No cytologically malignant cells identified. Overall Assessment: Benign Assessment: MG diagnostic mammo RT wo CAD - Right: Benign, BI-RAD 2. Management: Diagnostic Mammogram of the right breast in 6 months. Electronically signed and approved by: Talat Esparza M.D. Radiologis
== END ==
LOC: RADUSWWP 07:42
PROVIDERS: ATTEND Surgery
DX: N63.10 Unspecified lump in the right breast, unspecified quadrant (principal)
CPT/HCPCS: 88108; 88305; 77065; 76942; 19000; A4648

== ENCOUNTER → 2023-07-19 | Outpatient (CLI) | payer OTHER ==
--- NOTE | 2023-07-19 13:19 | P.PN ---
Subjective Progress Note Date: 07/19/23 Principal diagnosis: fibrocystic breast disease breast pain Allison is a 48 year old female seen in consultation for Dr. Bowman regarding breast pain. She had a bilateral mammogram on 02-15-23 which showed a 2.7 cm isodense mass at 12:00. An ultrasound was recommended. The ultrasound was done on 03-13-23 and showed a simple cyst in the area. It was read as BIRAD 2. She is complaining of pain at the 12 oClock position of hte right breast. The pain has been present since March. It radiates to the back of the breast, and is worse with any pressure. She states she can feel nodularity at that site. She is not complaining of any infection in the breast or any trauma in the breast. She is complaining of bilateral nipple discharge for 25 years with squeezing. She has no bloody nipple discharge. She has not had any surgery on her breast. The patient had a history of cervical cancer at the age of 13. This was treated with freezing and scraping. She has been cancer free for many years. 07-19-23 Allison is status post ultrasound guided aspiration of a 2cc cyst in the right breast on 07-10-23. This was benign specific. She tolerated the procedure without difficulty. She is not having pain since the cyst was aspirated, it has improved. CAffien: 3 cups of coffee/am and MTN Dew 1/2 2 liter in the afternoon nicotine: 1/2 PPD chocolate: three times a week BCP: started at 7 and used for < 1 year hormnes: none Family History: mother: Esophageal cancer, smoker Father: Intraperitoneal mass above his kidney/was cancer maternal grandmother: throat cancer smoker Hormonal History: menarche: 7 , breast fed: no, age at first : 18 menopause: stopped having her periods about 1 year ago hormones: none Surgical history: gallbaldder tubal opening from cervix to uterus back surgery/fusion lower spine October 2022 Medical History: HTN anxiety Social History: nicotine: as above alcohol: occasional drugs: Marijuana daily to relax Objective - Constitutional General appearance: Present: cooperative - EENT Eyes: Present: EOMI ENT: Present: hearing grossly normal - Neck Neck: Present: normal ROM - Integumentary Integumentary Comment(s): biopsy site right side no evidence of hematoma or infection Integumentary: Present: normal turgor Assessment and Plan Assessment: Pression: Fibrocystic breast changes Recent aspiration cyst on 07-10-2023 benign specific Plan: Right breast mammogram and ultrasound in 6 months with physician exam at that time Patient to follow-up sooner any questions or concerns CC: Dr. Bowman
[2023-07-19 14:23] VITALS: BP 165/85; PULSE 71; RESP 16; TEMP 97.8
== END ==
LOC: WWCWWP 12:44
PROVIDERS: ATTEND Surgery
DX: N60.11 Diffuse cystic mastopathy of right breast (principal); N60.12 Diffuse cystic mastopathy of left breast; F17.200 Nicotine dependence, unspecified, uncomplicated; F12.90 Cannabis use, unspecified, uncomplicated; Z91.013 Allergy to seafood; Z88.5 Allergy status to narcotic agent; Z88.3 Allergy status to other anti-infective agents

== ENCOUNTER → 2024-01-21 | Outpatient (CLI) | payer OTHER ==
--- NOTE | 2024-01-21 10:57 | USB ---
Reason for Exam: Follow-up at short interval from prior study. Patient History: 07/10/2023, Benign US breast aspiration single RT on the right side. Risk Values: Michelle 5 year model risk: 0.6%. NCI Lifetime model risk: 6.0%. Technique: Method: Targeted. Prior Study Comparison: 06/07/2011 Screening Mammogram, [facility]. 05/23/2016 Bilateral Diagnostic Mammogram, [facility]. 07/10/2023 Right MG diagnostic mammo RT wo CAD, [facility]. Findings: The upper section of the breast of the right breast, the axilla of the right breast and the retroareolar of the right breast were scanned. Ultrasound right breast 12:00 position including scanning of the subareolar region and axilla. At the 12:00 position, 5 cm from the nipple at the site of previous aspirated cyst, clip is identified. No solid or cystic lesion or axillary lymphadenopathy. Overall Assessment: Benign, BI-RAD 2 Management: Screening Mammogram of both breasts in 6 months. A clinical breast exam by your physician is recommended on an annual basis and results should be correlated with mammographic findings. This exam should not preclude additional follow-up of suspicious palpable abnormalities. Results were given to the patient verbally at the time of exam. [facility], , 01/21/2024 10:55 AM. Electronically signed and approved by: Geo Jones M.D. Radiologist
== END | disposition home or self-care (01) ==
LOC: RADUSWWP 10:13
PROVIDERS: ATTEND Surgery
DX: N63.0 Unspecified lump in unspecified breast (principal)

== ENCOUNTER → 2024-01-28 | Outpatient (CLI) | payer OTHER ==
--- NOTE | 2024-01-28 11:51 | P.PN ---
Subjective Progress Note Date: 01/28/24 Principal diagnosis: breast pain breast pain Allison is a 48 year old female seen in consultation for Dr. Bowman regarding breast pain. She had a bilateral mammogram on 02-15-23 which showed a 2.7 cm isodense mass at 12:00. An ultrasound was recommended. The ultrasound was done on 03-13-23 and showed a simple cyst in the area. It was read as BIRAD 2. She is complaining of pain at the 12 oClock position of hte right breast. The pain has been present since March,. It radiates to the back of the breast, and is worse with any pressure. She states she can feel nodularity at that site. She was not complaining of any infection in the breast or any trauma in the breast. She is complaining of bilateral nipple discharge for 25 years with squeezing. She had no bloody nipple discharge. She had not had any surgery on her breast. The patient had a history of cervical cancer at the age of 13. This was treated with freezing and scraping. She has been cancer free for many years. The patient had ultrasound guided aspiration of a 2 cc cyst on 07-10-23 in the right breast at 12 oclock. This caused her pain to subside. The findings were benign specific. She had a repeat right breast ultrasound on 01-21-24 no recurrent cyst noted. At this time she is not complaining of any new lumps masses or nodules of concern in her breast, and since the ultrasound-guided aspiration on 07-10-2023 the pain which she noted before has resolved. CAffien: 3 cups of coffee/am and MTN Dew 1/2 2 liter in the afternoon nicotine: 1/2 PPD, encouraged to stop smoking chocolate: three times a week BCP: started at 7 and used for < 1 year hormnes: none Family History: mother: Esophageal cancer, smoker Father: Intraperitoneal mass above his kidney/was cancer maternal grandmother: throat cancer smoker Hormonal History: menarche: 7 , breast fed: no, age at first : 18 menopause: stopped having her periods about 1 year ago hormones: none Surgical history: gallbaldder tubal opening from cervix to uterus back surgery/fusion lower spine October 2022 Medical History: HTN anxiety COPD Social History: nicotine: as above alcohol: occasional drugs: Marijuana daily to relax - Constitutional Constitutional: Reports sweats - EENT Eyes: denies blurred vision, denies pain Ears: bilateral: tinnitus, deny: decreased hearing Ears, nose, mouth and throat: Reports headache, Denies sore throat - Breasts Breasts: bilateral: as per HPI - Cardiovascular Cardiovascular: Reports chest pain - Respiratory Respiratory: Reports as per HPI, Reports cough - Gastrointestinal Gastrointestinal: Denies abdominal pain, Denies diarrhea, Denies nausea, Denies vomiting - Genitourinary (Female) Genitourinary: Denies dysuria, Denies hematuria - Menstruation Menstruation: Reports as per HPI, Reports postmenopausal - Musculoskeletal Musculoskeletal: Reports myalgias - Integumentary Integumentary: Denies pruritus, Denies rash - Neurological Neurological: Reports numbness, Denies weakness - Psychiatric Psychiatric: Reports anxiety - Endocrine Endocrine: Reports fatigue, Reports weight change - Hematologic/Lymphatic Comment: none - Allergic/Immunologic Allergic/Immunologic: Reports seasonal allergies Past Medical History Past Medical History: Cancer, Hypertension, Musculoskeletal Disorder, Osteoarthritis (OA) Additional Past Medical History / Comment(s): cervical cancer when 13 years old, allergy induced asthma, pain down right buttock & leg, migraines History of Any Multi-Drug Resistant Organisms: MRSA Date of last positivie culture/infection: 12/11/22 MDRO Source:: Back Past Surgical History: Cholecystectomy, Tubal Ligation Additional Past Surgical History / Comment(s): conization of cervix, hysterscopy to remove scar tissue Past Anesthesia/Blood Transfusion Reactions: No Reported Reaction Past Psychological History: Anxiety Smoking Status: Former smoker Past Alcohol Use History: Rare Additional Past Alcohol Use History / Comment(s): quit smoking 1 week ago, smoked for 12 yrs., <1ppd, rarely drinks alcohol Past Drug Use History: Marijuana Additional Drug Use History / Comment(s): has edibles & smokes daily - Past Family History Mother Family Medical History: No Reported History Medications and Allergies Home Medications Medication Instructions Recorded Confirmed Type Cetirizine HCl [Zyrtec] 10 mg PO DAILY 11/16/22 06/22/23 History Gabapentin [Neurontin] 300 mg PO TID PRN 11/16/22 06/22/23 History Ibuprofen [Motrin] 800 mg PO Q6H PRN 11/16/22 06/22/23 History Nicotine 14Mg/24Hr Patch [Habitrol] 1 patch TRANSDERM DAILY PRN 11/16/22 06/22/23 History lisinopriL [Zestril] 10 mg PO DAILY 11/16/22 06/22/23 History HYDROcodone/APAP 10-325MG [[place] 1 tab PO Q6HR PRN #42 tab 11/24/22 06/22/23 Rx 10-325] Ondansetron [Zofran] 4 mg PO Q8HR PRN #21 tab 11/25/22 06/22/23 Rx Acetaminophen Tab [Tylenol] 500 - 1,000 mg PO Q6H PRN 12/07/22 06/22/23 History ALPRAZolam [Xanax] 0.5 mg PO TID PRN 12/08/22 06/22/23 History Cyclobenzaprine [Flexeril] 10 mg PO TID PRN 12/08/22 06/22/23 History Sennosides/Docusate Sodium [Senna 1 tab PO DAILY PRN 12/08/22 06/22/23 History Plus 8.6-50 mg Softgel] Cyclobenzaprine [Flexeril] 10 mg PO TID #60 tab 12/14/22 06/22/23 Rx DAPTOmycin [Cubicin] 350 mg IVPB Q24HR@1200 #30 each 12/14/22 06/22/23 Rx HYDROcodone/APAP 7.5-325MG [[place] 1 each PO Q4-6H PRN #42 tab 12/14/22 06/22/23 Rx 7.5] Allergies Allergy/AdvReac Type Severity Reaction Status Date / Time Fish Containing Products Allergy Swelling Verified 06/22/23 15:09 [Fish] paroxetine [From Paxil] Allergy Hallucinati Verified 06/22/23 15:09 ons prochlorperazine Allergy Itching Verified 06/22/23 15:09 [From Compazine] Objective - Constitutional General appearance: Present: cooperative - EENT Eyes: Present: EOMI ENT: Present: hearing grossly normal - Neck Neck: Present: normal ROM - Respiratory Respiratory: bilateral: CTA - Cardiovascular Heart sounds: normal: S1, S2 - Integumentary Integumentary: Present: normal turgor - Musculoskeletal Musculoskeletal: Present: gait normal - Psychiatric Psychiatric: Present: A&O x's 3, appropriate affect, intact judgment & insight - Additional findings Additional findings: Breast Exam: BRA: sports bra medium inspection: Bilateral grade 2 ptosis Palpation: Right breast: Multi positional exam fibrocystic changes Right axilla: No adenopathy of concern Left breast: Multi positional exam no dominant masses or nodules of concern Left axilla: No adenopathy of concern Assessment and Plan Assessment: Impression: Right breast pain most likely consistent with fibrocystic changes cyst at 12 o'clock position right breast resolved ultrasound guided aspiration Plan: bilateral mammogram in February 2024 with appointment at that time Patient we have discussed causes of breast pain which include nicotine/caffeine/patient will consider lifestyle modification I have given her the information to order the book solving the ministry of breast pain on her last visit CC: Dr. Bowman
[2024-01-28 11:54] VITALS: BP 107/75; PULSE 87; RESP 16; TEMP 98
== END ==
LOC: WWCWWP 10:57
PROVIDERS: ATTEND Surgery

== ENCOUNTER → 2024-02-18 | Outpatient (CLI) | payer OTHER ==
--- NOTE | 2024-02-20 12:43 | MM ---
Reason for Exam: Screening (asymptomatic). Last mammogram was performed 7 year(s) and 9 month(s) ago. Patient History: Menarche at age 7. First Full-Term at age 19. Postmenopausal. 07/10/2023, Benign US breast aspiration single RT on the right side. Risk Values: Michelle 5 year model risk: 0.9%. NCI Lifetime model risk: 8.8%. Prior Study Comparison: 06/07/2011 Screening Mammogram, [facility]. 05/23/2016 Bilateral Diagnostic Mammogram, [facility]. 07/10/2023 Right MG diagnostic mammo RT wo CAD, [facility]. 01/21/2024 Right US breast limited RT, [facility]. Tissue Density: There are scattered areas of fibroglandular density. Findings: Analyzed By CAD. Right breast: There is no suspicious group of microcalcifications or new suspicious mass. Left breast: There is no suspicious group of microcalcifications or new suspicious mass. Overall Assessment: Negative, BI-RAD 1 Management: Screening Mammogram of both breasts in [address] [facility] will attempt to contact patient to return for supplemental views and ultrasound if indicated. Patient should continue monthly self-breast exams. A clinical breast exam by your physician is recommended on an annual basis. This exam should not preclude additional follow-up of suspicious palpable abnormalities. Note on Michelle scores and lifetime risk: 1. A Michelle score greater than 3% is considered moderate risk. If this is the case, consider specialist referral to assess eligibility for a risk reducing agent. 2. If overall lifetime risk for the development of breast cancer is 20% or higher, the patient may qualify for future screening with alternating mammogram and breast MRI. [facility], , 02/20/2024 12:40 PM. Electronically signed and approved by: Patrick Reynolds DO
== END | disposition home or self-care (01) ==
LOC: RADMAMWWP 08:46
PROVIDERS: ATTEND Surgery
DX: Z12.31 Encounter for screening mammogram for malignant neoplasm of breast (principal); Z78.0 Asymptomatic menopausal state; R92.323 Mammographic fibroglandular density, bilateral breasts
CPT/HCPCS: 77067